=== PATIENT | female | born 1950 | race Caucasian/White ===

== ENCOUNTER → 2021-06-18 | Outpatient (CLI) | payer OTHER, SELFPAY ==
[2021-06-24 21:34] LABS: HPV Reflexed? NOT INDICATED
== END | disposition home or self-care (01) ==
PROVIDERS: Referring Provider Nurse Practitioner Family; Visit Provider Nurse Practitioner Family
DX: Z00.00 Encounter for general adult medical examination without abnormal findings (principal)
CPT/HCPCS: 88175; G0145

== ENCOUNTER 2021-07-15 14:58 | Outpatient (CLI) | payer BC, SELFPAY ==
--- NOTE | 2021-07-15 15:15 | BD_ITS ---
STUDY: DUAL ENERGY X-RAY ABSORPTIOMETRY / DXA REASON FOR EXAM: Female, 70 years old. Z780. The patient is postmenopausal. TECHNIQUE: Bone Mineral Density (BMD) measurements of lumbar spine and bilateral hips were obtained. COMPARISON: None. FINDINGS: Lumbar Spine (L1-L4): g/cm2 (0.994) / T-score (-0.4) / Z-score (1.6) Findings are suggestive of normal bone density with a low fracture risk. Left Femur Total: g/cm2 (0.755) / T-score (-1.5) / Z-score (-0.1) Left Femoral Neck: g/cm2 (0.644) / T-score (-1.8) / Z-score (-0.1) Right Femur Total: g/cm2 (0.758) / T-score (-1.5) / Z-score (-0.1) Right Femoral Neck: g/cm2 (0.647) / T-score (-1.8) / Z-score (-0.1) BD/Dexa Bone Density Study IMPRESSION: The patient is considered osteopenic as outlined below according to World Payam Organization (WHO) criteria with a moderate fracture risk. Reference Information: The T-score is the number of standard deviations above or below the standard which is normal for young adults at their peak bone mineral density. The World Health Organization (WHO) interprets the T-scores as follows: Above -1 Normal bone density Between -1 and -2.5 Osteopenia Equal to / or below -2.5 Osteoporosis As a practical clinical guideline, osteopenia may be graded as follows: Mild -1 through -1.5 Moderate -1.6 through -2.0 Severe -2.1 through -2.4 The Z-score is the number of standard deviations above or below age-matched controls. A Z-score of less than -1.5 would be considered abnormal. References: 1. NIH Osteoporosis and Related Bone Diseases www osteo.org 2. International Society for Clinical Densitometry www iscd.org 3. National Osteoporosis Foundation www nof.org Electronically Signed: Jd Vazquez MD at 15:22 EST , Service support ,
--- NOTE | 2021-07-15 15:40 | BI_ITS ---
MAMMOGRAPHY - BILATERAL SCREENING REASON FOR EXAM: Female, 70 years old. Routine annual screening examination. PERTINENT HISTORY: Mother with breast cancer. Remote right excisional breast biopsy. TECHNIQUE: Digital bilateral breast dayanara (3D mammographic acquisition) in the CC and MLO projections. 2-D mediolateral oblique (MLO) and craniocaudad (CC) views of both breasts were obtained. CAD: Full Field Digital Mammography with Computer Added Detection was performed. COMPARISON: Comparison is made with prior outside examination dated 04/19/2020. FINDINGS: Breast Composition: There are scattered areas of fibroglandular density. There are no dominant masses or suspicious calcifications. No other significant abnormalities are identified. There has been no significant change since the prior study. BI/SCRN MAMM (CAD)W/DAYANARA BILAT IMPRESSION: Stable bilateral screening mammogram. Yearly follow-up mammogram recommended. (A) ASSESSMENT CATEGORY: BIRADS Category 1: Negative. A letter regarding these results will be sent to the patient by the facility within 30 days. Approximately 10% of breast cancers are not detected by mammography. A normal mammogram should not delay biopsy of a clinically suspicious abnormality. [id number] Electronically Signed: Jd Vazquez MD at 8:35 EST , Service support ,
== END 2021-07-15 23:59 | disposition home or self-care (01) ==
PROVIDERS: PCP Family Medicine; Referring Provider Family Medicine; Visit Provider Nurse Practitioner Family
DX: Z12.31 Encounter for screening mammogram for malignant neoplasm of breast (principal); Z13.820 Encounter for screening for osteoporosis; Z78.0 Asymptomatic menopausal state
CPT/HCPCS: 77063; 77067; 77080

== ENCOUNTER 2022-06-11 10:00 | Outpatient (RCR) | payer BC, SELFPAY ==
--- NOTE | 2022-05-11 09:49 | HP.PTEVAL_ITS ---
Patient's Visit Information RUBI WEINBERG is a 71 year old F referred to Physical Therapy by Dr. Elroy Rizzo MD with a diagnosis of L Supraspinatus Tendonitis/Shoulder Pain. Date of Evaluation: 05/11/22 Physical Therapist: Magalis Antunez DPT - Visit Plan Frequency: 2x /Week Duration: 4 Weeks Plan: Focus on scapular strength/stabilization- pain free ROM and muscular endurance. HEP Given IE: Postural correction, scapular retractions, bilateral ER with OTB, Pec corner stretch, upper trap and levator stretch - Subjective Patient reports that she is having left shoulder pain for a couple of weeks- she worked through it- but realized that it was not going away and it was getting worse. Very specific. When she raises her arm and lifting overhead- lifting a stack of dishes from the upper cupboard- and having trouble at night sleeping. She is a side sleeper and it was hard to get comfortable. So she went to see Dr. Rizzo- no x-rays- sent to PT and gave her Meloxicam- she was given pendulums and wash cloth for flexion. She is much better but she has not tested it. She feels that its a little better. As long as she keeps the motion below 90 degrees its tolerable but sore. Biceps tendon area and into the upper arm. She was having some tightness and discomfort throughout the upper trap. No radiating pain- No increase in neck pain. Worst: 10/10 if she lowers her arm she is 0/10. She has always been to find a position that has been pain free. The pain is described as sharp/shooting. No SAL, blurred vision or dizziness. Right hand dominate. She has never had shoulder issues before. Was doing yoga and lifting weights but has stopped about 2 months ago- she enjoys it and plans to get back into it. She is normally pretty active. PMHx/Meds: no change since visit 04/11/22 with the addition of Meloxicam - Objective Posture: FH, RS- can correct with verbal and tactile cues but does not maintain. Gait: good arm swing and trunk rotation- FH. Palpation: tender along bicipital groove, upper trap and medial border of the scapula. ROM: Cervical: WFL slight tightness in UT and levator- Shoulder: AROM: Flexion: 160 degrees, Abd: 150 degrees pain with end range Flexion/Abduction, IR: equal, ER: 60 degrees, AAROM: WFL in all planes, Elbow/Wrist/Hand: WFL. Strength: Scap: fair minus- mild winging, Shoulder: 4+/5 throughout in neutral, Elbow: 5/5, Application Developer: 70 bilateral - Special Tests L Shoulder Lift Off Test - Subscapular Tear: Negative L Shoulder Empty Can - SS: Negative L Shoulder Belly Press - SupScap: Negative L Shoulder Neer - Impingement: Positive L Shoulder Boyd Honorio - Impingement: Positive L Shoulder Biceps Load Test - Labrum: Positive - Balance/Special Test Scores Quick DASH Score: 25.0000 - Goals Goal 1:: Patient will be I with HEP and progression Goal Time Frame: 4-6 Weeks Goal 2:: Patient will maintain proper posture t/o tx session to demo increased scap s/s Goal Time Frame: 4-6 Weeks Goal 3:: Patient will demo full AROM of the left shoulder Goal Time Frame: 4-6 Weeks Goal 4:: Patient will report 80% improvement Goal Time Frame: 4-6 Weeks - Rehabilitation Potential Physical Therapy Diagnosis: Patient presents with hypomobility- she has decreased UE ROM, scapular s/s and muscular endurance leading to poor posture and increased pain with ADL's. Rehabilitation Potential: Fair - Anticipated Interventions Patient/Client Instruction: Educate patient on: Benefits of Fitness Program Therapeutic Exercise to Include: Strength training, Endurance training, Balance training, Coordination, Agility training, Body mechanics, Postural training, Flexibilty training, Dynamic Lumbar Stabilization, Scapular Strength/Stabiliz ation For the Purpose of:: To improve muscle performance and motor function TENS: Yes Cryotherapy (ice pack, ice massage): Yes Thermo therapy (hot pack): Yes Ultrasound (thermal/non thermal): Yes Thank you for the opportunity to evaluate your patient. For Medicare and Medicare HMO plans, please review the plan of care and approve it. It will need to be FAXED BACK to us at [phone] for Medicare purposes. For Medicare only, by signing this I certify the plan of care. Please let me know if there are questions or concerns regarding this plan of care. Physician Signature: Date:
--- NOTE | 2022-06-11 10:57 | HP.PTDCSUM ---
It has been my pleasure to treat RUBI WEINBERG referred by Dr. Elroy Rizzo MD, with the diagnosis of L Supraspinatus Tendonitis/Shoulder Pain for a total of 11 visit(s). Discharge Date: Please see the following information for a summary of their discharge status. Subjective: Wednesday: she was doing great- no pain that she could distinguished between normal aches and pains-100%. Wednesday: over did in therapy on Wednesday. : she has been having pain in the same spot in both shoulders- 11/18 currently-describes the pain as sharp- she feels the pain is progressively getting better- she has been doing all stretching no weight bearing. L SH Pain Intensity (Out of 10): 4 % Improvement: 90 Objective/Function: Did not do final measurements as they would not be accurate as pt is sore today- she is doing great and will continue HEP and call if questions arise Goal 1:: Patient will be I with HEP and progression Goal Progress: Goal Met Goal 2:: Patient will maintain proper posture t/o tx session to demo increased scap s/s Goal Progress: Goal Met Goal 3:: Patient will demo full AROM of the left shoulder Goal Progress: Goal Met Goal 4:: Patient will report 80% improvement Goal Progress: Progressing Plan: 06/11/22: Discharge to [facility] If there are questions or concerns regarding this patient's physical therapy, please feel free to call me at [phone]. Thank you for the referral of this patient. Sincerely, Magalis Antunez, DPT Balance/Gait/Functional tests - Balance/Special Test Scores Quick DASH Score: 2.2724
== END 2022-06-11 19:00 | disposition home or self-care (01) ==
LOC: PT 10:00
PROVIDERS: PCP Family Medicine; Visit Provider Family Medicine
DX: M67.813 Other specified disorders of tendon, right shoulder (principal)
CPT/HCPCS: 97110; 97162; 97530

== ENCOUNTER → 2022-08-27 | Outpatient (CLI) | payer BC, SELFPAY ==
[2022-08-27 10:13] LABS: Absolute Lymphocyte Count 1.74 X10^3/uL (0.83-4.51); Absolute Neutrophil Count 3.9 X10^3/uL (2.0-7.7); Basophil# 0.05 X10^3/uL; Basophil% 0.8 % (0-1); Eosinophil# 0.12 X10^3/uL; Eosinophils% 1.9 % (0-5); Hematocrit 41.3 % (37-47); Hemoglobin 13.3 g/dL (12.0-15.0); Lymphocyte # 1.74 X10^3/ul (0.83-4.51); Lymphocyte % 27.7 % (19-41); Mean Corp Hgb Conc 32.2 g/dL (32-36); Mean Corpuscular Volume 99.5 fL (81-99); Monocyte# 0.51 X10^3/uL; Monocyte% 8.1 % (0-10); NRBC Flagged by Analyzer 0 % (0-5); Neutrophil # 3.85 X10^3/uL (2.7-7.7); Neutrophil % 61.2 % (47-70); Platelet Count 246 K/mm3 (150-450); RBC Distribution Width CV 11.9 % (11.6-14.6); RBC Distribution Width SD 44.5 fl (35.1-43.9); Red Blood Count 4.15 M/mm3 (4.2-5.4); White Blood Count 6.3 K/mm3 (4.4-11.0)
[2022-08-27 10:36] LABS: Vitamin D,25 Hydroxy 14.4 ng/mL
[2022-08-27 10:50] LABS: AST(SGOT) 22 U/L (15-37); Alanine Aminotransfer ALT/SGPT 20 U/L (13-56); Albumin, Serum 3.3 g/dL (3.2-5.0); Alkaline Phosphatase 85 U/L (45-117); Anion Gap 7 (5-15); BUN 18 mg/dL (7-18); BUN/Creat Ratio 27.7 RATIO (10-20); Calcium,Total 8.9 mg/dL (8.5-10.1); Chloride 106 mmol/L (98-107); Cholesterol 204 mg/dL (200); Creatinine, Serum 0.65 mg/dL (0.55-1.02); EST Glomerular Filtration Rate 96 mL/min (>60); Est Glom Filt Rate - Afr Amer 116 mL/min (>60); Globulin 3.4 g/dL (2.2-4.2); Glucose 85 mg/dL (74-106); High Density Lipoprotein 101 mg/dL; Potassium 3.6 mmol/L (3.5-5.1); Protein, Total 6.7 g/dL (6.4-8.2); Sodium Level 142 mmol/L (136-145); Thyroid Stim Hormone (TSH) 1.74 uIU/mL (0.358-3.74); Triglycerides 48 mg/dL; Very Low Density Lipoprotein 10 mg/dL (5-40)
== END | disposition home or self-care (01) ==
LOC: MFPLAB 08:25
PROVIDERS: PCP Family Medicine; Referring Provider Family Medicine; Visit Provider Family Medicine
DX: Z00.00 Encounter for general adult medical examination without abnormal findings (principal); M85.80 Other specified disorders of bone density and structure, unspecified site; L84 Corns and callosities
CPT/HCPCS: 36415; 80053; 80061; 82306; 84443; 85025

== ENCOUNTER → 2022-10-19 | Outpatient (CLI) | payer BC, SELFPAY | END | disposition home or self-care (01) | LOC: LAB 07:55 | PROVIDERS: PCP Family Medicine; Visit Provider Ophthalmology | DX: H02.89 Other specified disorders of eyelid (principal) | CPT/HCPCS: 36415 ==

== ENCOUNTER → 2023-07-30 | Outpatient (CLI) | payer BC, SELFPAY ==
--- OUTSIDE RECORDS SUMMARY | 2023-07-30 13:16 | XMS RPT_ITS | CCD ---
Author Name Unknown Address [facility] [place] [id number] Organization [facility] Care Team Providers Care Military Analyst Name Role Phone ROBERTO TODD Unavailable Unavailable GROESBECK, ROBERTO Unavailable Unavailable GROESBECK, MARIEL STEINER Unavailable Unavailabl e GROESBECK, MARIEL STEINER Unavailable Unavailabl e Problems Active Problems Problem Classification Problem Date Documented Da te Episodic/Chronic Unclassified (1 source) Unknown / UNK(Unknown) Onset: 03-23-2017 Past or Other Problems Problem Classification Problem Date Documented Da te Episodic/Chronic Unclassified (1 source) SCREENING Onset: 03-23-2017 Encounters Encounter Date Encounter Type Care Provider Facility Start: 03-23-2017 End: 03-24-2017 Ambulatory ROBERTO GROESBECK Facility:[facility] Payers Date Payer Category Payer Policy ID Unknown Clinical Note 05-28-2021 Note Date & Type Note Facility 05-28-2021 Note Patient Outreach (IN [facility]) RUBI WEINBERG ([id number]) 1950 F Date Time Provider Department 05/28/21 MULUGETA LEWIS During your visit today, we recorded the following information about you: Allergies As of Date: 05/28/2021 (No Known Allergies) Date Reviewed: 03/25/2020 Reviewed by: Kelly Holguin RN - Fully Assessed Visit Diagnosis:Encounter for screening mammogram for breast cancer [Z12.31] Order(s):[facility] SCREENING [[id number]] Order #: [id number] FUTURE Prescriptions as of 06/02/2021 - omeprazole (PRILOSEC) 20 mg capsule Take 1 capsule by mouth daily before breakfast. 1/2 hr before meal. - fexofenadine (NAYLA ALLERGY) 180 mg tablet Take 180 mg by mouth once daily. Problem List As Of Date 05/28/2021 Noted Resolved Fracture of ankle, trimalleolar, right, closed *04/24/2015 NEGATIVE MEDICAL HISTORY 02/25/2019 Chronic cough [R05.3] 11/08/2017 Encounter Status:Closed by STERLING REYUSER on 06/02/21 [facility] Summary Purpose Family History No Family History Records FoundNo Family History Records FoundNo Family History Records Found Advance Directives No Advanced Directives Records FoundNo Advanced Directives Records FoundNo Advanced Directives Records Found Additional Source Comments INFORMATION SOURCE (unrecogn ized section and content) DATE CREATED AUTHOR AUTHOR'S ORGANIZ ATION 01/05/2018 [facility] DATE CREATED AUTHOR AUTHOR'S ORGANIZ ATION 08/04/2021 [facility] FOR RECORDS PERTAINING TO PATIENTS WHO ARE OR HAVE BEEN ENROLLED IN A CHEMICAL DEPENDENCY/SUBSTANCEABUSE PROGRAM, SOME INFORMATION MAY BE OMITTED. This clinical summary was aggregated from multiple sources. Caution should be exercised in using it in the provision of clinical care. This summary normalizes information from multiple sources, and as a consequence, information in this document may materially change the coding, format and clinical context of patient data. In addition, data may be omitted in some cases. CLINICAL DECISIONS SHOULD BE BASED ON THE PRIMARY CLINICAL RECORDS. [facility] [email or web address] [facility]. provides no warranty or guarantee of the accuracy or completeness of information in this document.
[2023-07-30 16:07] LABS: ALB/GLOB Ratio 1.1 RATIO (0.9-2.4); AST(SGOT) 29 U/L (15-37); Alanine Aminotransfer ALT/SGPT 24 U/L (13-56); Albumin, Serum 3.8 g/dL (3.2-5.0); Alkaline Phosphatase 100 U/L (45-117); Anion Gap 5 (5-15); BUN 16 mg/dL (7-18); BUN/Creat Ratio 23.9 RATIO (10-20); Calcium,Total 9.2 mg/dL (8.5-10.1); Chloride 108 mmol/L (98-107); Creatinine, Serum 0.67 mg/dL (0.55-1.02); EST Glomerular Filtration Rate 92 mL/min (>60); Est Glom Filt Rate - Afr Amer 112 mL/min (>60); Globulin 3.6 g/dL (2.2-4.2); Glucose 89 mg/dL (74-106); Potassium 3.7 mmol/L (3.5-5.1); Protein, Total 7.4 g/dL (6.4-8.2); Sodium Level 141 mmol/L (136-145); Thyroid Stim Hormone (TSH) 2.13 uIU/mL (0.358-3.74)
[2023-07-30 16:24] LABS: Microalbumin,Random Urine 17.6 mg/L (NO RANGE EST.); Microalbumin:Creatinine Ratio 27.1 mg/g CRE (<30 mg/g CRE)
== END | disposition home or self-care (01) ==
LOC: MTLAB 12:55
PROVIDERS: PCP Family Medicine; Referring Provider Family Medicine; Visit Provider Family Medicine
DX: I10 Essential (primary) hypertension (principal)
CPT/HCPCS: 36415; 80053; 82043; 82570; 84443

== ENCOUNTER → 2024-01-27 | Outpatient (CLI) | payer BC, SELFPAY ==
[2024-01-27 15:09] LABS: Absolute Lymphocyte Count 2.26 X10^3/uL (0.83-4.51); Absolute Neutrophil Count 4.5 X10^3/uL (2.0-7.7); Basophil# 0.07 X10^3/uL; Basophil% 0.9 % (0-1); Eosinophil# 0.18 X10^3/uL; Eosinophils% 2.4 % (0-5); Hematocrit 41.5 % (37-47); Hemoglobin 13.9 g/dL (12.0-15.0); Lymphocyte # 2.26 X10^3/ul (0.83-4.51); Lymphocyte % 29.6 % (19-41); Mean Corp Hgb Conc 33.5 g/dL (32-36); Mean Corpuscular Volume 95.4 fL (81-99); Mean Platelet Vol. 10.1 fl (6.2-12.0); Monocyte% 7.9 % (0-10); NRBC Flagged by Analyzer 0 % (0-5); Neutrophil % 58.9 % (47-70); Platelet Count 282 K/mm3 (150-450); RBC Distribution Width CV 11.7 % (11.6-14.6); RBC Distribution Width SD 41.3 fl (35.1-43.9); Red Blood Count 4.35 M/mm3 (4.2-5.4); White Blood Count 7.6 K/mm3 (4.4-11.0)
[2024-01-27 15:41] LABS: ALB/GLOB Ratio 1.1 RATIO (0.9-2.4); AST(SGOT) 28 U/L (15-37); Alanine Aminotransfer ALT/SGPT 23 U/L (13-56); Albumin, Serum 3.8 g/dL (3.2-5.0); Alkaline Phosphatase 85 U/L (45-117); Anion Gap 7 (5-15); BUN 19 mg/dL (7-18); BUN/Creat Ratio 26.8 RATIO (10-20); Calcium,Total 9.3 mg/dL (8.5-10.1); Chloride 105 mmol/L (98-107); Creatinine, Serum 0.71 mg/dL (0.55-1.02); EST Glomerular Filtration Rate 86 mL/min (>60); Est Glom Filt Rate - Afr Amer 104 mL/min (>60); Globulin 3.6 g/dL (2.2-4.2); Glucose 91 mg/dL (74-106); Magnesium 2.1 mg/dL (1.6-2.6); Potassium 4.1 mmol/L (3.5-5.1); Protein, Total 7.4 g/dL (6.4-8.2); Sodium Level 140 mmol/L (136-145); Thyroid Stim Hormone (TSH) 2.06 uIU/mL (0.358-3.74)
== END | disposition home or self-care (01) ==
LOC: MFPLAB 12:20
PROVIDERS: PCP Family Medicine; Visit Provider Family Medicine
DX: R00.2 Palpitations (principal)
CPT/HCPCS: 36415; 80053; 83735; 84443; 85025

== ENCOUNTER → 2024-04-28 | Outpatient (CLI) | payer MEDICARE, OTHER, SELFPAY ==
--- OUTSIDE RECORDS SUMMARY | 2024-04-28 11:08 | XMS RPT_ITS | CCD ---
Author Organization [facility] Care Team Providers Care Fuel Efficient Aircraft Designer Name Role Phone ROBERTO TODD Unavailable GROESBECKROBERTO Unavailable GROESBECKMARIEL Unavailable Unavailabl e GROESBECK, MARIEL STEINER Unavailable Unavailabl e Problems Active Problems Problem Classification Problem Date Documented Da te Episodic/Chronic Unclassified (1 source) Unknown / UNK(Unknown) Onset: 03-23-2017 Past or Other Problems Problem Classification Problem Date Documented Da te Episodic/Chronic Unclassified (1 source) SCREENING Onset: 03-23-2017 Encounters Encounter Date Encounter Type Care Provider Facility Start: 03-23-2017 End: 03-24-2017 Ambulatory ROBERTO TODD Facility:[facility] Payers Date Payer Category Payer Policy ID Unknown Clinical Note 05-28-2021 Note Date & Type Note Facility 05-28-2021 Note Patient Outreach (IN [facility]) RUBI WEINBERG ([id number]) 1950 F Date Time Provider Department 05/28/21 MULUGETA LEWIS During your visit today, we recorded the following information about you: Allergies As of Date: 05/28/2021 (No Known Allergies) Date Reviewed: 03/25/2020 Reviewed by: Kelly Holguin RN - Fully Assessed Visit Diagnosis:Encounter for screening mammogram for breast cancer [Z12.31] Order(s):[facility] SCREENING [[id number]] Order #: [id number] FUTURE Prescriptions as of 06/02/2021 - omeprazole (PRILOSEC) 20 mg capsule Take 1 capsule by mouth daily before breakfast. 1/2 hr before meal. - fexofenadine (NAYLA ALLERGY) 180 mg tablet Take 180 mg by mouth once daily. Problem List As Of Date 05/28/2021 Noted Resolved Fracture of ankle, trimalleolar, right, closed *04/24/2015 NEGATIVE MEDICAL HISTORY 02/25/2019 Chronic cough [R05.3] 11/08/2017 Encounter Status:Closed by EPIC, PRODUSER on 06/02/21 [facility] Summary Purpose Family History No Family History Records FoundNo Family History Records FoundNo Family History Records Found Advance Directives No Advanced Directives Records FoundNo Advanced Directives Records FoundNo Advanced Directives Records Found Additional Source Comments INFORMATION SOURCE (unrecogn ized section and content) DATE CREATED AUTHOR 01/05/2018 [facility] DATE CREATED AUTHOR AUTHOR'S ORGANIZ ATION 01/05/2018 [facility] DATE CREATED AUTHOR AUTHOR'S ORGANIZ ATION 08/04/2021 [facility] FOR RECORDS PERTAINING TO PATIENTS WHO [...] BE BASED ON THE PRIMARY CLINICAL RECORDS. [facility] [employer] [facility]. provides no warranty or guarantee of the accuracy or completeness of information in this document.
[2024-04-28 12:21] LABS: Erythrocyte Sedimentation Rate 8 mm/hr (0-30)
[2024-04-28 12:22] LABS: Hematocrit 38.1 % (37-47); Mean Corp Hgb Conc 34.1 g/dL (32-36); Mean Corpuscular Hgb 32.7 pg (27.0-32.0); Mean Platelet Vol. 9.5 fl (6.2-12.0); Platelet Count 255 K/mm3 (150-450); RBC Distribution Width CV 11.7 % (11.6-14.6); RBC Distribution Width SD 41.4 fl (35.1-43.9); Red Blood Count 3.97 M/mm3 (4.2-5.4); White Blood Count 7.1 K/mm3 (4.4-11.0)
[2024-04-28 12:48] LABS: ALB/GLOB Ratio 0.9 RATIO (0.9-2.4); AST(SGOT) 30 U/L (15-37); Alanine Aminotransfer ALT/SGPT 27 U/L (13-56); Albumin, Serum 3.4 g/dL (3.2-5.0); Alkaline Phosphatase 87 U/L (45-117); Anion Gap 3 (5-15); BUN 22 mg/dL (7-18); BUN/Creat Ratio 28.6 RATIO (10-20); Calcium,Total 9.3 mg/dL (8.5-10.1); Chloride 106 mmol/L (98-107); Creatinine, Serum 0.77 mg/dL (0.55-1.02); EST Glomerular Filtration Rate 79 mL/min (>60); Est Glom Filt Rate - Afr Amer 95 mL/min (>60); Globulin 3.6 g/dL (2.2-4.2); Glucose 91 mg/dL (74-106); Magnesium 2.1 mg/dL (1.6-2.6); Potassium 3.9 mmol/L (3.5-5.1); Sodium Level 138 mmol/L (136-145)
[2024-05-01 15:10] LABS: Lyme Scn Total Ab w/Rflx Negative (Negative); PROEL- A/G Ratio 1.2 (0.7-1.7); PROEL- Albumin 3.6 g/dL (2.9-4.4); PROEL- Alpha-1 Globulin 0.3 g/dL (0.0-0.4); PROEL- Alpha-2 Globulin 0.7 g/dL (0.4-1.0); PROEL- Beta Globulin 1.1 g/dL (0.7-1.3); PROEL- Gamma Globulin 0.9 g/dL (0.4-1.8); PROEL- TOTAL PROTEIN 6.6 g/dL (6.0-8.5); PROEL-M-Spike Not Observed g/dL (Not Observed)
== END | disposition home or self-care (01) ==
LOC: MFPLAB 10:49
PROVIDERS: PCP Family Medicine; Visit Provider Family Medicine
DX: I47.19 Other supraventricular tachycardia (principal); R53.83 Other fatigue
CPT/HCPCS: 80053; 83735; 84165; 84443; 85027; 85652; 86618

== ENCOUNTER → 2024-06-21 | Outpatient (CLI) | payer MEDICARE, OTHER, SELFPAY ==
--- NOTE | 2024-06-21 15:15 | BI_ITS ---
MAMMOGRAPHY - BILATERAL SCREENING REASON FOR EXAM: Female, 73 years old. Routine annual screening examination. PERTINENT HISTORY: Mother with breast cancer. History of prior right excisional breast biopsy. TECHNIQUE: Digital bilateral breast dayanara (3D mammographic acquisition) in the CC and MLO projections. 2-D mediolateral oblique (MLO) and craniocaudad (CC) views of both breasts were obtained. CAD: Full Field Digital Mammography with Computer Added Detection was performed. COMPARISON: Comparison is made with prior study dated July 15, 2021. FINDINGS: Breast Composition: There are scattered areas of fibroglandular density. There are no dominant masses or suspicious calcifications. No other significant abnormalities are identified. There has been no significant change since the prior study. BI/SCRN MAMM (CAD)W/DAYANARA BILAT IMPRESSION: Stable bilateral screening mammogram. Yearly follow-up mammogram recommended. (A) ASSESSMENT CATEGORY: BIRADS Category 1: Negative. A letter regarding these results will be sent to the patient by the facility within 30 days. Approximately 10% of breast cancers are not detected by mammography. A normal mammogram should not delay biopsy of a clinically suspicious abnormality. [id number] Electronically Signed: Jd Vazquez MD at 8:11 EST ,
--- NOTE | 2024-06-21 15:15 | BD_ITS ---
STUDY: DUAL ENERGY X-RAY ABSORPTIOMETRY / DXA REASON FOR EXAM: Female, 73 years old. V780 TECHNIQUE: Bone Mineral Density (BMD) measurements of lumbar spine and bilateral hips were obtained. COMPARISON: Comparison is made with prior study dated July 15, 2021. FINDINGS: Lumbar Spine (L1-L4): g/cm2 (1.119) / T-score (0.7) / Z-score (2.9) Findings are suggestive of normal bone density with a low fracture risk. Left Femur Total: g/cm2 (0.759) / T-score (-1.5) / Z-score (0.1) Left Femoral Neck: g/cm2 (0.616) / T-score (-2.1) / Z-score (-0.2) Right Femur Total: g/cm2 (0.725) / T-score (-1.8) / Z-score (-0.2) Right Femoral Neck: g/cm2 (0.627) / T-score (-2.0) / Z-score (-0.1) The T-Scores on the most recent prior examination were: Lumbar Spine (L1-L4): There has been improvement of bone density since the previous examination. Left Femur Total: which represents an improvement of 0.5%. Right Femur Total: which represents a worsening of 4.4%. BD/Dexa Bone Density Study IMPRESSION: The patient is considered osteopenic as outlined below according to World Payam Organization (WHO) criteria with a high fracture risk. There has been improvement of bone density since the previous examination. Reference Information: The T-score is the number of standard deviations above or below the standard which is normal for young adults at their peak bone mineral density. The World Health Organization (WHO) interprets the T-scores as follows: Above -1 Normal bone density Between -1 and -2.5 Osteopenia Equal to / or below -2.5 Osteoporosis As a practical clinical guideline, osteopenia may be graded as follows: Mild -1 through -1.5 Moderate -1.6 through -2.0 Severe -2.1 through -2.4 The Z-score is the number of standard deviations above or below age-matched controls. A Z-score of less than -1.5 would be considered abnormal. References: 1. NIH Osteoporosis and Related Bone Diseases www osteo.org 2. International Society for Clinical Densitometry www iscd.org 3. National Osteoporosis Foundation www nof.org Electronically Signed: Jd Vazquez MD at 13:19 EST ,
== END | disposition home or self-care (01) ==
PROVIDERS: PCP Family Medicine
DX: Z12.31 Encounter for screening mammogram for malignant neoplasm of breast (principal); Z80.3 Family history of malignant neoplasm of breast; Z13.820 Encounter for screening for osteoporosis; Z78.0 Asymptomatic menopausal state
CPT/HCPCS: 77063; 77067; 77080

== ENCOUNTER → 2024-08-04 | Outpatient (CLI) | payer MEDICARE, OTHER, SELFPAY ==
--- NOTE | 2024-08-04 14:02 | RAD_ITS ---
STUDY: X-RAY CHEST REASON FOR EXAM: Female, 73 years old. Cough. TECHNIQUE: Frontal and lateral views of the chest. COMPARISON: None. FINDINGS: Diffuse mild interstitial prominence. There is no demonstrated pleural abnormality. Cardiomegaly. Normal mediastinum and sharita. Normal visualized pulmonary arteries. Aortic tortuosity with calcification. Diffuse moderate thoracic spondylosis. Normal visualized ribs, clavicles, and shoulders. There is no demonstrated abnormality of the visualized soft tissue structures of the upper abdomen. RAD/Chest PA and Lateral IMPRESSION: Cardiomegaly with interstitial prominence. No active or acute cardiopulmonary disease. Electronically Signed: Jaguar Garcia MD at 9:51 EST ,
== END | disposition home or self-care (01) ==
LOC: MTRAD 13:57
PROVIDERS: PCP Family Medicine; Referring Provider Family Medicine; Visit Provider Family Medicine
DX: R05.3 Chronic cough (principal)
CPT/HCPCS: 71046

== ENCOUNTER → 2024-08-15 | Outpatient (CLI) | payer MEDICARE, OTHER, SELFPAY ==
--- NOTE | 2024-08-15 13:34 | CT_ITS ---
EXAM: CT Chest Without Intravenous Contrast CLINICAL INDICATION: TECHNIQUE: Axial computed tomography images of the chest without intravenous contrast. This CT exam was performed using one or more of the following dose reduction techniques: automated exposure control, adjustment of the mA and/or kV according to patient size, and/or use of iterative reconstruction technique. COMPARISON: No relevant prior studies available. FINDINGS: LUNGS AND PLEURAL SPACES: Mild lung emphysema. Dependent atelectasis. No pneumothorax. No significant effusion. No suspicious pulmonary nodules. HEART: Unremarkable. No cardiomegaly. No significant pericardial effusion. No significant coronary artery calcifications. MEDIASTINUM: Scattered mediastinal lymph nodes some of which are upper limits of normal in size and are most likely reactive lymph nodes. BONES/JOINTS: Unremarkable. No acute fracture. No dislocation. SOFT TISSUES: Unremarkable. VASCULATURE: Unremarkable. No thoracic aortic aneurysm. LYMPH NODES: See above. CT/Chest without Contrast IMPRESSION: 1. No suspicious pulmonary nodules. 2. Scattered mediastinal lymph nodes some of which are upper limits of normal in size and are most likely reactive lymph nodes. 3. Continue low-dose CT scan of the chest in 12 months is recommended. Reading Location: [facility]
== END | disposition home or self-care (01) ==
LOC: CT 13:32
PROVIDERS: PCP Family Medicine; Referring Provider Family Medicine; Visit Provider Family Medicine
DX: J84.10 Pulmonary fibrosis, unspecified (principal)
CPT/HCPCS: 71250

== ENCOUNTER → 2024-08-16 | Outpatient (CLI) | payer MEDICARE, OTHER, SELFPAY | END | disposition home or self-care (01) | LOC: PSN 06:38 | PROVIDERS: PCP Family Medicine; Referring Provider Family Medicine; Visit Provider Family Medicine | DX: R05.3 Chronic cough (principal) | CPT/HCPCS: 94060; 94726; 94729 ==

== ENCOUNTER → 2024-09-13 | Outpatient (CLI) | payer MEDICARE, OTHER, SELFPAY ==
--- NOTE | 2024-09-13 09:54 | ECHOD_ITS ---
Reason For Study Reason For Study: Cardiomegaly Procedure This was a 2D Doppler, Color Flow transthoracic echocardiogram. Exam performed in department. Left Ventricle Normal size and thickness. Left ventricular systolic function is normal. The left ventricular ejection fraction is 65 %. Normal diastology for age. Right Ventricle Normal right ventricle. Atria The left and right atria are normal. Cannot exclude tiny PFO. Mitral Valve Trivial mitral valve insufficiency. Tricuspid Valve Moderate (2+) tricuspid valve insufficiency. Right ventricular systolic pressure estimated to be 48 mmHg. Aortic Valve Trisinus/trileaflet aortic valve. Pulmonic Valve Mild (1+) pulmonic valve insufficiency. Great Vessels Normal sized aortic root. Pericardium/Pleural No pericardial effusion. MMode/2D Measurements & Calculations LVIDd: 4.2 cm IVSd: 1.1 cm Ao root diam: 3.6 cm LVIDs: 2.6 cm LVPWd: 1.1 cm RVDd: 4.2 cm FS: 37.9 % LAV(MOD-bp): 50.1 ml LVAd ap4: 23.4 cm2 SV(MOD-sp4): 36.5 ml LAV(MOD-bp) Indexed: 25.3 ml/m2 LVLd ap4: 7.7 cm SI(MOD-sp4): 18.4 ml/m2 LAV(MOD-sp2): 55.9 ml EDV(MOD-sp4): 57.8 ml LAV(MOD-sp4): 44.3 ml EDV(sp4-el): 60.2 ml LVAs ap4: 12.9 cm2 LVLs ap4: 6.8 cm ESV(MOD-sp4): 21.3 ml ESV(sp4-el): 21.0 ml EF(MOD-sp4): 63.1 % EF(sp4-el): 65.2 % SV(sp4-el): 39.3 ml LA A4 area: 18.2 cm2 LA dimension(2D): 3.4 cm RA A4 area: 19.6 cm2 Time Measurements MV dec time: 0.31 sec Doppler Measurements & Calculations MV E max roel: 68.2 cm/sec Lat Peak E' Roel: 11.1 cm/sec Med Peak E' Roel: 7.2 cm/sec MV A max roel: 95.8 cm/sec E/E' lat: 6.2 E/E' med: 9.5 MV E/A: 0.71 MV V2 max: 120.8 cm/sec MV P1/2t max roel: 83.0 cm/sec Ao V2 max: 137.9 cm/sec MV max P.8 mmHg MV P1/2t: 107.9 msec Ao max P.6 mmHg MV V2 mean: 60.9 cm/sec Ao V2 mean: 95.3 cm/sec MV mean P.7 mmHg MV dec slope: 225.5 cm/sec2 Ao mean P.1 mmHg MV V2 VTI: 30.9 cm MVA(P1/2t): 2.0 cm2 Ao V2 VTI: 30.5 cm AV (velocity ratio): 0.93 LV V1 max: 134.4 cm/sec PA V2 max: 95.3 cm/sec LV V1 max P.3 mmHg PI dec slope: 172.0 cm/sec2 LV V1 mean P.3 mmHg LV V1 mean: 99.2 cm/sec LV V1 VTI: 28.2 cm TR max roel: 287.0 cm/sec TR max P.0 mmHg ECHO/Echo Complete Interpretation Summary The left ventricular ejection fraction is 65 %. Cannot exclude tiny PFO. Moderate (2+) tricuspid valve insufficiency. Right ventricular systolic pressure estimated to be 48 mmHg. Mild (1+) pulmonic valve insufficiency. Ordering Physician: Jayme Velazquez Referring Physician: Jayme Velazquez Performed By: Marcin Leonard RCS
== END | disposition home or self-care (01) ==
LOC: CVS 09:53
PROVIDERS: PCP Family Medicine; Referring Provider Family Medicine; Visit Provider Family Medicine
DX: I51.7 Cardiomegaly (principal)
CPT/HCPCS: 93306

== ENCOUNTER → 2024-10-26 | Outpatient (CLI) | payer MEDICARE, OTHER, SELFPAY | END | disposition home or self-care (01) | LOC: SL 20:00 | PROVIDERS: PCP Family Medicine; Referring Provider Family Medicine; Visit Provider Family Medicine | DX: G47.30 Sleep apnea, unspecified (principal) | CPT/HCPCS: 95810 ==

== ENCOUNTER → 2025-01-10 | Outpatient (CLI) | payer MEDICARE, OTHER, SELFPAY ==
--- OUTSIDE RECORDS SUMMARY | 2025-01-10 22:24 | XMS RPT_ITS | CCD ---
Author Organization [facility] CliniSyde Care Team Providers Care Scientific Investigator Name Role Phone GROESBECK, ROBERTO Unavailable Unavailable GROESBECK, ROBERTO Unavailable Unavailable GROESBECK, MARIEL JATIN Unavailable Unavailabl e GROESBECK, MARIEL STEINER Unavailable Unavailabl e Dr. Cris Rizzo Primary Care Provider [phone] Cris Rizzo Referring Provider [phone] MILENA Hernandez Attending Provider Matthias SAMSON, Cris Pop Primary Care Provider [phone] Cris Rizzo MD Primary Care Provider Joslyn ORTHOPEDIC MECHANIC-CKae Attending Provider [phone] Joslyn ORTHOPEDIC MECHANIC-CKae Referring Provider [phone] Cris Rizzo MD Attending Provider [phone] Cris Rizzo MD Referring Provider [phone] Jayme Velazquez MD Attending Provider Dr. Jayme Velazquez MD Referring Provider Dr. González Cole MD Attending Provider KAE JORGENSEN Attending Provider [phone] KAE JORGENSEN Referring Provider Dr. Cris Rizzo MD Primary Care Provider Dr. Cris Rizzo MD Attending Provider [phone] Cris Rizzo MD Referring Provider [phone] Mayito Alvarado DO Attending Provider Cris Rizzo Attending Unavailable Cris Rizzo Referring Unavailable Cris Rzizo Primary Care Unavailable Cris Rizzo Referring Unavailable Rizzo, Cris Primary Care Unavailable Cris Rizzo Attending Unavailable KM LINDER Attending Unavailable KM LINDER Referring Unavailable Rizzo, Cris Primary Care Unavailable Rizzo, Cris Primary Care Unavailable Jayme Velazquez Attending Unavailable Jayme Velazquez Referring Unavailable Rizzo, Cris Primary Care Unavailable Rizzo, Cris Attending Unavailable Rizzo, Cris Referring Unavailable Rizzo, Cris Primary Care Unavailable Rizzo, Cris Attending Unavailable Rizzo, Cris Attending Unavailable Rizzo, Cris Primary Care Unavailable Rizzo, Cris Referring Unavailable Rizzo, Cris Primary Care Unavailable Mayito Alvarado Attending Unavailable Rizzo, Cris Primary Care Unavailable González Cole Attending Unavailable Mayito Alvarado Attending Unavailable Rizzo, Cris Attending Unavailable Rizzo, Cris Referring Unavailable Rizzo, Cris Primary Care Unavailable SHAILESH, BATHMAPRIYA Attending NATHALIA Dudley Referring Unavailable RIZZO, CRIS A Primary Care Unavailable SANJANA ROSENBAUM Referring Unavailable RIZZO, CRIS A Primary Care Unavailable SHAILESH, BATHMAPRIYA Referring Margo RIZZO, CRIS A Primary Care Unavailable SHAILESH, BATHMAPRIYA Referring Margo RIZZO, CRIS A Primary Care Unavailable SHAILESH, BATHMAPRIYA Referring Margo RIZZO, CRIS A Primary Care Unavailable MATTHIAS, CRIS A Primary Care Unavailable YOSELYN ALVARADO Referring Unavailable RIZZO, CRIS A Primary Care Unavailable YOSELYN ALVARADO Attending Unavailable Medications Current Medications Medication Drug Class(es) Dates Sig (Normalized) Sig (Original) 24 hr dilTIAZem hydrochloride 180 mg extended release oral capsule (12 sources) Calcium Channel Rosa Maria Start: 01-03-2025 take 1 capsule by mouth once daily Diltiazem Hcl 180 mg capsule,extended release 24 hr Active 180 mg PO daily January 03, 2025 12:00am Start: 07-20-2024 take 1 capsule by mouth once d ilTIAZem CR (TIAZAC, TAZTIA XT) 180 mg 24 hr capsule Take 1 capsule by mouth every afternoon. 07/20/2024 Active indapamide 1.25 mg oral tablet (12 sources) Thiazide-like Diuretic Start: 01-03-2025 take 0.625-1.25 mg by mouth once daily Indapamide 1.25 mg tablet Active 0.625 - 1.25 mg PO daily January 03, 2025 12:00am Start: 01-10-2024 take 1 tablet by barry th once daily indapamide (LOZOL) 1.25 mg tablet Take 1.25 mg by mouth once daily. 01/10/2024 Active MULTIVITAMIN ORAL (11 sources) MULTIVITAMIN ORA L Take by mouth once daily. Active telmisartan 20 mg oral tablet (12 sources) Angiotensin 2 Receptor Rosa Maria Start: take 1 tablet by mouth once daily Telmisartan 20 mg tablet Active 20 mg PO daily January 03, 2025 12:00am Start: 01-10-2024 take 1 tablet by barry th once daily Telmisartan 20 mg tablet Take 20 mg by mouth once daily. 01/10/2024 Active Completed/Discontinued Medications Medication Drug Class(es) Dates Sig (Normalized) Sig (Original) fexofenadine hydrochloride 180 mg oral tablet (1 source) Histamine-1 Receptor Antagonist End: 09-05-2024 take 1 tablet by mouth once daily fexofenadine (NAYLA ALLERGY) 180 mg tablet Take 180 mg by mouth once daily. 09/05/2024 Discontinued omeprazole 20 mg delayed release oral capsule (1 source) Proton Pump Inhibitor Start: 03-06-2020 End: 09-05-2024 take 1 capsule by mouth once daily before breakfast omeprazole (PRILOSEC) 20 mg capsule Indications: Chronic cough Take 1 capsule by mouth daily before breakfast. 1/2 hr before meal. 90 capsule 3 03/06/2020 09/05/2024 Discontinued Problems Active Problems Problem Classification Problem Date Documented Date Episodic/Chronic Esophageal disorders (1 source) Gastroesophageal reflux disease without esophagitis; Translations: [Gastro-esophageal reflux disease without esophagitis] 10-24-2024 Chronic Other and ill-defined heart disease (1 source) Cardiomegaly; Translations: [Cardiomegaly] Onset: 09-24-2024 Chronic Other lower respiratory disease (17 sources) Interstitial lung disease; Translations: [Interstitial pulmonary disease, unspecified] Onset: 12-18-2024 09-05-2024 Chronic Other lower respiratory disease (1 source) Pulmonary fibrosis, unspecified; Translations: [Pulmonary fibrosis, unspecified] Onset: 08-30-2024 Chronic Other lower respiratory disease (2 sources) Interstitial pulmonary disease, unspecified; Translations: [Interstitial lung disease (HCC)] Onset: 10-24-2024 Chronic Other screening for suspected conditions (not mental disorders or infectious disease) (1 source) Encounter for screening mammogram for malignant neoplasm of breast; Translations: [Encounter for screening mammogram for malignant neoplasm of breast] Onset: 10-16-2024 Episodic Other skin disorders (3 sources) Whitfield hair; Translations: [Variations in hair color] 10-25-2024 Episodic Other skin disorders (1 source) Variations in hair color; Translations: [Whitfield hair] Onset: 12-18-2024 Episodic Other upper respiratory infections (7 sources) Upper respiratory infection; Translations: [Acute upper respiratory infection, unspecified] Episodic Residual codes; unclassified (1 source) Awaiting transplantation of lung; Translations: [Awaiting organ transplant status] 12-19-2024 Chronic Residual codes; unclassified (2 sources) Obstructive sleep apnea syndrome; Translations: [Obstructive sleep apnea (adult) (pediatric)] 01-03-2025 Chronic Residual codes; unclassified (1 source) Sleep apnea, unspecified; Translations: [Sleep apnea, unspecified] Onset: 11-01-2024 Chronic Residual codes; unclassified (1 source) Awaiting organ transplant status; Translations: [Lung transplant candidate] Onset: 12-19-2024 Chronic Residual codes; unclassified (3 sources) Family history of disorder of lung; Translations: [Family history of other diseases of the respiratory system] 10-25-2024 Episodic Residual codes; unclassified (1 source) Family history of malignant neoplasm of pancreas; Translations: [Family history of malignant neoplasm of digestive organs] 12-19-2024 Episodic Residual codes; unclassified (1 source) Family history of breast cancer; Translations: [Family history of malignant neoplasm of breast] 12-19-2024 Episodic Residual codes; unclassified (1 source) Family history of malignant neoplasm of kidney; Translations: [Family history of malignant neoplasm of kidney] 12-19-2024 Episodic Residual codes; unclassified (1 source) Family history of interstitial lung disease; Translations: [Family history of other diseases of the respiratory system] 12-19-2024 Episodic Residual codes; unclassified (2 sources) Family history of other diseases of the respiratory system; Translations: [Family history of pulmonary fibrosis] Onset: 12-19-2024 Episodic Residual codes; unclassified (1 source) Family history of malignant neoplasm of digestive organs; Translations: [Family history of pancreatic cancer] Onset: 12-19-2024 Episodic Residual codes; unclassified (1 source) Family history of malignant neoplasm of breast; Translations: [Family history of breast cancer] Onset: 12-19-2024 Episodic Residual codes; unclassified (1 source) Family history of malignant neoplasm of kidney; Translations: [Family history of kidney cancer] Onset: 12-19-2024 Episodic Unclassified (1 source) Unknown / UNK(Unknown) Onset: 03-23-2017 Unclassified (1 source) Other supraventricular tachycardia; Translations: [Other supraventricular tachycardia] Onset: 05-25-2024 Past or Other Problems Problem Classification Problem Date Documented Da te Episodic/Chronic Cardiac dysrhythmias (1 source) Palpitations; Translations: [Palpitations] Onset: 02-14-2024 Episodic Fracture of lower limb (11 sources) Closed trimalleolar fracture of right ankle; Translations: [Displaced trimalleolar fracture of right lower leg, initial encounter for closed fracture] Onset: 04-24-2015 04-24-2015 Episodic Other lower respiratory disease (15 sources) Chronic cough; Translations: [Chronic cough] Onset: 11-08-2017 09-05-2024 Episodic Unclassified (1 source) SCREENING Onset: 03-23-2017 Unclassified (11 sources) NEGATIVE MEDICAL HISTORY Resolved: 02-25-2019 02-25-2019 Results Test Name Value Interpretation Reference Range Facility Pulmonary Visit Reporton Pulmonary Visit Report [facility] Medicine of [address] [place] [address] OFFICE VISIT Date of Service: 01/03/25 MR#: [id number] Acct: [id number] Name: RUBI MEJIA Rep #: [id number] : 1950 Provider: Dr. Mayito Alvarado DO Age/Sex: 74/F [place] [facility] [place]: Signed Assessment and Plan Assessment and Plan (1) BRYANNA (obstructive sleep apnea): Status: Acute Plan: The patient was diagnosed with severe obstructive sleep apnea in October 2024 following a diagnostic polysomnogram. At this time, recommend starting the patient on auto titrating CPAP therapy nightly. Orders have been placed accordingly. The patient will need to follow-up in our office within 90 days to review her compliance report and ensure therapeutic response to therapy. (2) Interstitial lung disease: Status: Chronic Plan: The patient is currently being followed in the ILD clinic at [facility] over concerns for chronic hypersensitivity pneumonitis. Will defer ongoing management and workup to the patient's ILD specialist, accordingly. HPI HPI Comments Details: The patient is a 74-year-old female who presents to the clinic today in referral for the evaluation of obstructive sleep apnea. The patient was recently diagnosed with severe obstructive sleep apnea following a diagnostic polysomnogram completed in October 2024. The patient's overall AHI was noted to be 36 events per hour. In addition to the aforementioned, the patient's is being followed by Dr. Mclain at the ILD clinic at [facility]. She was evaluated by the aforementioned provider in October 2024 over concerns for chronic hypersensitivity pneumonitis. The patient reported that she is scheduled to follow-up in the ILD clinic on February 02. She has not been placed on any form of antifibrotic's or immunosuppressive's, to date. Her most recent pulmonary function studies in our system dating back to August 2024 were normal. The etiology for the patient's hypersensitivity pneumonitis was felt to be chronic exposure to parrots, which were kept as pets for several decades. Following her evaluation in the ILD clinic, the patient reported that she got rid of her birds completely. She is a lifelong non-smoker. Regarding her obstructive sleep apnea, the patient indicated that her presenting symptoms included daytime fatigue and audible snoring when sleeping. She has yet to be started on any formal nocturnal CPAP therapy. Intake Vital Signs 04/11/22 10:46 01/03/25 08:01 Height 5 ft 5 in 5 ft 5 in Weight: 198 lb BMI 32.9 BP 116/77 Blood Pressure Location Rt brachial Position Sitting Respiration 16 Pulse 67 Pulse Source Monitor Temp 97 F L Temperature Source Temporal Artery Pulse Oximetry (%) 97 Oxygen Delivery Method room air Intake Visit Reasons: Sleep problems/INTERSTITIAL LUNG DISEASE Consulting Psychologist Required: No DME Vendor: n/a Accompanied by: Self Is patient in pain?: No Allergies No Known Allergies Allergy (Unverified 01/03/25 09:41) Medications ???Medication ???Instructions ???Recorded ???Confirmed ???Type diltiazem HCl 180 mg capsule,24 180 mg PO QDAY 01/03/25 01/03/25 H istory hr,extended release indapamide 1.25 mg tablet 0.625 - 1.25 mg PO QDAY 01/03/25 0 01/03/25 History telmisartan 20 mg tablet 20 mg PO QDAY 01/03/25 01/03/25 Hi story Have you fallen in the past year?: Yes [facility] Social History (Updated 01/03/25 @ 09:43 by Lisa Hyde LPN) Smoking Status: Former smoker how long ago did patient quit smoking: Only lightly smoked in late teens early 20s Review of Systems Resp Respiratory: Yes as per HPI Exam Const Constitutional: Positive conversant, cooperative, in no acute respiratory distress, well developed, well nourished, good hygiene and obese Head Head: Yes normocephalic and Yes atraumatic Eyes Eye: Positive clear conjunctiva; Negative nystagmus or scleral abnormality Ears Ear: Positive hearing normal and external ears normal Nose Nose: Yes external nose normal Mouth Mouth: Positive oral mucosae normal and posterior oropharynx is adequate; Negative no lesions Neck Neck: Positive normal visual inspection and trachea midline; Negative lymphadenopathy Chest Wall Chest: Positive symmetric chest movement Normal AP diameter. Resp lung sounds: Positive clear to auscultation and good air exchange; Negative wheezes, rhonchi or rales Cardio Cardiac: Positive regular rate, regular rhythm, S1 normal and S2 normal; Negative murmur, rub or gallop GI GI: Positive normal bowel sounds and obese Soft without distention Genitourinary: Positive deferred Musc Musculoskeletal: Positive steady gait Skin Pulmonary Skin Exam: Positive intact; Negative lesion, rash, ulcers or dermal atrophy Extr (more content not included)... Normal [facility] SEND OUT TST 2024 [facility] SCAN TEST RESULTS 1 View results in Scanned Documents link when available Normal [facility] Comment on above: Order Comment: Speci men Type: BLOOD SPECIMEN Ordering Facility: [facility] Address: [address] [place] [address] Performed By: #### 5 1775-5, 47267-9, 90836-9, 51451-7, 61195-1, 93866-3, 02468-5, 76106-7 #### [facility] CLIA [id number] [address] [place] [address] [place] REFERRAL LAB 1 (DROP-DOWN) [facility] Normal [facility] Comment on above: Order Comment: Speci men Type: BLOOD SPECIMEN Ordering Facility: [facility] Address: [address] [place] [address] Performed By: #### 5 1775-5, 13878-7, 17947-8, 34803-5, 29499-4, 89164-5, 20709-8, 58943-5 #### [facility] CLIA [id number] [address] [place] [address] [place] TEST 1 Custom Pulmonary Fibrosis, Multi-Cancer, and Leukemia/MDS panel plus preliminiary evidence genes Normal [facility] Comment on above: Order Comment: Speci men Type: BLOOD SPECIMEN Ordering Facility: [facility] Address: [address] [place] [address] Performed By: #### 5 1775-5, 29303-7, 12964-2, 48395-2, 21308-2, 95513-5, 95605-9, 22206-3 #### [facility] CLIA [id number] [address] [place], [place] [id number] [place] LUNG DIFFUSION CAPACITY (NAYAN O)on 12-11-2024 DLCO (ml/min/mmHg) 15.58 ml/min/mmHg [facility] DLCO LLN (ml/min/mmHg) 14.34 ml/min/mmHg [facility] DLCO PREDICTED (ml/min/mmHg) 19.13 ml/min/mmHg [facility] DLCO ULN (ml/min/mmHg) 25.05 ml/min/mmHg [facility] DLCO/VA (ml/min/mmHg/L) 0.04 ml/min/mmHg/L [facility] DLCO/VA PREDICTED (ml/min/mmHg/L) 0.04 ml/min/mmHg/L [facility] DLCO/VAcor (ml/min/mmHg/L) 0.04 ml/min/mmHg/L [facility] DLCOcor (ml/min/mmHg) 15.3 ml/min/mmHg [facility] DLCOcor PREDICTED (ml/min/mmHg) 19.13 ml/min/mmHg [facility] ERV PREDICTED (L) 0.93 L[facility] FEF25% POST (L/S) 6.26 L/S [facility] FEF25% PRE (L/S) 6.91 L[facility]S [facility] OUO96-36% LLN (L/S) 0.82 L/S [facility] RCO91-90% POST (L/S) 2.7 L/S [facility] VDT91-88% PRE (L/S) 2.58 L/S [facility] RMN48-25% PREDICTED (L/S) 1.82 L/S [facility] FEF75% LLN (L/S) 0.16 L/S [facility] FEF75% POST (L/S) 0.89 L[facility]S [facility] FEF75% PRE (L/S0 0.96 L/S [facility] FEF75% PREDICTED (L/S) 0.44 L/S [facility] FEF75% ULN (L/S) 1.18 L[facility]S [facility] FET POST (S) 5.25 S [facility] FET PRE (S) 6.95 S [facility] FEV1 LLN (L) 1.49 L [facility] FEV1 PRE (L) 2.45 L [facility] FEV1 PREDICTED (L) 2.15 L [facility] FEV1 ULN (L) 2.77 L [facility] FEV1/FVC LLN (%) 65 % [facility] FEV1/FVC POST (%) 87 % [facility] FEV1/FVC PRE (%) 81 % [facility] FEV1/FVC PREDICTED (%) 78 % [facility] FEV1_POST (L) 2.43 L [facility] FVC LLN (L) 1.96 L [facility] FVC POST (L) 2.8 L [facility] FVC PRE (L) 3.01 [facility] FVC PREDICTED (L) 2.78 L [facility] FVC ULN (L) 3.62 L [facility] IC PREDICTED (L) 1.85 L/S [facility] PEF LLN (L/S) 3.83 L/S [facility] PEF POST (L/S) 7.63 L/S [facility] PEF PRE (L/S) 7.66 L/S [facility] PEF ULN (L/S) 7.32 L/S [facility] SVC LLN (L) 1.96 L/S [facility] SVC PREDICTED (L) 2.78 L/S [facility] SVC ULN (L) 3.62 L/S [facility] VA (L) 4.08 L [facility] VA PREDICTED (L) 4.63 L [facility] LUNG DIFFUSION CAPACITY (DLCO) [facility] [place] [address] [place] [address] Test Date: 2024-12-11 Pat Name: RUBI MEJIA Department: Room: Gender: Female Pigment Weigher: : 1950 Requested By: Order Number: [id number] Reading MD: Yoselyn Alvarado MD Interpretive Statements Medications and Allergies were reviewed for possible drug interactions per policy. No contraindications or sensitivities were noted. Meds taken: No inhaled respiratory medications taken before testing. 2 puffs Albuterol (180 mcg) delivered by MDI via holding chamber. HR pre = 76/min, HR post = 75/min. Current ATS/ERS acceptability and repeatability standards for spirometry met. Start of test and EOFE criteria met. Current ATS/ERS acceptability and repeatability standards for DLCO met with 2 acceptable maneuvers. IMPRESSION: Spirometry is normal. Negative bronchodilator response. The diffusion capacity (uncorrected for hemoglobin) is normal. Electronically Signed On 12-11-2024 18:02:48 EDT by Yoselyn Alvarado MD ID: [id number] Name: RUBI MEJIA Race: White Ht: 64.65 in Wt: 203.00 lbs Age: 74 Gender: Female : 1950 Dx: Idiopathic interstitial pulmonary disease_ Smoking Hx: Non-smoker Doctor: BELGICA MCLAIN Test Date: 12/11/2024 Site: Tech: Carin Villegas PRE-BRONCH POST-BRONCH Rommel LLN Pred ULN %Pred ZScore Rommel %Pred %Chg ZScore SPIROMETRY FVC 3.01 1.96 2.78 3.62 108 0.46 2.80 100 -7 0.05 FEV1 2.45 1.49 2.15 2.77 114 0.80 2.43 113 -1 0.74 FEV1/FVC 0.81 0.65 0.78 0.89 103 0.44 0.87 110 6 1.27 FEFMax 7.66 3.83 5.57 7.32 137 1.97 7.63 136 0 1.94 FEF50 3.70 1.49 3.10 4.71 119 0.61 4.65 149 25 1.58 FIF50 2.13 2.56 19 FEF50/FIF50 1.73 90-100 1.82 4 FIVC 2.47 2.35 -4 NXQ64-22 2.58 0.82 1.82 3.25 141 0.94 2.70 148 4 1.07 ExpiredTime 6.95 5.25 -24 TimeToFEFMax 0.06 0.06 -1 CHARLES 0.08 0.07 -8 VolExtrap% 3 3 -1 LUNG DIFFUSION DLCOunc 15.58 14.34 19.13 25.05 81 -1.19 DLCOStdPB 15.30 14.34 19.13 25.05 79 -1.29 VA 4.08 3.70 4.63 5.67 88 -0.95 Kco 3.75 3.12 4.10 5.21 91 -0.56 Comments: Medications and Allergies were reviewed for possible drug interactions per policy. No contraindications or sensitivities were noted. Meds taken: No inhaled respiratory medications taken before testing. 2 puffs Albuterol (180 mcg) delivered by MDI via holding chamber. HR pre = 76/min, HR post = 75/min. Current ATS/ERS acceptability and repeatability standards for spirometry met. Start of test and EOFE criteria met. Current ATS/ERS acceptability and repeatability standards for DLCO met with 2 acceptable maneuvers. FVC_PRE (L) : 3.01 L FVC_POST (L) : 2.80 L FVC_PRED (L) : 2.78 L FVC_LLN (L) : 1.96 L FVC_ULN (L) : 3.62 L FEV1_PRE (L) : 2.45 L FEV1_POST (L) : 2.43 L FEV1_PRED (L) : 2.15 L FEV1_LLN (L) : 1.49 L FEV1_ULN (L) : 2.77 L FEV1/FVC_PRE (%) : 81 % FEV1/FVC_POST (%) : 87 % FEV1/FVC_PRED (%) : 78 % FEV1/FVC_LLN (%) : 65 % ZOD46_AHX (L/S) : 6.91 L/S JID43_PGQR (L/S) : 6.26 L/S WCY16_JUM (L/S) : 0.96 L/S WAL49_SYIB (L/S) : 0.89 L/S LDL72_PSJE (L/S) : 0.44 L/S PDU91_TCQ (L/S) : 0.16 L/S DEK26_OXF (L/S) : 1.18 L/S NQE27-07%_PRE (L/S) : 2.58 L/S HFH42-05%_POST (L/S) : 2.70 L/S JYN86-50%_PRED (L/S) : 1.82 L/S GUP09-54%_LLN (L/S) : 0.82 L/S PEF_PRE (L/S) : 7.66 L/S PEF_POST (L/S) : 7.63 L/S PEFMAX_LLN (L/S) : 3.83 L/S PEFMAX_ULN (L/S) : 7.32 L/S SVC_PRED (L) : 2.78 L/S SVC_LLN (L) : 1.96 L/S SVC_ULN (L/S) : 3.62 L/S IC_PRED (L) : 1.85 L/S ERV_PREDICTED (L) : 0.93 L/S DLCO (ML/MIN/MMHG) : 15.58 ml/min/mmHg DLCO_PRED (ML/MIN/MMHG) : 19.13 ml/min/mmHg DLCO_LLN(ML/MIN/MMHG) : 14.34 ml/min/mmHg DLCO_ULN (ML/MIN/MMHG) : 25.05 ml/min/mmHg FET_PRE (S) : 6.95 S FET_POST (S) : 5.25 S VA (L) : 4.08 L VA_PRD (L) : 4.63 L DLCO/VA (ML/MIN/MMHG/L) : 0.04 ml/min/mmHg/L DLCO_VA_PRED (L) : 0.04 ml/min/mmHg/L DLCOCOR (ML/MIN/MMHG) : 15.30 ml/min/mmHg DLCOCOR_PRED (ML/MIN/MMHG) : 19.13 ml/min/mmHg DLCO/VACOR (ML/MIN/MMHG/L) : 0.04 ml/min/mmHg/L Normal [facility] No Panel Informationon 12-11 [facility] [place] [address] [place] [address] Test Date: 2024-12-11 Pat Name: RUBI MEJIA Department: Room: Gender: Female Pigment Weigher: : 1950 Requested By: Order Number: [id number] Reading MD: Yoselyn Alvarado MD Interpretive Statements Medications and Allergies were reviewed for possible drug interactions per policy. No contraindications or sensitivities were noted. Meds taken: No inhaled respiratory medications taken before testing. 2 puffs Albuterol (180 mcg) delivered by MDI via holding chamber. HR pre = 76/min, HR post = 75/min. Current ATS/ERS acceptability and repeatability standards for spirometry met. Start of test and EOFE criteria met. Current ATS/ERS acceptability and repeatability standards for DLCO met with 2 acceptable maneuvers. IMPRESSION: Spirometry is normal. Negative bronchodilator response. The diffusion capacity (uncorrected for hemoglobin) is normal. Electronically Signed On 12-11-2024 18:02:48 EDT by Yoselyn Alvarado MD ID: [id number] Name: RUBI MEJIA Race: White Ht: 64.65 in Wt: 203.00 lbs Age: 74 Gender: Female : 1950 Dx: Idiopathic interstitial pulmonary disease_ Smoking Hx: Non-smoker Doctor: BELGICA MCLAIN Test Date: 12/11/2024 Site: Tech: Carin Villegas PRE-BRONCH POST-BRONCH Rommel LLN Pred ULN %Pred ZScore Rommel %Pred %Chg ZScore SPIROMETRY FVC 3.01 1.96 2.78 3.62 108 0.46 2.80 100 -7 0.05 FEV1 2.45 1.49 2.15 2.77 114 0.80 2.43 113 -1 0.74 FEV1/FVC 0.81 0.65 0.78 0.89 103 0.44 0.87 110 6 1.27 FEFMax 7.66 3.83 5.57 7.32 137 1.97 7.63 136 0 1.94 FEF50 3.70 1.49 3.10 4.71 119 0.61 4.65 149 25 1.58 FIF50 2.13 2.56 19 FEF50/FIF50 1.73 90-100 1.82 4 FIVC 2.47 2.35 -4 KJF49-81 2.58 0.82 1.82 3.25 141 0.94 2.70 148 4 1.07 ExpiredTime 6.95 5.25 -24 TimeToFEFMax 0.06 0.06 -1 CHARLES 0.08 0.07 -8 VolExtrap% 3 3 -1 LUNG DIFFUSION DLCOunc 15.58 14.34 19.13 25.05 81 -1.19 DLCOStdPB 15.30 14.34 19.13 25.05 79 -1.29 VA 4.08 3.70 4.63 5.67 88 -0.95 Kco 3.75 3.12 4.10 5.21 91 -0.56 Comments: Medications and Allergies were reviewed for possible drug interactions per policy. No contraindications or sensitivities were noted. Meds taken: No inhaled respiratory medications taken before testing. 2 puffs Albuterol (180 mcg) delivered by MDI via holding chamber. HR pre = 76/min, HR post = 75/min. Current ATS/ERS acceptability and repeatability standards for spirometry met. Start of test and EOFE criteria met. Current ATS/ERS acceptability and repeatability standards for DLCO met with 2 acceptable maneuvers. PULMONARY FUNCTION LAB [facility] SPIROMETRY - BASELINE AND PO ST DILATORon 12-11-2024 SPIROMETRY - BASELINE AND POST DILATOR [facility] [place] [address] [place] [address] Test Date: 2024-12-11 Pat Name: RUBI MEJIA Department: Room: Gender: Female Pigment Weigher: : 1950 Requested By: Order Number: [id number] Reading MD: Yoselyn Alvarado MD Interpretive Statements Medications and Allergies were reviewed for possible drug interactions per policy. No contraindications or sensitivities were noted. Meds taken: No inhaled respiratory medications taken before testing. 2 puffs Albuterol (180 mcg) delivered by MDI via holding chamber. HR pre = 76/min, HR post = 75/min. Current ATS/ERS acceptability and repeatability standards for spirometry met. Start of test and EOFE criteria met. Current ATS/ERS acceptability and repeatability standards for DLCO met with 2 acceptable maneuvers. IMPRESSION: Spirometry is normal. Negative bronchodilator response. The diffusion capacity (uncorrected for hemoglobin) is normal. Electronically Signed On 12-11-2024 18:02:48 EDT by Yoselyn Alvarado MD ID: [id number] Name: RUBI MEJIA Race: White Ht: 64.65 in Wt: 203.00 lbs Age: 74 Gender: Female : 1950 Dx: Idiopathic interstitial pulmonary disease_ Smoking Hx: Non-smoker Doctor: BELGICA MCLAIN Test Date: 12/11/2024 Site: [facility] Tech: Carin Villegas PRE-BRONCH POST-BRONCH Rommel LLN Pred ULN %Pred ZScore Rommel %Pred %Chg ZScore SPIROMETRY FVC 3.01 1.96 2.78 3.62 108 0.46 2.80 100 -7 0.05 FEV1 2.45 1.49 2.15 2.77 114 0.80 2.43 113 -1 0.74 FEV1/FVC 0.81 0.65 0.78 0.89 103 0.44 0.87 110 6 1.27 FEFMax 7.66 3.83 5.57 7.32 137 1.97 7.63 136 0 1.94 FEF50 3.70 1.49 3.10 4.71 119 0.61 4.65 149 25 1.58 FIF50 2.13 2.56 19 FEF50/FIF50 1.73 90-100 1.82 4 FIVC 2.47 2.35 -4 TFI53-92 2.58 0.82 1.82 3.25 141 0.94 2.70 148 4 1.07 ExpiredTime 6.95 5.25 -24 TimeToFEFMax 0.06 0.06 -1 CHARLES 0.08 0.07 -8 VolExtrap% 3 3 -1 LUNG DIFFUSION DLCOunc 15.58 14.34 19.13 25.05 81 -1.19 DLCOStdPB 15.30 14.34 19.13 25.05 79 -1.29 VA 4.08 3.70 4.63 5.67 88 -0.95 Kco 3.75 3.12 4.10 5.21 91 -0.56 Comments: Medications and Allergies were reviewed for possible drug interactions per policy. No contraindications or sensitivities were noted. Meds taken: No inhaled respiratory medications taken before testing. 2 puffs Albuterol (180 mcg) delivered by MDI via holding chamber. HR pre = 76/min, HR post = 75/min. Current ATS/ERS acceptability and repeatability standards for spirometry met. Start of test and EOFE criteria met. Current ATS/ERS acceptability and repeatability standards for DLCO met with [address] [facility] CNOVon 10-24-2024 CNOV Office Visit ([facility] ) RUBI MEJIA ([id number]) 1950 F Date Time Provider Department 10/24/24 1:00 PM BELGICA MCLAIN [facility] During your visit today, we recorded the following information about you: Temperature Pulse Respiration Blood pressure 97 degrees 76/minute 18/minute 113/76 Weight Height 92.1 kg 1.651 m Belgica Mclain MD 10/25/2024 7:31 AM Signed Pulmonary Medicine NEW INTERSTITIAL LUNG DISEASE OUTPATIENT CONSULTATION Referring Physician: Nathalia Barraza APRN.* Date of service: 10/24/24 History of Present Illness: 74F here for ILD evaluation. Pmxh fo GERD, HTN, SVT. Chronic cough of several yrs - slightly progressive. Exposures to parrots - >10yrs, 20 birds at least, all lived indoors. Open cage - does the cleaning. Currently has 2 pet parrots living. No down, hot tubs, jacuzzi, chronic Abx, hx of chemo, radiation. 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 Father of ILD, brother w/ ILD. Both diagnosed in their 60s. Patient denies hx of liver fibrosis or hematological history. Patient denies dyspnea/wheeze. Trelegy does not help. Being treated for GERD. No CTD symptoms. CT chest with CHF pattern. CTD and HP labs negative. FVC and DL normal mMRC: Date mMRC 0 Review of Systems: All other systems reviewed and are negative (except as per HPI). Past Medical AND Surgical History: PAST MEDICAL HISTORY Diagnosis Date Acid reflux Questionable Environmental allergies Hypertension Palpitations Paroxysmal supraventricular tachycardia (HCC) PAST SURGICAL HISTORY Procedure Laterality Date ANKLE SURGERY HX Right 01/24/2015 x2 COLONOSCOPY FLX DX W/COLLJ SPEC WHEN PFRMD 02/27/2019 Colonoscopy PAST SURGICAL HISTORY OF 1986 ectopic Social History: Smoking history: reports that she has never smoked. She has never used smokeless tobacco. Drug Use: No Family History: FAMILY HISTORY Problem Relation Age of Onset other (Idiopathic Pulmonary Fibrosis) Father Breast Cancer Mother Cervical Cancer Mother other (Pancreatic Cancer) Mother other (Heart Attack) Brother Coronary Artery Disease Brother CABG other (CHF) Brother Open Heart Surgery other (A-Fib) Brother had ablation to treat Medications: Current Outpatient Medications Medication Sig dilTIAZem CR (TIAZAC, TAZTIA XT) 180 mg 24 hr capsule Take 1 capsule by mouth every afternoon. Telmisartan 20 mg tablet Take 20 mg by mouth once daily. indapamide (LOZOL) 1.25 mg tablet Take 1.25 mg by mouth once daily. MULTIVITAMIN ORAL Take by mouth once daily. No current facility-administered medications for this visit. Physical Examination: Vital Signs: Blood pressure 113/76, pulse 76, temperature 36.1 ?C (97 ?F), temperature source Temporal, resp. rate 18, height 165.1 cm (5' 5), weight 92.1 kg (203 lb 0.7 oz), SpO2 96%. General: The patient appears in no acute distress. Alert and oriented to person, place, time, and situation. Calm and cooperative with physical exam. HEENT: Normocephalic, normal conjunctiva, moist oral mucosa, PERRL, nares patent, good dentition, appropriate rise and fall of uvula and soft palate Neck: TM No JVD Chest: faint crackles at the bases Cardiac: Regular rhythm, normal rate, S1S2 auscultated Abdomen: Soft, non-tender, non-distended, positive bowel sounds in all four quadrants Skin: No rashes, open wounds, or bruising. Warm, dry, well-perfused. Extremities: no edema, no cyanosis Neuro: Grossly moving all 4 limbs Psych: Mood stable. Review of Data: Reviewed in EMR and interpreted by myself CT: Aug 2024 - reticulation, worse at the bases vs apex with GGO and air trapping. No HC/BE 6MWT: Date Distance Walked (m) Pred. Distance (m) % Pred. Notes Exercise Desaturations Study: Date Lowest SpO2 at rest Lowest SpO2 on exertion O2 dose needed Pulmonary Function Testing: Date FVC % Pred. FEV1 % Pred. FEV1/FVC TLC % Pred. DL % Pred. 10/24/24 3.06 104 117 87 15.9 82 PSG: Pathology AND Bronchoscopy Results: EKG: ECHO: LV Angiography: Right heart catheterization: Date RA (S/D/M) RV (S/D/M) PA (S/D/M) PCWP (M) LVEDP CO/CI ([place]ak) PVR Vasoreactity FiO2 testing Assessment and Recommendation: (J84.9) ILD (interstitial lung disease) (HCC) (primary encounter diagnosis) (R05.3) Chronic cough (K21.9) Gastroesophageal reflux disease without esophagitis (Z83.6) Family history of pulmonary fibrosis (L67.1) Whitfield hair 74F here for ILD evaluation. Pmxh fo GERD, HTN, SVT. Chronic cough of several yrs - slightly progressive. Exposures to parrots - >10yrs, 20 birds at least, all lived indoors. Open cage - does the cleaning. Currently has 2 pet parrots living. No down, hot tubs, jacuzzi, chronic Abx, hx of chemo, radiation. 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 Normal [facility] 10-05-2024 [facility] Telephone ([facility]) RUBI MEJIA ([id number]) 1950 F Date Time Provider Department 10/05/24 BELGICA MCLAIN [facility] During your visit today, we recorded the following information about you: Carlos Ambrocio, RN 10/05/2024 12:12 PM Signed Pt called in stating she is requesting Aug 2024 PFTs from [place] [facility] to be faxed over for upcoming appointment. Allergies As of Date: 10/05/2024 (No Known Allergies) Date Reviewed: 09/05/2024 Reviewed by: Yoselyn Alvarado MD - Fully Assessed Reason for Visit: Request Outside Medical Records [[id number]] Cmt: PFTs Prescriptions as of 10/05/2024 - dilTIAZem CR (TIAZAC, TAZTIA XT) 180 mg 24 hr capsule Take 1 capsule by mouth every afternoon. - Telmisartan 20 mg tablet Take 20 mg by mouth once daily. - indapamide (LOZOL) 1.25 mg tablet Take 1.25 mg by mouth once daily. - MULTIVITAMIN ORAL Take by mouth once daily. Problem List As Of Date 10/05/2024 Noted Resolved Fracture of ankle, trimalleolar, right, closed *04/24/2015 NEGATIVE MEDICAL HISTORY 02/25/2019 Chronic cough [R05.3] 11/08/2017 Encounter Status:Closed by CARLOS AMBROCIO on 10/05/24 [facility] [place] 10-03-2024 JEFERSONN Telephone (PULMMN) RUBI MEJIA ([id number]) 1950 F Date Time Provider Department 10/03/24 KLARISSA PINEDA During your visit today, we recorded the following information about you: Klarissa Pineda, RN 10/03/2024 9:29 AM Signed Interstitial Lung Disease Referral Intake Patient: Rubi Mejia Date: October 03, 2024 9:27 AM Schedulers: --Please schedule patient with any ILD provider ILD Dr. Toya Joiner: [facility]. Dr. Nikunj Cherry: [facility] AND [place] (2023). Dr. Facundo Gore: [facility] AND [facility]. Dr. Carolyne Rueda: [facility] AND [place]. Dr. Karolina Mercedes: [facility]. ILD/Sarcoid Dr. Belgica Mclain: [facility] AND [place]. Dr. Fazal Sy: [facility] AND [facility] ([place]). Dr. Laurent Dennis: [facility] and [facility] Dr. Thiago Gonzalez: [facility], [facility], AND [place]. Dr. David Holbrook: [facility] AND [place]. Dr. Rosemary Mcdonough: [facility], [facility] ([facility]) AND [facility] ([facility]). Sarcoid/ILD Pulmonary [place]: [facility] ( afternoon). Dr. Karolina Mercedes: [facility]. AND [place]. ILD/Sarcoid/Beryllium/ Occupational Dr. Aliec Long: [facility], [place], [place], AND [place]. Testing needed: Spirometry w/ bronchodilator if obstructed and DLCO. MyChart: Already set up. *Remind patient to bring imaging disc in hand. Consult information: Referred by: Dr. Carlos Bhat [facility] Diagnosis: ILD- likely IPF CT chest: yes, imported Most recent date: 08/2024 Location performed: [facility] Biopsy: None Type: Date: Location performed: Current or past treatment (for the ILD diagnosis): None Have you ever been told that you have scleroderma? No Have you been told by your physician that your lung disease is due to an occupational or work exposure? No Have you ever been deployed? No *Please remember to give the authorization for release of medical records to your doctor(s), and also obtain your CT(s) on a disc from the radiology department and hand carry this to your appointment. Klarissa Pineda RN Allergies As of Date: 10/03/2024 (No Known Allergies) Date Reviewed: 09/05/2024 Reviewed by: Yoselyn Alvarado MD - Fully Assessed Reason for Visit: New ILD [Other] Primary Visit Diagnosis:ILD (interstitial lung disease) (HCC) [J84.9] Order(s):SPIROMETRY WITH DILATOR IF OBSTRUCTED [6497694] Order #: [id number]: 1 FUTURE LUNG DIFFUSION CAPACITY (DLCO) [0294152] Order #: [id number]: 1 FUTURE Prescriptions as of 10/03/2024 - dilTIAZem CR (TIAZAC, TAZTIA XT) 180 mg 24 hr capsule Take 1 capsule by mouth every afternoon. - Telmisartan 20 mg tablet Take 20 mg by mouth once daily. - indapamide (LOZOL) 1.25 mg tablet Take 1.25 mg by mouth once daily. - MULTIVITAMIN ORAL Take by mouth once daily. Problem List As Of Date 10/03/2024 Noted Resolved Fracture of ankle, trimalleolar, right, closed *04/24/2015 NEGATIVE MEDICAL HISTORY 02/25/2019 Chronic cough [R05.3] 11/08/2017 Encounter Status:Closed by KLARISSA PINEDA on 10/03/24 [place] 09-27-2024 CNPN Telephone (PULMWS) RUBI MEJIA ([id number]) 1950 F Date Time Provider Department 09/27/24 YOSELYN ALVARADO PULMWS During your visit today, we recorded the following information about you: Allergies As of Date: 09/27/2024 (No Known Allergies) Date Reviewed: 09/05/2024 Reviewed by: Yoselyn Alvarado MD - Fully Assessed Reason for Visit: Orders [[id number]] Prescriptions as of 09/28/2024 - dilTIAZem CR (TIAZAC, TAZTIA XT) 180 mg 24 hr capsule Take 1 capsule by mouth every afternoon. - Telmisartan 20 mg tablet Take 20 mg by mouth once daily. - indapamide (LOZOL) 1.25 mg tablet Take 1.25 mg by mouth once daily. - MULTIVITAMIN ORAL Take by mouth once daily. Problem List As Of Date 09/27/2024 Noted Resolved Fracture of ankle, trimalleolar, right, closed *04/24/2015 NEGATIVE MEDICAL HISTORY 02/25/2019 Chronic cough [R05.3] 11/08/2017 Encounter Status:Closed by YOSELYN ALVARADO on 09/27/24 [facility] Echo Completeon 09-13-2024 Echo Complete [facility] [address] [place] [address] Echo Complete 09/13/24 1030 MR#: [id number] Acct: [id number] Name: RUBI MEJIA Rep #: [id number] : 1950 73 From: González Cole MD Attending Dr: Dr. Jayme Velazquez MD Status: REG CLI Ordering Dr: Jayme Velazquez MD Date: 09/13/24 Location: [facility] Sex: F C Admitted: Reason For Study Reason For Study: Cardiomegaly Procedure This was a 2D Doppler, Color Flow transthoracic echocardiogram. Exam performed in department. Left Ventricle Normal size and thickness. Left ventricular systolic function is normal. The left ventricular ejection fraction is 65 %. Normal diastology for age. Right Ventricle Normal right ventricle. Atria The left and right atria are normal. Cannot exclude tiny PFO. Mitral Valve Trivial mitral valve insufficiency. Tricuspid Valve Moderate (2+) tricuspid valve insufficiency. Right ventricular systolic pressure estimated to be 48 mmHg. Aortic Valve Trisinus/trileaflet aortic valve. Pulmonic Valve Mild (1+) pulmonic valve insufficiency. Great Vessels Normal sized aortic root. Pericardium/Pleural No pericardial effusion. MMode/2D Measurements Calculations LVIDd: 4.2 cm IVSd: 1.1 cm Ao root diam: 3.6 cm LVIDs: 2.6 cm LVPWd: 1.1 cm RVDd: 4.2 cm FS: 37.9 % LAV(MOD-bp): 50.1 ml LVAd ap4: 23.4 cm2 SV(MOD-sp4): 36.5 ml LAV(MOD-bp) Indexed: 25.3 ml/m2 LVLd ap4: 7.7 cm SI(MOD-sp4): 18.4 ml/m2 LAV(MOD-sp2): 55.9 ml EDV(MOD-sp4): 57.8 ml LAV(MOD-sp4): 44.3 ml EDV(sp4-el): 60.2 ml LVAs ap4: 12.9 cm2 LVLs ap4: 6.8 cm ESV(MOD-sp4): 21.3 ml ESV(sp4-el): 21.0 ml EF(MOD-sp4): 63.1 % EF(sp4-el): 65.2 % SV(sp4-el): 39.3 ml LA A4 area: 18.2 cm2 LA dimension(2D): 3.4 cm RA A4 area: 19.6 cm2 Time Measurements MV dec time: 0.31 sec Doppler Measurements Calculations MV E max david: 68.2 cm/sec Lat Peak E' David: 11.1 cm/sec Med Peak E' David: 7.2 cm/sec MV A max david: 95.8 cm/sec E/E' lat: 6.2 E/E' med: 9.5 MV E/A: 0.71 MV V2 max: 120.8 cm/sec MV P1/2t max david: 83.0 cm/sec Ao V2 max: 137.9 cm/sec MV max P.8 mmHg MV P1/2t: 107.9 msec Ao max P.6 mmHg MV V2 mean: 60.9 cm/sec Ao V2 mean: 95.3 cm/sec MV mean P.7 mmHg MV dec slope: 225.5 cm/sec2 Ao mean P.1 mmHg MV V2 VTI: 30.9 cm MVA(P1/2t): 2.0 cm2 Ao V2 VTI: 30.5 cm AV (velocity ratio): 0.93 LV V1 max: 134.4 cm/sec PA V2 max: 95.3 cm/sec LV V1 max P.3 mmHg PI dec slope: 172.0 cm/sec2 LV V1 mean P.3 mmHg LV V1 mean: 99.2 cm/sec LV V1 VTI: 28.2 cm TR max david: 287.0 cm/sec TR max P.0 mmHg ECHO/Echo Complete Interpretation Summary The left ventricular ejection fraction is 65 %. Cannot exclude tiny PFO. Moderate (2+) tricuspid valve insufficiency. Right ventricular systolic pressure estimated to be 48 mmHg. Mild (1+) pulmonic valve insufficiency. Ordering Physician: Jayme Velazquez Referring Physician: Jayme Velazquez Performed By: Marcin Leonard RCS 09/13/24 1410 Date González Cole MD CC: Dr. Jayme Velazquez MD; Dr. Cris Rizzo MD Date Dictated: 09/13/24 1030 Date Transcribed: 09/13/24 141 Party Planner: Signed Normal [facility] Echocardiogram study reportO rdered By: González Cole on 09-13-2024 Study report [facility] [address] [place] [address] Echo Complete 09/13/24 1030 MR#: [id number] Acct: [id number] Name: RUBI MEJIA Rep #:[id number] : 1950 73 From: González Cole MD Attending Dr: Dr. Jayme Velazquez MD Status: REG CLI Ordering Dr: Jayme Velazquez MD Sam e: 09/13/24 Location: [facility] Sex: F C Admitted: Reason For Study Reason For Study: Cardiomegaly Procedure This was a 2D Doppler, Color Flow transthoracic echocardiogram. Exam performed in department. Left Ventricle Normal size and thickness. Left ventricular systolic function is normal. The left ventricular ejection fraction is 65 %. Normal diastology for age. Right Ventricle Normal right ventricle. Atria The left and right atria are normal. Cannot exclude tiny PFO. Mitral Valve Trivial mitral valve insufficiency. Tricuspid Valve Moderate (2+) tricuspid valve insufficiency. Right ventricular systolic pressureestimated to be 48 mmHg. Aortic Valve Trisinus/trileaflet aortic valve. Pulmonic Valve Mild (1+) pulmonic valve insufficiency. Great Vessels Normal sized aortic root. Pericardium/Pleural No pericardial effusion. MMode/2D Measurements & Calculations LVIDd: 4.2 cm IVSd: 1.1 cm Ao root diam: 3.6 cm LVIDs: 2.6 cm LVPWd: 1.1 cm RVDd: 4.2 cm FS: 37.9 % LAV(MOD-bp): 50.1 ml LVAd ap4: 23.4 cm2 SV(MOD-sp4): 36.5 ml LAV(MOD-bp) Indexed: 25.3 ml/m2 LVLd ap4: 7.7 cm SI(MOD-sp4): 18.4 ml/m2 LAV(MOD-sp2): 55.9 ml EDV(MOD-sp4): 57.8 ml LAV(MOD-sp4): 44.3 ml EDV(sp4-el): 60.2 ml LVAs ap4: 12.9 cm2 LVLs ap4: 6.8 cm ESV(MOD-sp4): 21.3 ml ESV(sp4-el): 21.0 ml EF(MOD-sp4): 63.1 % EF(sp4-el): 65.2 % SV(sp4-el): 39.3 ml LA A4 area: 18.2 cm2 LA dimension(2D): 3.4 cm RA A4 area: 19.6 cm2 Time Measurements MV dec time: 0.31 sec Doppler Measurements & Calculations MV E max david: 68.2 cm/sec Lat Peak E' David: 11.1 cm/sec Med Peak E' David: 7.2 cm/sec MV A max david: 95.8 cm/sec E/E' lat: 6.2 E/E' med: 9.5 MV E/A: 0.71 MV V2 max: 120.8 cm/sec MV P1/2t max david: 83.0 cm/sec Ao V2 max: 137.9 cm/sec MV max P.8 mmHg MV P1/2t: 107.9 msec Ao max P.6 mmHg MV V2 mean: 60.9 cm/sec Ao V2 mean: 95.3 cm/sec MV mean P.7 mmHg MV dec slope: 225.5 cm/sec2 Ao mean P.1 mmHg MV V2 VTI: 30.9 cm MVA(P1/2t): 2.0 cm2 Ao V2 VTI: 30.5 cm AV (velocity ratio): 0.93 LV V1 max: 134.4 cm/sec PA V2 max: 95.3 cm/sec LV V1 max P.3 mmHg PI dec slope: 172.0 cm/sec2 LV V1 mean P.3 mmHg LV V1 mean: 99.2 cm/sec LV V1 VTI: 28.2 cm TR max david: 287.0 cm/sec TR max P.0 mmHg ECHO/Echo Complete Interpretation Summary The left ventricular ejection fraction is 65 %. Cannot exclude tiny PFO. Moderate (2+) tricuspid valve insufficiency. Right ventricular systolic pressure estimated to be 48 mmHg. Mild (1+) pulmonic valve insufficiency. Ordering Physician: Jayme Velazquez Referring Physician: Jayme Velazquez Performed By: Marcin Leonard RCS 09/13/24 1410 Date _ González Cole MD CC: Dr. Jayme Velazquez MD; Dr. Cris Rizzo MD ~ Date Dictated: 09/13/24 1030 Date Transcribed: 09/13/24 141 Party Planner: Signed [facility] Work Phone: LEWIS BY IFA SCREENon 09-05-19 Nuclear Ab Ql (S) Negative Normal Negative [facility] Comment on above: Order Comment: Speci men Type: BLOOD SPECIMEN Ordering Facility: [facility] Address: [address] [place] [address] Result Comment: Anti -nuclear antibody test is used as an aid in diagnosis of systemic autoimmune diseases. Where positive and clinically warranted, follow-up using disease-specific testing is recommended. Low positive titers are not uncommon with advanced age, certain chronic infections, and malignancies among others. Test methodology: Indirect fluorescence immunoassay (IFA) using HEp-2 cells. Performed By: #### 5 1775-5, 57171-9, 84057-3, 57143-0, 21848-5, 06121-8, 92717-6, 71783-4 #### [facility] CLIA [id number] [address] [place] [address] [place] ANTI NEUTRO CYTO ABon 2024 INTERPRETATION (ANCA) Equivocal staining seen on the ethanol (indirect immunofluorescence screen) slide but negative results on follow up confirmatory testing. Anti-nuclear antibody test may be considered. Clinical correlation is required. Normal [facility] Comment on above: Order Comment: Speci men Type: BLOOD SPECIMEN Ordering Facility: [facility] Address: [address] [place] [address] Performed By: #### 5 1775-5, 49844-3, 12757-2, 80693-1, 12831-0, 81430-5, 39605-7, 54875-1 #### [facility] CLIA [id number] [address] [place] [address] [place] Myeloperoxidase Ab Qn (S) <0.2 Normal <1.0 [facility] Comment on above: Order Comment: Speci men Type: BLOOD SPECIMEN Ordering Facility: [facility] Address: [address] [place] [address] Performed By: #### 5 1775-5, 98346-8, 74137-2, 61062-3, 93996-5, 47480-7, 18046-5, 43649-9 #### [facility] CLIA [id number] [address] [place] [address] [place] Neutrophil cytoplasmic Ab.classic IF Ql (S) Negative Normal Negative [facility] Comment on above: Order Comment: Speci men Type: BLOOD SPECIMEN Ordering Facility: [facility] Address: [address] [place] [address] Performed By: #### 5 1775-5, 77885-8, 67764-0, 35466-6, 76771-8, 70656-8, 79370-6, 18905-9 #### [facility] CLIA [id number] [address] [place] [address] [place] Neutrophil cytoplasmic Ab.perinuclear IF Ql (S) Negative Normal Negative [facility] Comment on above: Order Comment: Speci men Type: BLOOD SPECIMEN Ordering Facility: [facility] Address: [address] [place] [address] Performed By: #### 5 1775-5, 51318-4, 44481-2, 62129-1, 77267-9, 65033-9, 81181-2, 96912-0 #### [facility] CLIA [id number] [address] [place] [address] [place] Proteinase 3 Ab Qn (S) <0.2 Normal <1.0 [facility] Comment on above: Order Comment: Speci men Type: BLOOD SPECIMEN Ordering Facility: [facility] Address: [address] [place] [address] Performed By: #### 5 1775-5, 71139-0, 55857-4, 16153-9, 04838-8, 39848-7, 99092-9, 76903-2 #### [facility] CLIA [id number] [address] [place] [address] OF LILY STAFF REVIEW (ANCA) Reviewed by Tavon Love, Ph.D D(CLARISSA) Normal [facility] Comment on above: Order Comment: Speci men Type: BLOOD SPECIMEN Ordering Facility: [facility] Address: [address] [place] [address] Performed By: #### 5 1775-5, 95348-2, 20648-0, 63630-3, 34378-8, 02814-3, 32026-1, 17195-0 #### [facility] CLIA [id number] [address] [place] [address] STATES OF [facility] CNOVon 09-05-2024 CNOV Office Visit (PULMWS ) RUBI MEJIA ([id number]) 1950 F Date Time Provider Department 09/05/24 12:45 PM YOSELYN ALVARADO PULMWS During your visit today, we recorded the following information about you: Pulse Blood pressure Weight 78/minute 117/73 91.9 kg Yoselyn Alvarado MD 09/05/2024 8:05 PM Signed . Respiratory [place] Note Patient name: Rubi Mejia PCP: Cris Rizzo MD Referring Physician: Same Consultation requested by Dr. Rizzo for an opinion regarding chronic cough. My final recommendations will be communicated back to the requesting physician by way of shared Medical record or letter to requesting physician via US mail. CC: Cough HPI: Rubi Mejia 73 year old female never smoker with PMH significant for allergies, HTN, PAT being seen for evaluation of chronic cough. She has had a cough on and off for many years. Cough is mainly dry, more prominent in morning, occasionally productive of clear phlegm. No nocturnal awakenings. Will have coughing spells without an obvious trigger. No significant SOB, wheezing. She does not remember any antecedent URI. She had COVID 2 years ago but this did not necessarily worsen her cough. She has been treated for allergies and possible GERD without relief. She was briefly tried on Trelegy but this made her feel worse. PFTs normal. No symptoms to suggest autoimmune disorder, no prior use of medications known to cause fibrosis. However, she has two parrots. Has family history of pulmonary fibrosis including father, paternal aunt and cousin. DATA: PFT 08/16/2024 FVC 3.06 L 104% FEV1 0.65 L 117% FEV1/FVC 87% FEF 25-75% 3.55 L 100% No change with bronchodilators TLC 4.65 L 87% RV 1.51 L 72% DLCO 15.99 82% Imaging / Diagnostic Studies: Chest [facility] 08/15/2024: Chest CT shows peripheral reticulations and mosaic attentuation PAST MEDICAL HISTORY Diagnosis Date Acid reflux Questionable Environmental allergies Hypertension Palpitations ALLERGIES No Known Allergies dilTIAZem CR (TIAZAC, TAZTIA XT) 180 mg 24 hr capsule Take 1 capsule by mouth every afternoon. Telmisartan 20 mg tablet Take 20 mg by mouth once daily. indapamide (LOZOL) 1.25 mg tablet Take 1.25 mg by mouth once daily. MULTIVITAMIN ORAL Take by mouth once daily. 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 FAMILY HISTORY Problem Relation Age of Onset other (Idiopathic Pulmonary Fibrosis) Father Breast Cancer Mother Cervical Cancer Mother other (Pancreatic Cancer) Mother other (Heart Attack) Brother Coronary Artery Disease Brother CABG other (CHF) Brother Open Heart Surgery other (A-Fib) Brother had ablation to treat PAST SURGICAL HISTORY Procedure Laterality Date ANKLE SURGERY HX Right 01/24/2015 x2 COLONOSCOPY FLX DX W/COLLJ SPEC WHEN PFRMD 02/27/2019 Colonoscopy PAST SURGICAL HISTORY OF 1986 ectopic PMH, Social history, family history and surgical history reviewed and updated in EMR REVIEW OF SYSTEMS: CONSTITUTIONAL: No fevers, chills, nightsweats, unintended weight loss HEENT: Denies current nasal congestion/sinus symptoms, allergy problems. EYES: Wears glases CARDIOVASCULAR: No chest pain, dyspnea, palpitations, orthopnea. Some edema PULM: See HPI GI: No dysphagia/odynophagia, problematic reflux NEURO: No balance problems, peripheral weakness/paresthesias or numbness of concern. MUSC-SKEL: Hand arthritis INTEGUMENTARY: No skin changes PHYSICAL EXAMINATION: BP 117/73 Pulse 78 Wt 202 lb 9.6 oz (91.9kg) SpO2 96% General Appearance: Obese female, NAD. Skin: Skin color, texture, turgor normal, no suspicious rashes or lesions. Head: Normocephalic, no masses, lesions, tenderness or abnormalities. Eyes: Sclera, conjunctiva normal. Oropharynx: No oral lesions. Neck: No masses or adenopathy. Lungs: Not labored, no wheezes or crackles. Heart: RRR, no murmur. Extremities: Mild edema, no clubbing. Assessment/Plan: ILD -No previous imaging for comparison the assess time line -Most concerned about possible chronic HP -HP panel, autoimmune serologies -May need ILD consultation/assessmen t for lung biopsy -Has strong family history of pulmonary fibrosis which raises the question on familial IPF but her age is somewhat atypical for onset Chronic cough -Likely due to ILD -Allergic component raises question of cough asthma. Hold on methacholine challenge for now I spent a total of 76 minutes on the date of the service which included preparing to see the patient, [id number] patient care, completing clinical documentation, performing an appropriate physical exam, obtaining and/or reviewing separately obtained history, counseling and e (more content not included)... Normal [facility] Centromere Ab IF Ql (S)on Centromere Ab Qn (S) <0.2 Normal <1.0 [facility] Comment on above: Order Comment: Speci jean Type: BLOOD SPECIMEN Ordering Facility: [facility] Address: [address] [place] [address] Result Comment: Anti -centromere antibody is used as in aid in diagnosis of systemic sclerosis. Clinical correlation is required. Test Methodology: Multiplex flow immunoassay. Performed By: #### 5 1775-5, 23557-9, 97554-2, 09929-5, 76089-3, 49865-2, 85847-9, 48713-3 #### [facility] CLIA [id number] [address] [place], [place] [address] [address] [place] CENTROMERE AB QUAL Negative Normal Negative [facility] Comment on above: Order Comment: Lacy pena Type: BLOOD SPECIMEN Ordering Facility: [facility] Address: [address] [place] [address] Performed By: #### 5 1775-5, 72188-6, 32550-3, 71621-9, 87815-4, 38948-5, 49561-8, 75907-2 #### [facility] CLIA [id number] [address] [place] [address] [place] Chromatin Ab Qnon 09-05-2024 CHROMATIN AB QUAL Negative Normal Negative [facility] Comment on above: Order Comment: Speci men Type: BLOOD SPECIMEN Ordering Facility: [facility] Address: [address] [place] [address] Performed By: #### 5 1775-5, 97644-1, 84137-3, 54251-0, 04336-5, 93046-9, 18079-7, 69700-4 #### [facility] CLIA [id number] [address] [place] [address] [place] Chromatin Ab SerPl-aCncon Chromatin Ab Qn <0.2 Normal <1.0 [facility] Comment on above: Order Comment: Speci men Type: BLOOD SPECIMEN Ordering Facility: [facility] Address: [address] [place] [address] Result Comment: Test Methodology: Multiplex flow immunoassay. Performed By: #### 5 1775-5, 28831-8, 01235-4, 63153-9, 12792-2, 39192-6, 52568-0, 44125-9 #### [facility] CLIA [id number] [address] [place] [address] [place] Cyclic citrullinated peptide IgG Qnon 09-05-2024 CCP ANTIBODY IGG QUALITATIVE Negative Normal Negative [facility] Comment on above: Order Comment: Speci men Type: BLOOD SPECIMEN Ordering Facility: [facility] Address: [address] [place] [address] Performed By: #### 5 1775-5, 59795-5, 14755-9, 62212-7, 38866-6, 87580-5, 92910-9, 03358-4 #### [facility] CLIA [id number] [address] [place] [address] [place] DNA ANTIBODY DS BLDon 2024 DNA ANTIBODY 139 IU/mL Normal <=200 [facility] Comment on above: Order Comment: Speci men Type: BLOOD SPECIMEN Ordering Facility: [facility] Address: [address] [place] [address] Result Comment: Nega tive: <200 IU/mL Equivocal: 201-300 IU/mL Moderate Positive: 301-800 IU/mL Strong Positive: >801 IU/mL Performed By: #### 5 1775-5, 02436-6, 73295-1, 65493-2, 61931-8, 25824-1, 25014-1, 22356-4 #### [facility] CLIA [id number] [address] [place] [address] [place] DNA ANTIBODY QUALITATIVE INTERPRETATION Negative Normal Negative [facility] Comment on above: Order Comment: Speci men Type: BLOOD SPECIMEN Ordering Facility: [facility] Address: [address] [place] [address] Performed By: #### 5 1775-5, 89382-3, 66022-7, 43198-6, 77511-4, 47670-9, 58487-5, 17595-2 #### [facility] CLIA [id number] [address] [place] [address] [place] JARED Jo1 Ab Ser-aCncon 2024 Layla-1 extractable nuclear Ab Qn (S) <0.2 Normal <1.0 [facility] Comment on above: Order Comment: Speci men Type: BLOOD SPECIMEN Ordering Facility: [facility] Address: [address] [place] [address] Performed By: #### 5 1775-5, 02405-7, 68551-8, 54064-6, 17654-0, 50241-5, 98015-3, 01685-9 #### [facility] CLIA [id number] [address] [place] [address] [place] JARED CANVAS SHRINKER Ab Ser-aCncon 2024 Ribonucleoprotein extractable nuclear Ab Qn (S) <0.2 Normal <1.0 [facility] Comment on above: Order Comment: Speci men Type: BLOOD SPECIMEN Ordering Facility: [facility] Address: [address] [place] [address] Performed By: #### 5 1775-5, 36152-9, 38721-5, 59630-0, 33648-7, 67105-5, 39940-8, 15263-4 #### [facility] CLIA [id number] [address] [place] [address] [place] JARED SM IgG Ser-aCncon 2024 Rizzo extractable nuclear IgG Qn (S) <0.2 Normal <1.0 [facility] Comment on above: Order Comment: Speci men Type: BLOOD SPECIMEN Ordering Facility: [facility] Address: [address] [place] [address] Performed By: #### 5 1775-5, 71769-4, 99098-0, 59250-6, 59672-1, 78975-7, 97398-5, 50467-2 #### [facility] CLIA [id number] [address] [place] [address] [place] JARED SS-A Ab Ser-aCncon 09-05 Sjogrens syndrome-A extractable nuclear Ab Qn (S) <0.2 Normal <1.0 [facility] Comment on above: Order Comment: Speci men Type: BLOOD SPECIMEN Ordering Facility: [facility] Address: [address] [place] [address] Result Comment: Test Methodology: Multiplex flow immunoassay. Performed By: #### 5 1775-5, 72843-5, 82985-3, 86897-6, 37562-5, 07819-5, 02475-8, 93601-9 #### [facility] CLIA [id number] [address] [place] [address] [place] JARED SS-B Ab Ser-aCncon 09-05 Sjogrens syndrome-B extractable nuclear Ab Qn (S) <0.2 Normal <1.0 [facility] Comment on above: Order Comment: Lacy pena Type: BLOOD SPECIMEN Ordering Facility: [facility] Address: [address] [place] [address] Result Comment: Anti -SSB (anti-La) antibody is used as an aid in diagnosis of a variety of systemic autoimmune diseases, especially for Sjogren's syndrome and systemic lupus erythematosus. Clinical correlation is required. Test Methodology: Multiplex flow immunoassay. Performed By: #### 5 1775-5, 88034-9, 03901-8, 66234-2, 42103-6, 46505-3, 20760-9, 66840-2 #### [facility] CLIA [id number] [address] [place] [address] [place] HYPERSENSITIVITY PNEUMONITIS EVALUATIONon 09-05-2024 A. FLAVUS AB, PRECIPITIN Not detected Normal None Detected [facility] Comment on above: Order Comment: Lacy pena Type: BLOOD SPECIMEN Ordering Facility: [facility] Address: [address] [place] [address] Performed By: #### 5 1775-5, 28239-6, 52527-7, 94741-3, 38276-6, 24791-9, 49600-1, 60612-1 #### [facility] CLIA [id number] [address] [place] [address] [place] A. FUMIGATUS #6 AB, PRECIPITIN Not detected Normal None Detected [facility] Comment on above: Order Comment: Lacy pena Type: BLOOD SPECIMEN Ordering Facility: [facility] Address: [address] [place] [address] Performed By: #### 5 1775-5, 11934-3, 55944-4, 20435-5, 19143-6, 97995-8, 96581-3, 03610-2 #### [facility] CLIA [id number] [address] [place] [address] [place] A. FUMIGATUS 2 AB, PRECIPITIN Not detected Normal None Detected [facility] Comment on above: Order Comment: Speci men Type: BLOOD SPECIMEN Ordering Facility: [facility] Address: [address] [place] [address] Performed By: #### 5 1775-5, 62578-4, 17634-1, 02350-0, 52278-3, 01593-1, 72381-7, 15541-1 #### [facility] CLIA [id number] [address] [place] [address] [place] A. FUMIGATUS 3 AB, PRECIPITIN Not detected Normal None Detected [facility] Comment on above: Order Comment: Speci men Type: BLOOD SPECIMEN Ordering Facility: [facility] Address: [address] [place] [address] Performed By: #### 5 1775-5, 36955-8, 00220-2, 97844-1, 67931-2, 18621-3, 68915-7, 96232-6 #### [facility] CLIA [id number] [address] [place] [address] [place] A. PULLULANS, AB PRECIPITIN Not detected Normal None Detected [facility] Comment on above: Order Comment: Speci men Type: BLOOD SPECIMEN Ordering Facility: [facility] Address: [address] [place] [address] Performed By: #### 5 1775-5, 17676-8, 71263-8, 01277-9, 66422-3, 89197-0, 60787-6, 84697-1 #### [facility] CLIA [id number] [address] [place] [address] [place] ALLERGEN, ANIMAL, FEATHER MIX IGE Negative Normal Negative [facility] Comment on above: Order Comment: Speci men Type: BLOOD SPECIMEN Ordering Facility: [facility] Address: [address] [place] [address] Performed By: #### 5 1775-5, 95928-0, 27583-9, 95283-0, 12767-3, 85374-1, 72580-4, 93726-7 #### [facility] CLIA [id number] [address] [place] [address] [place] ALLERGEN, FOOD, BEEF, IGE <0.10 Normal <=0.34 [facility] Comment on above: Order Comment: Speci men Type: BLOOD SPECIMEN Ordering Facility: [facility] Address: [address] [place] [address] Performed By: #### 5 1775-5, 98029-2, 64207-4, 81076-5, 39970-4, 37311-1, 10851-6, 99914-5 #### [facility] CLIA [id number] [address] [place] [address] [place] ALLERGEN, FOOD, PORK IGE <0.10 Normal <=0.34 [facility] Comment on above: Order Comment: Speci men Type: BLOOD SPECIMEN Ordering Facility: [facility] Address: [address] [place] [address] Performed By: #### 5 1775-5, 96061-2, 97296-2, 24849-6, 22706-3, 13642-5, 07009-7, 08514-0 #### [facility] CLIA [id number] [address] [place] [address] [place] ALLERGEN, FUNGI/MOLD, PHOMA BETAE IGE <0.10 Normal <=0.34 [facility] Comment on above: Order Comment: Speci men Type: BLOOD SPECIMEN Ordering Facility: [facility] Address: [address] [place] [address] Performed By: #### 5 1775-5, 89485-7, 51965-7, 46003-6, 45056-0, 83271-2, 09615-2, 05811-1 #### [facility] CLIA [id number] [address] [place] [address] [place] ALLERGEN, INTERP, IMMUNOCAP SCORE IGE See Note Normal [facility] Comment on above: Order Comment: Speci men Type: BLOOD SPECIMEN Ordering Facility: [facility] Address: [address] [place] [address] Result Comment: ZELALEMJuan RAFA INTERVAL: Allergen, Interpretation Less than 0.10 kU/L......Class 0.....No significant level detected 0.10-0.34 kU/L...........Class 0/1...Clinical relevance undetermined 0.35-0.70 kU/L...........Class 1.....Low 0.71-3.50 kU/L...........Class 2.....Moderate 3.51-17.50 kU/L..........Class 3.....High 17.51-50.00 kU/L.........Class 4.....Very High 50.01-100.00 kU/L........Class 5.....Very High Greater than 100.00kU/L..Class 6.....Very High Allergen results of 0.10-0.34 kU/L are intended for specialist use as the clinical relevance is undetermined. Even though increasing ranges are reflective of increasing concentrations of allergen-specific IgE, these concentrations may not correlate with the degree of clinical response or skin testing results when challenged with a specific allergen. The correlation of allergy laboratory results with clinical history and in vivo reactivity to specific allergens is essential. A negative test may not rule out clinical allergy or even anaphylaxis. Performed By: 1,2,[address] [address] [place] [address] Manager Business Planning: Norman Castillo MD, PhD CLIA Number: [id number] Performed By: #### 5 1775-5, 71070-1, 46025-8, 73865-6, 96264-0, 53773-4, 68346-6, 77545-6 #### [facility] CLIA [id number] [address] [place] [address] [place] [address] [place] FUMIGATUS #1 AB, PRECIPITIN Not detected Normal None Detected [facility] Comment on above: Order Comment: Speci men Type: BLOOD SPECIMEN Ordering Facility: [facility] Address: [address] [place] [address] Performed By: #### 5 1775-5, 48033-9, 47200-5, 42286-6, 60115-9, 13420-9, 29714-5, 31312-4 #### [facility] CLIA [id number] [address] [place] [address] [place] M. FAENI AB, PRECIPITIN Not detected Normal None Detected [facility] Comment on above: Order Comment: Speci men Type: BLOOD SPECIMEN Ordering Facility: [facility] Address: [address] [place] [address] Performed By: #### 5 1775-5, 50303-8, 40039-3, 99597-1, 67592-9, 24834-6, 75434-8, 42169-8 #### [facility] CLIA [id number] [address] [place] [address] [place] PIGEON SERUM AB Not detected Normal None Detected [facility] Comment on above: Order Comment: Speci men Type: BLOOD SPECIMEN Ordering Facility: [facility] Address: [address] [place] [address] Performed By: #### 5 1775-5, 71651-3, 39141-8, 21522-3, 41139-3, 69158-0, 36475-8, 29143-6 #### [facility] CLIA [id number] [address] [place] [address] [place] S. VIRIDIS AB, PRECIPITIN Not detected Normal None Detected [facility] Comment on above: Order Comment: Speci men Type: BLOOD SPECIMEN Ordering Facility: [facility] Address: [address] [place] [address] Performed By: #### 5 1775-5, 89037-0, 49478-5, 29265-4, 87687-7, 59278-8, 89866-7, 20565-7 #### [facility] CLIA [id number] [address] [place] [address] [place] T. CANDIDUS AB, PRECIPITIN Not detected Normal None Detected [facility] Comment on above: Order Comment: Speci jean Type: BLOOD SPECIMEN Ordering Facility: [facility] Address: [address] [place] [address] Result Comment: Test ing includes antibodies directed at Aureobasidium pullulans, Aspergillus flavus, Aspergillus fumigatus #1, Aspergillus fumigatus #2, Aspergillus fumigatus #3, Aspergillus fumigatus #6, Micropolyspora faeni, [place] Serum, Saccharomonospora viridis, and Thermoactinomyces candidus. Performed By: #### 5 1775-5, 86866-2, 33762-9, 06324-7, 36281-7, 46569-7, 57298-1, 69980-1 #### [facility] CLIA [id number] [address] [place] [address] [place] Layla-1 extractable nuclear Ab Qn (S)on 09-05-2024 LAYLA 1 ANTIBODY QUAL Negative Normal Negative [facility] Comment on above: Order Comment: Lacy pena Type: BLOOD SPECIMEN Ordering Facility: [facility] Address: [address] [place] [address] Result Comment: Anti -LAYLA-1 antibody is used as an aid in diagnosis of polymyositis and dermatomyositis especially with pulmonary involvement. A negative result cannot rule out polymyositis or dermatomyositis. Clinical correlation is required. Test Methodology: Multiplex flow immunoassay. Performed By: #### 5 1775-5, 30258-5, 75713-4, 09942-2, 81158-6, 96741-9, 39274-6, 32593-3 #### [facility] CLIA [id number] [address] [place] [address] [place] POLYMYOSITIS AND DERMATOMYOS ITIS PANELon 09-05-2024 LEWIS INTERP COMMENT See Note Normal [facility] Comment on above: Order Comment: Speci men Type: BLOOD SPECIMEN Ordering Facility: [facility] Address: [address] [place] [address] Result Comment: Anti nuclear antibodies by IFA negative for homogeneous, speckled, nucleolar, centromere, and nuclear dots patterns. Cytoplasmic antibodies by IFA negative for reticular/AMA, discrete/GW body-like, polar/golgi-like, rods and rings, and cytoplasmic speckled patterns. INTERPRETIVE INFORMATION: LEWIS Interpretive Comment Presence of antinuclear antibodies (LEWIS) is a hallmark feature of systemic autoimmune rheumatic diseases (SARD). However, LEWIS lacks diagnostic specificity and is associated with a variety of diseases (cancers, autoimmune, infectious, and inflammatory conditions) and may also occur in healthy individuals in varying prevalence. The lack of diagnostic specificity requires confirmation of positive LEWIS by more specific serologic tests. LEWIS (nuclear reactivity) positive patterns reported include centromere, homogeneous, nuclear dots, nucleolar, or speckled. LEWIS (cytoplasmic reactivity) positive patterns reported include reticular/AMA, discrete/GW body-like, polar/golgi-like, cytoplasmic speckled or rods and rings. All positive patterns are reported to endpoint titers (1:2560). Reported patterns may help guide differential diagnosis, although they may not be specific for individual antibodies or diseases. Mitotic staining patterns not reported. Negative results do not necessarily rule out SARD. Performed By: #### 5 1775-5, 26147-0, 90963-1, 87702-2, 38449-3, 39404-3, 00397-3, 32410-4 #### [facility] CLIA [id number] [address] [place], [place] [address] [place] ANTINUCLEAR ANTIBODY (LEWIS) HEP-2, IGG <1:80 Normal <1:80 [facility] Comment on above: Order Comment: Lacy pena Type: BLOOD SPECIMEN Ordering Facility: [facility] Address: [address] [place] [address] Performed By: #### 5 1775-5, 01302-2, 53296-9, 71018-0, 42638-8, 12044-8, 34032-1, 89093-8 #### [facility] CLIA [id number] [address] [place] [address] [place] EJ (GLYCYL-TRNA SYNTHETASE) ANTIBODY Negative Normal Negative [facility] Comment on above: Order Comment: Lacy pena Type: BLOOD SPECIMEN Ordering Facility: [facility] Address: [address] [place] [address] Performed By: #### 5 1775-5, 58057-4, 58400-5, 76397-4, 24953-0, 92130-4, 91456-8, 13073-4 #### [facility] CLIA [id number] [address] [place] [address] [place] DANIELLE (TYROSYL-TRNA SYNTHETASE) AB Negative Normal Negative [facility] Comment on above: Order Comment: Speci jean Type: BLOOD SPECIMEN Ordering Facility: [facility] Address: [address] [place] [address] Result Comment: Danielle a ntibody negative by line immunoassay. No band corresponding to 65 kDa observed by immunoprecipitation. Performed By: #### 5 1775-5, 60951-2, 18233-7, 91366-2, 86538-9, 62152-6, 18031-6, 87470-2 #### [facility] CLIA [id number] [address] [place] [address] [place] LAYLA-1 (HISTIDYL-TRNA SYNTHETASE) AB, IGG 1 AU/mL Normal 0-40 [facility] Comment on above: Order Comment: Lacy pena Type: BLOOD SPECIMEN Ordering Facility: [facility] Address: [address] [place] [address] Result Comment: INTE RPRETIVE INFORMATION: Layla-1 Antibody, IgG 29 AU/mL or less.........Negative 30-40 AU/mL..............Equivocal 41 AU/mL or greater......Positive Presence of Layla-1 (antihistidyl transfer RNA [t-RNA] synthetase) antibody is associated with polymyositis and may also be seen in patients with dermatomyositis. Layla-1 antibody is associated with pulmonary involvement (interstitial lung disease), Raynaud phenomenon, arthritis, and ground support equipment mechanic's hands (implicated in antisynthetase syndrome). Performed By: #### 5 1775-5, 80565-8, 49476-7, 56101-9, 77734-9, 91088-3, 65210-2, 50670-4 #### [facility] CLIA [id number] [address] [place], [place] [id number] [place] (ASPARAGINYL-TRNA SYNTHETASE) AB Negative Normal Negative [facility] Comment on above: Order Comment: Speci men Type: BLOOD SPECIMEN Ordering Facility: [facility] Address: [address] [place] [address] Result Comment: Ks a ntibody negative by line immunoassay. No band corresponding to 65 kDa observed by immunoprecipitation. Performed By: #### 5 1775-5, 04514-6, 21634-9, 01834-0, 25508-0, 86935-9, 82096-5, 78454-9 #### [facility] CLIA [id number] [address] [place] [address] [place] MDA5 (CADM-140) AB Negative Normal Negative [facility] Comment on above: Order Comment: Speci men Type: BLOOD SPECIMEN Ordering Facility: [facility] Address: [address] [place] [address] Performed By: #### 5 1775-5, 90638-7, 49591-2, 24524-9, 45221-1, 75105-3, 44070-3, 95338-2 #### [facility] CLIA [id number] [address] [place] [address] [place]-2 (NUCLEAR HELICASE PROTEIN) ANTIBODY Negative Normal Negative [facility] Comment on above: Order Comment: Speci men Type: BLOOD SPECIMEN Ordering Facility: [facility] Address: [address] [place] [address] Performed By: #### 5 1775-5, 38633-4, 36986-0, 98054-3, 86477-1, 53810-0, 58928-7, 97974-2 #### [facility] CLIA [id number] [address] [place] [address] [place] [address] [place] MYOSITIS INTERPRETIVE INFORMATION See Note Normal [facility] Comment on above: Order Comment: Speci men Type: BLOOD SPECIMEN Ordering Facility: [facility] Address: [address] [place] [address] Result Comment: INTE RPRETIVE INFORMATION: Dermatomyositis and Polymyositis Panel 2 If present, myositis-specific antibodies (MSAs) are specific for myositis, and may be useful in establishing diagnosis as well as prognosis. MSAs are generally regarded as mutually exclusive with rare exceptions; the occurrence of two or more MSAs should be carefully evaluated in the context of patient's clinical presentation. Myositis-associated antibodies (Katarina) may be found in patients with CTD, including overlap syndromes, and are generally not specific for myositis. The following table will help in identifying the association of any antibodies found as either MSAs or Katarina. Antibody Specificity . . . . . . . . . . . . MSAs . . . . Katarina Layla-1 (histidyl-tRNA synthetase) Ab, IgG . . X PL-12 (alanyl-tRNA synthetase) Antibody . . X PL-7 (threonyl-tRNA synthetase) Antibody . . X EJ (glycyl-tRNA synthetase) Antibody . . . . X OJ (isoleucyl-tRNA synthetase) Antibody . . X SRP (Signal Recognition Particle) Ab . . . . X Mi-2 (nuclear helicase protein) Antibody . . X P155/140 Antibody . . . . . . . . . . . . . X TIF-1 gamma (155 kDA) Ab . . . . . . . . . X SAE1 (SUMO activating enzyme) Ab . . . . . . X MDA5 (CADM-140) Ab . . . . . . . . . . . . . X NXP2 (Nuclear matrix protein-2) Ab . . . . . X Danielle (tyrosyl-tRNA synthetase) Ab. . . . . . . X Ks (asparaginyl-tRNA synthetase) Ab . . . . X Zo (phenylalanyl-tRNA synthetase) Ab . . . . X This test was developed and its performance characteristics determined by 1,2,3 [facility]. It has not been cleared or approved by the US Food and Drug Administration. This test was performed in a CLIA certified laboratory and is intended for clinical purposes. Performed By: #### 5 1775-5, 22558-8, 75930-7, 45548-2, 35374-6, 15778-6, 13016-3, 29706-8 #### [facility] CLIA [id number] [address] [place] [address] [place] NXP2 (NUCLEAR MATRIX PROTEIN-2) AB Negative Normal Negative [facility] Comment on above: Order Comment: Speci men Type: BLOOD SPECIMEN Ordering Facility: [facility] Address: [address] [place] [address] Performed By: #### 5 1775-5, 75838-8, 68689-3, 81559-7, 86114-4, 43885-3, 25135-3, 90560-6 #### [facility] CLIA [id number] [address] [place] [address] [place] OJ (ISOLEUCYL-TRNA SYNTHETASE) ANTIBODY Negative Normal Negative [facility] Comment on above: Order Comment: Speci men Type: BLOOD SPECIMEN Ordering Facility: [facility] Address: [address] [place] [address] Performed By: #### 5 1775-5, 58558-5, 63118-2, 15297-2, 42196-1, 91661-5, 47750-7, 71650-4 #### [facility] CLIA [id number] [address] [place] [address] [place] P155/140 ANTIBODY Negative Normal Negative [facility] Comment on above: Order Comment: Speci men Type: BLOOD SPECIMEN Ordering Facility: [facility] Address: [address] [place] [address] Performed By: #### 5 1775-5, 33209-8, 00519-9, 50723-5, 20699-0, 35973-8, 81151-4, 81319-3 #### [facility] CLIA [id number] [address] [place] [address] [place] PL-12 (ALANYL-TRNA SYNTHETASE) ANTIBODY Negative Normal Negative [facility] Comment on above: Order Comment: Speci men Type: BLOOD SPECIMEN Ordering Facility: [facility] Address: [address] [place] [address] Performed By: #### 5 1775-5, 66305-1, 51863-4, 84528-3, 28769-9, 90933-2, 73415-8, 51223-2 #### [facility] CLIA [id number] [address] [place] [address] [place] PL-7 (THREONYL-TRNA SYNTHETASE) ANTIBODY Negative Normal Negative [facility] Comment on above: Order Comment: Speci men Type: BLOOD SPECIMEN Ordering Facility: [facility] Address: [address] [place] [address] Performed By: #### 5 1775-5, 03363-5, 61570-0, 14191-4, 56323-4, 57482-2, 32415-3, 39223-9 #### [facility] CLIA [id number] [address] [place] [address] [place] SAE1 (SUMO ACTIVATING ENZYME) AB Negative Normal Negative [facility] Comment on above: Order Comment: Speci men Type: BLOOD SPECIMEN Ordering Facility: [facility] Address: [address] [place] [address] Performed By: #### 5 1775-5, 90466-0, 18819-0, 70878-9, 72237-4, 86038-9, 81938-4, 08627-6 #### [facility] CLIA [id number] [address] [place] [address] [place] SRP (SIGNAL RECOGNITION PARTICLE) AB Negative Normal Negative [facility] Comment on above: Order Comment: Speci men Type: BLOOD SPECIMEN Ordering Facility: [facility] Address: [address] [place] [address] Performed By: #### 5 1775-5, 18110-5, 15331-5, 46660-6, 84549-4, 82296-7, 40487-1, 27070-7 #### [facility] CLIA [id number] [address] [place] [address] [place] TIF-1 GAMMA (155 KDA) AB Negative Normal Negative [facility] Comment on above: Order Comment: Speci men Type: BLOOD SPECIMEN Ordering Facility: [facility] Address: [address] [place] [address] Performed By: #### 5 1775-5, 79635-8, 17142-1, 26282-5, 30991-4, 52920-4, 33507-9, 01668-5 #### [facility] CLIA [id number] [address] [place] [address] [place] ZO (PHENYLALANYL-TRNA SYNTHETASE) AB Negative Normal Negative [facility] Comment on above: Order Comment: Speci men Type: BLOOD SPECIMEN Ordering Facility: [facility] Address: [address] [place] [address] Result Comment: Zo a ntibody negative by line immunoassay. No bands corresponding to 68 and 58 kDa observed by immunoprecipitation. Performed By: 1,2,[address] [facility] [address] [place] [id number] Manager Business Planning: Norman Castillo MD, PhD CLIA Number: [id number] Performed By: #### 5 1775-5, 99202-0, 11329-9, 12670-5, 56264-2, 39749-4, 70428-3, 25051-1 #### [facility] CLIA [id number] [address] [place] [address] [place] RNA POLYMERASE III ABon 02- RNA POLYMERASE III AB 6 Units Normal 0-[address] [facility] Comment on above: Order Comment: Speci men Type: BLOOD SPECIMEN Ordering Facility: [facility] Address: [address] [place] [address] Result Comment: INTE RPRETIVE INFORMATION: RNA Polymerase III Antibody, IgG 19 Units or less ......Negative 20 - 39 Units .........Weak Positive 40 - 80 Units .........Moderate Positive 81 Units or greater ...Strong Positive The presence of RNA polymerase III IgG antibody, when considered in conjunction with other laboratory and clinical findings, is an aid in the diagnosis of systemic sclerosis (SSc) with increased incidence of skin involvement and renal crisis with the diffuse cutaneous form of SSc. RNA polymerase III IgG antibody occur in about 11-23 percent of SSc patients, and typically in the absence of anti-centromere and anti-Scl-70 antibodies. A negative result indicates no detectable IgG antibodies to the dominant antigen of RNA polymerase III and does not rule out the possibility of SSc. False-positive results may also occur due to non-specific binding of immune complexes. Strong clinical correlation is recommended. If clinical suspicion remains, consider additional testing for other antibodies associated with SSc, including centromere, Scl-70, U3-CANVAS SHRINKER, PM/Scl, or Th/To. Performed by 1,2,3 [facility], [address] [place] [id number] [email or web address] MD, Lab. Director [facility] Number: [id number] Performed By: #### 5 1775-5, 25158-0, 59590-2, 60346-8, 57145-8, 13363-0, 39817-5, 47112-4 #### [facility] CLIA [id number] [address] [place] [address] [place] Rheumatoid fact SerPl-aCncon 09-05-2024 Rheumatoid factor Qn [IU]/mL Normal <16 [facility] Comment on above: Order Comment: Speci men Type: BLOOD SPECIMEN Ordering Facility: [facility] Address: [facility] [place] [address] Performed By: #### 1 1572-5 #### [facility] CLIA [id number] [address] [place] [address] [place] Ribonucleoprotein extractabl e nuclear Ab Qn (S)on 09-05-2024 ANTI-CANVAS SHRINKER QUAL Negative Normal Negative [facility] Comment on above: Order Comment: Lacy pena Type: BLOOD SPECIMEN Ordering Facility: [facility] Address: [address] [place] [address] Performed By: #### 5 1775-5, 87195-9, 21423-9, 54399-4, 12777-8, 87510-6, 18740-2, 01840-6 #### [facility] CLIA [id number] [address] [place] [address] [place] RIBOSOMAL CANVAS SHRINKER QUAL Negative Normal Negative [facility] Comment on above: Order Comment: Lacy pena Type: BLOOD SPECIMEN Ordering Facility: [facility] Address: [address] [place] [address] Result Comment: Anti -Ribosomal RNA (Ribosomal P) antibody is used as an aid in diagnosis of systemic autoimmune diseases especially systemic lupus erythematosus and mixed connective tissue disease. Cross-reactivity with Anti-rizzo antibody is not uncommon. Clinical correlation is required. Test Methodology: Multiplex flow immunoassay. Performed By: #### 5 1775-5, 08443-6, 26210-8, 02097-0, 79075-9, 17289-1, 40229-2, 47554-5 #### [facility] CLIA [id number] [address] [place] [address] [place] SCL-70 extractable nuclear I gG IA Qn (S)on 09-05-2024 SCLERODERMA AB QUAL Negative Normal Negative [facility] Comment on above: Order Comment: Lacy pena Type: BLOOD SPECIMEN Ordering Facility: [facility] Address: [address] [place] [address] Performed By: #### 5 1775-5, 18205-4, 62203-9, 48207-0, 45373-8, 09012-2, 67514-5, 04355-4 #### [facility] CLIA [id number] [address] [place] [address] [place] SCLERODERMA IGG AB <0.2 Normal <1.0 [facility] Comment on above: Order Comment: Speci men Type: BLOOD SPECIMEN Ordering Facility: [facility] Address: [address] [place] [address] Result Comment: Scl- 70/Scleroderma antibody test is used as an aid in diagnosis of systemic sclerosis especially the diffuse cutaneous form. A negative result cannot rule out systemic sclerosis. The final interpretation should consider clinical picture and other test results such as anti-centromere antibody. Test Methodology: Multiplex flow immunoassay. Performed By: #### 5 1775-5, 04540-4, 50099-5, 20382-4, 59777-1, 40204-0, 09920-5, 59449-5 #### [facility] CLIA [id number] [address] [place] [address] [place] Sjogrens syndrome-A extracta ble nuclear Ab Qn (S)on 09-05-2024 SSA ANTIBODY QUAL Negative Normal Negative [facility] Comment on above: Order Comment: Speci men Type: BLOOD SPECIMEN Ordering Facility: [facility] Address: [address] [place] [address] Performed By: #### 5 1775-5, 71305-2, 56596-5, 01289-6, 63106-9, 58533-9, 60416-1, 85819-7 #### [facility] CLIA [id number] [address] [place] [address] [place] Sjogrens syndrome-B extracta ble nuclear Ab Qn (S)on 09-05-2024 SSB ANTIBODY QUAL Negative Normal Negative [facility] Comment on above: Order Comment: Speci men Type: BLOOD SPECIMEN Ordering Facility: [facility] Address: [address] [place] [address] Performed By: #### 5 1775-5, 22460-5, 77223-3, 35482-7, 26827-3, 82440-9, 64296-7, 13230-8 #### [facility] CLIA [id number] [address] [place] [address] [place] Rizzo extractable nuclear Ig G Qn (S)on 09-05-2024 SM ANTIBODY QUAL Negative Normal Negative [facility] Comment on above: Order Comment: Lacy pena Type: BLOOD SPECIMEN Ordering Facility: [facility] Address: [address] [place] [address] Result Comment: Anti -Sm (Rizzo) antibody is used as an aid in diagnosis of systemic lupus erythematosus and its presence is associated with renal disease. A negative result cannot rule out systemic lupus erythematosus. Clinical correlation is required. Test Methodology: Multiplex flow immunoassay. Performed By: #### 5 1775-5, 30907-8, 56530-1, 02982-8, 66152-3, 23203-6, 99349-6, 13216-3 #### [facility] CLIA [id number] [address] [place] [address] [place] cCP IgG SerPl-aCncon 025 Cyclic citrullinated peptide IgG Qn <15 Normal <20 [facility] Comment on above: Order Comment: Lacy pena Type: BLOOD SPECIMEN Ordering Facility: [facility] Address: [address] [place] [address] Performed By: #### 5 1775-5, 35752-0, 58076-2, 49862-6, 26474-9, 75293-7, 64610-6, 01008-7 #### [facility] CLIA [id number] [address] [place] [address] [place] Chest without Contraston Chest without Contrast [facility] Imaging Services [address] [place] [address] Chest without Contrast MR#: [id number] Acct: [id number] Name: RUBI MEJIA Rep #: [id number] : 1950 F 73 From: Alonso Butler MD PCP: Dr. Cris Rizzo MD Status: [facility] CLI Study: Chest without Contrast Date of Exam: 08/15/24 Exam# [id number] Ordering Dr: Cris Rizzo MD EXAM: CT Chest Without Intravenous Contrast CLINICAL INDICATION: TECHNIQUE: Axial computed tomography images of the chest without intravenous contrast. This CT exam was performed using one or more of the following dose reduction techniques: automated exposure control, adjustment of the mA and/or kV according to patient size, and/or use of iterative reconstruction technique. COMPARISON: No relevant prior studies available. FINDINGS: LUNGS AND PLEURAL SPACES: Mild lung emphysema. Dependent atelectasis. No pneumothorax. No significant effusion. No suspicious pulmonary nodules. HEART: Unremarkable. No cardiomegaly. No significant pericardial effusion. No significant coronary artery calcifications. MEDIASTINUM: Scattered mediastinal lymph nodes some of which are upper limits of normal in size and are most likely reactive lymph nodes. BONES/JOINTS: Unremarkable. No acute fracture. No dislocation. SOFT TISSUES: Unremarkable. VASCULATURE: Unremarkable. No thoracic aortic aneurysm. LYMPH NODES: See above. CT/Chest without Contrast IMPRESSION: 1. No suspicious pulmonary nodules. 2. Scattered mediastinal lymph nodes some of which are upper limits of normal in size and are most likely reactive lymph nodes. 3. Continue low-dose CT scan of the chest in 12 months is recommended. Reading Location: [facility] CC: Dr. Cris Rizzo MD Party Planner: Signed Normal [facility] Chest PA and Lateralon 08-04 Chest PA and Lateral [facility] Imaging Services [address] [place] [address] [id number] Chest PA and Lateral MR#: [id number] Acct: [id number] Name: RUBI MEJIA Rep #: [id number] : 1950 F 73 From: Jaguar Garcia MD PCP: Dr. Cris Rizzo MD Status: [facility] Study: Chest PA and Lateral Date of Exam: 08/04/24 Exam# [id number] Ordering Dr: Cris Rizzo [place] [id number] STUDY: X-RAY CHEST REASON FOR EXAM: Female, 73 years old. Cough. TECHNIQUE: Frontal and lateral views of the chest. COMPARISON: None. FINDINGS: Diffuse mild interstitial prominence. There is no demonstrated pleural abnormality. Cardiomegaly. Normal mediastinum and sharita. Normal visualized pulmonary arteries. Aortic tortuosity with calcification. Diffuse moderate thoracic spondylosis. Normal visualized ribs, clavicles, and shoulders. There is no demonstrated abnormality of the visualized soft tissue structures of the upper abdomen. RAD/Chest PA and Lateral IMPRESSION: Cardiomegaly with interstitial prominence. No active or acute cardiopulmonary disease. Electronically Signed: Jaguar Garcia MD at 9:51 EST , CC: Dr. Cris Rizzo MD Party Planner: Signed Normal [facility] Bone density reportOrdered B y: Jd Vazquez on 06-26-2024 Study report Skeletal system DXA [facility] Imaging Services [address] [place] [address] [id number] Dexa Bone Density Study MR#: [id number] Acct: [id number] Name: RUBI MEJIA Rep #: [id number] : 1950 F 73 From: Dionisio Vazquez MD PCP: Dr. Cris Rizzo MD Status: [facility] Study:Dexa Bone Density Study Date of Exam: 06/21/24 Exam# [id number] Ordering Dr: Mychal Jorgensen ORTHOPEDIC MECHANIC-C [id number] STUDY: DUAL ENERGY X-RAY ABSORPTIOMETRY / DXA REASON FOR EXAM: Female, 73 years old. V780 TECHNIQUE: Bone Mineral Density (BMD) measurements of lumbar spine and bilateral hips were obtained. COMPARISON: Comparison is made with prior study dated July 15, 2021. FINDINGS: Lumbar Spine (L1-L4): g/cm2 (1.119) / T-score (0.7) / Z-score (2.9) Findings are suggestive of normal bone density with a low fracture risk. Left Femur Total: g/cm2 (0.759) / T-score (-1.5) / Z-score (0.1) Left Femoral Neck: g/cm2 (0.616) / T-score (-2.1) / Z-score (-0.2) Right Femur Total: g/cm2 (0.725) / T-score (-1.8) / Z-score (-0.2) Right Femoral Neck: g/cm2 (0.627) / T-score (-2.0) / Z-score (-0.1) The T-Scores on the most recent prior examination were: Lumbar Spine (L1-L4): There has been improvement of bone density since the previous examination. Left Femur Total: which represents an improvement of 0.5%. Right Femur Total: which represents a worsening of 4.4%. BD/Dexa Bone Density Study IMPRESSION: The patient is considered osteopenic as outlined below according to World [employer] Organization (WHO) criteria with a high fracture risk. There has been improvement of bone density since the previous examination. Reference Information: The T-score is the number of standard deviations above or below the standard which is normal for young adults at their peak bone mineral density. The World Health Organization (WHO) interprets the T-scores as follows: Above -1 Normal bone density Between -1 and -2.5 Osteopenia Equal to / or below -2.5 Osteoporosis As a practical clinical guideline, osteopenia may be graded as follows: Mild -1 through -1.5 Moderate -1.6 through -2.0 Severe -2.1 through -2.4 The Z-score is the number of standard deviations above or below age-matched controls. A Z-score of less than -1.5 would be considered abnormal. References: 1. NIH Osteoporosis and Related Bone Diseases www osteo.org 2. International Society for Clinical Densitometry www iscd.org 3. National Osteoporosis Foundation www nof.org Electronically Signed: Jd Vazquez MD at 13:19 EST , CC: Dr. Cris Rizzo MD; Kae Jorgensen ~ Party Planner: Signed [facility] Breast imaging reportOrdered By: Jd Vazquez on 06-22-2024 Study report [facility] Imaging Services [address] [place] [address] SCRN MAMM (CAD)W/DAYANARA BILAT MR#: [id number] Acct: [id number] Name: RUBI MEJIA Rep #: [id number] : 1950 F 73 From: Dionisio Vazquez MD PCP: Dr. Cris Rizzo MD Status: [facility] Study:SCRN MAMM (CAD)W/DAYANARA BILAT Date of Exa m: 06/21/24 Exam# [id number] Ordering Dr: Mychal Jorgensen [id number] MAMMOGRAPHY - BILATERAL SCREENING REASON FOR EXAM: Female, 73 years old. Routine annual screening examination. PERTINENT HISTORY: Mother with breast cancer. History of prior right excisional breast biopsy. TECHNIQUE: Digital bilateral breast dayanara (3D mammographic acquisition) in the CC and MLO projections. 2-D mediolateral oblique (MLO) and craniocaudad (CC) views of both breasts were obtained. CAD: Full Field Digital Mammography with Computer Added Detection was performed. COMPARISON: Comparison is made with prior study dated July 15, 2021. FINDINGS: Breast Composition: There are scattered areas of fibroglandular density. There are no dominant masses or suspicious calcifications. No other significant abnormalities are identified. There has been no significant change since the prior study. BI/SCRN MAMM (CAD)W/DAYANAAR BILAT IMPRESSION: Stable bilateral screening mammogram. Yearly follow-up mammogram recommended. (A) ASSESSMENT CATEGORY: BIRADS Category 1: Negative. A letter regarding these results will be sent to the patient by the facility within 30 days. Approximately 10% of breast cancers are not detected by mammography. A normal mammogram should not delay biopsy of a clinically suspicious abnormality. [id number] Electronically Signed: Jd Vazquez MD at 8:11 EST Reading Location ID and State: [address] [place] [address] , Service support , CC: Dr. Cris Rizzo MD; Kae Jorgensen ~ Party Planner: Signed [facility] Dexa Bone Density Studyon Dexa Bone Density Study [facility] Imaging Services [address] [place] [address] [id number] Dexa Bone Density Study MR#: [id number] Acct: [id number] Name: RUBI MEJIA Rep #: [id number] : 1950 F 73 From: Jd colvin MD PCP: Dr. Cris Rizzo MD Status: [facility] Study: Dexa Bone Density Study Date of Exam: 06/21/24 Exam# [id number] Ordering Dr: Kae Jorgensen NP [id number] STUDY: DUAL ENERGY X-RAY ABSORPTIOMETRY / DXA REASON FOR EXAM: Female, 73 years old. V780 TECHNIQUE: Bone Mineral Density (BMD) measurements of lumbar spine and bilateral hips were obtained. COMPARISON: Comparison is made with prior study dated July 15, 2021. FINDINGS: Lumbar Spine (L1-L4): g/cm2 (1.119) / T-score (0.7) / Z-score (2.9) Findings are suggestive of normal bone density with a low fracture risk. Left Femur Total: g/cm2 (0.759) / T-score (-1.5) / Z-score (0.1) Left Femoral Neck: g/cm2 (0.616) / T-score (-2.1) / Z-score (-0.2) Right Femur Total: g/cm2 (0.725) / T-score (-1.8) / Z-score (-0.2) Right Femoral Neck: g/cm2 (0.627) / T-score (-2.0) / Z-score (-0.1) The T-Scores on the most recent prior examination were: Lumbar Spine (L1-L4): There has been improvement of bone density since the previous examination. Left Femur Total: which represents an improvement of 0.5%. Right Femur Total: which represents a worsening of 4.4%. BD/Dexa Bone Density Study IMPRESSION: The patient is considered osteopenic as outlined below according to World Payam Organization (WHO) criteria with a high fracture risk. There has been improvement of bone density since the previous examination. Reference Information: The T-score is the number of standard deviations above or below the standard which is normal for young adults at their peak bone mineral density. The World Health Organization (WHO) interprets the T-scores as follows: Above -1 Normal bone density Between -1 and -2.5 Osteopenia Equal to / or below -2.5 Osteoporosis As a practical clinical guideline, osteopenia may be graded as follows: Mild -1 through -1.5 Moderate -1.6 through -2.0 Severe -2.1 through -2.4 The Z-score is the number of standard deviations above or below age-matched controls. A Z-score of less than -1.5 would be considered abnormal. References: 1. NIH Osteoporosis and Related Bone Diseases www osteo.org 2. International Society for Clinical Densitometry www iscd.org 3. National Osteoporosis Foundation www nof.org Electronically Signed: Jd Vazquez MD at 13:19 EST , CC: Dr. Cris Rizzo MD; Kae Jorgensen Party Planner: Signed Normal [facility] SCRN MAMM (CAD)W/DAYANARA BILATo n 06-21-2024 SCRN MAMM (CAD)W/DAYANARA BILAT [facility] Imaging Services [address] [place] [address] SCRN MAMM (CAD)W/DAYANARA BILAT MR#: [id number] Acct: [id number] Name: RUBI MEJIA Rep #: [id number] : 1950 F 73 From: Jd colvin MD PCP: Dr. Cris Rizzo MD Status: [facility] Study: SCRN MAMM (CAD)W/DAYANARA BILAT Date of Exam: 06/11 08/04 Exam# [id number] Ordering Dr: Kae Jorgensen NP [id number] MAMMOGRAPHY - BILATERAL SCREENING REASON FOR EXAM: Female, 73 years old. Routine annual screening examination. PERTINENT HISTORY: Mother with breast cancer. History of prior right excisional breast biopsy. TECHNIQUE: Digital bilateral breast dayanara (3D mammographic acquisition) in the CC and MLO projections. 2-D mediolateral oblique (MLO) and craniocaudad (CC) views of both breasts were obtained. CAD: Full Field Digital Mammography with Computer Added Detection was performed. COMPARISON: Comparison is made with prior study dated July 15, 2021. FINDINGS: Breast Composition: There are scattered areas of fibroglandular density. There are no dominant masses or suspicious calcifications. No other significant abnormalities are identified. There has been no significant change since the prior study. BI/SCRN MAMM (CAD)W/DAYANARA BILAT IMPRESSION: Stable bilateral screening mammogram. Yearly follow-up mammogram recommended. (A) ASSESSMENT CATEGORY: BIRADS Category 1: Negative. A letter regarding these results will be sent to the patient by the facility within 30 days. Approximately 10% of breast cancers are not detected by mammography. A normal mammogram should not delay biopsy of a clinically suspicious abnormality. [id number] Electronically Signed: Jd Vazquez MD at 8:11 EST Reading Location ID and State: [address] [place] [address] , Service support , CC: Dr. Cris Rizzo MD; Kae Jorgensen Party Planner: Signed Normal [facility] Lyme Screen W/Reflex WBon LYME SCREEN Ab Negative Normal Negative [facility] Comment on above: Result Comment: Lyme antibodies not detected. Reflex testing is not indicated. No laboratory evidence of infection with B. burgdorferi (Lyme disease). Negative results may occur in patients recently infected (less than or equal to 14 days) with B. burgdorferi. If recent infection is suspected, repeat testing on a new sample collected in 7 to 14 days is recommended. Performed at: [address] [id number] Surgical Product Sales Consultant: Fer Eugene PhD, Phone: [phone] Performed By: #### L 501.9520, L501.5200, L500.4050, L100.0100 #### [facility] Laboratory [address] [place], [address] Protein Electroph, Son 05-01 Albumin [Mass/Vol] 3.6 g/dL Normal 2.9-4.4 [facility] Comment on above: Performed By: #### L 501.9520, L501.5200, L500.4050, L100.0100 #### [facility] Laboratory [address] [place], [address] Albumin/Globulin [Mass ratio] 1.2 {ratio} Normal 0.7-1.7 [facility] Comment on above: Performed By: #### L 501.9520, L501.5200, L500.4050, L100.0100 #### [facility] Laboratory [address] [place], [address] ALPHA-1 GLOBUL 0.3 g/dL Normal 0.0-0.4 [facility] Comment on above: Performed By: #### L 501.9520, L501.5200, L500.4050, L100.0100 #### [facility] Laboratory [address] [place], [address] ALPHA-2 GLOBUL 0.7 g/dL Normal 0.4-1.0 [facility] Comment on above: Performed By: #### L 501.9520, L501.5200, L500.4050, L100.0100 #### [facility] Laboratory [address] [place], [address] BETA GLOBULIN 1.1 g/dL Normal 0.7-1.3 [facility] Comment on above: Performed By: #### L 501.9520, L501.5200, L500.4050, L100.0100 #### [facility] Laboratory [address] [place], [address] GAMMA GLOBULIN 0.9 g/dL Normal 0.4-1.8 [facility] Comment on above: Performed By: #### L 501.9520, L501.5200, L500.4050, L100.0100 #### [facility] Laboratory [address] [place], [address] Globulin (S) [Mass/Vol] 3.0 g/dL Normal 2.2-3.9 [facility] Comment on above: Performed By: #### L 501.9520, L501.5200, L500.4050, L100.0100 #### [facility] Laboratory [address] [place], [address] INTERPRETATION Comment Normal . [facility] Comment on above: Result Comment: Prot ein electrophoresis scan will follow via computer, mail, or welder railcar mechanic delivery. Performed By: #### L 501.9520, L501.5200, L500.4050, L100.0100 #### [facility] Laboratory [address] [place], [address] M-SPIKE Not Observed Normal Not Observed [facility] Comment on above: Performed By: #### L 501.9520, L501.5200, L500.4050, L100.0100 #### [facility] Laboratory [address] [place], [address] NOTE: Comment Normal . [facility] Comment on above: Result Comment: The SPE pattern appears unremarkable. Evidence of monoclonal protein is not apparent. Performed By: #### L 501.9520, L501.5200, L500.4050, L100.0100 #### [facility] Laboratory [address] [place], [address] Protein [Mass/Vol] 6.6 g/dL Normal 6.0-8.5 [facility] Comment on above: Performed By: #### L 501.9520, L501.5200, L500.4050, L100.0100 #### [facility] Laboratory [address] [place], [address] CBC-Complete Blood Cnt No Di ffon 04-28-2024 Erythrocyte distribution width (RBC) [Ratio] 11.7 % Normal 11.6-14.6 [facility] Comment on above: Performed By: #### L 501.9520, L501.5200, L500.4050, L100.0100 #### [facility] Laboratory [address] [place], [address] Hematocrit (Bld) [Volume fraction] 38.1 % Normal 37-47 [facility] Comment on above: Performed By: #### L 501.9520, L501.5200, L500.4050, L100.0100 #### [facility] Laboratory [address] [place], [address] Hemoglobin (Bld) [Mass/Vol] 13.0 g/dL Normal 12.0-15.0 [facility] Comment on above: Performed By: #### L 501.9520, L501.5200, L500.4050, L100.0100 #### [facility] Laboratory [address] [place], [address] MCH (RBC) [Entitic mass] 32.7 pg High 27.0-32.0 [facility] Comment on above: Performed By: #### L 501.9520, L501.5200, L500.4050, L100.0100 #### [facility] Laboratory [address] [place], [address] MCHC (RBC) [Mass/Vol] 34.1 g/dL Normal 32-36 [facility] Comment on above: Performed By: #### L 501.9520, L501.5200, L500.4050, L100.0100 #### [facility] Laboratory [address] [place], [address] MCV (RBC) [Entitic vol] 96.0 fL Normal 81-99 [facility] Comment on above: Performed By: #### L 501.9520, L501.5200, L500.4050, L100.0100 #### [facility] Laboratory [address] [place], [address] Platelet mean volume (Bld) [Entitic vol] 9.5 fL Normal 6.2-12.0 [facility] Comment on above: Performed By: #### L 501.9520, L501.5200, L500.4050, L100.0100 #### [facility] Laboratory [address] [place], [address] Platelets (Bld) [#/Vol] 255 10*3/uL Normal 150-450 [facility] Comment on above: Performed By: #### L 501.9520, L501.5200, L500.4050, L100.0100 #### [facility] Laboratory [address] [place], [address] RBC (Bld) [#/Vol] 3.97 10*6/uL Low 4.2-5.4 [facility] Comment on above: Performed By: #### L 501.9520, L501.5200, L500.4050, L100.0100 #### [facility] Laboratory [address] [place], [address] RDW SD 41.4 fl Normal 35.1-43.9 [facility] Comment on above: Performed By: #### L 501.9520, L501.5200, L500.4050, L100.0100 #### [facility] Laboratory [address] [place], [address] WBC (Bld) [#/Vol] 7.1 10*3/uL Normal 4.4-11.0 [facility] Comment on above: Performed By: #### L 501.9520, L501.5200, L500.4050, L100.0100 #### [facility] Laboratory [address] [place], [address] Comprehensive Metabolic Prof ilon 04-28-2024 Albumin [Mass/Vol] 3.4 g/dL Normal 3.2-5.0 [facility] Comment on above: Performed By: #### L 501.9520, L501.5200, L500.4050, L100.0100 #### [facility] Laboratory [address] [place], [address] Albumin/Globulin [Mass ratio] 0.9 {ratio} Normal 0.9-2.4 [facility] Comment on above: Performed By: #### L 501.9520, L501.5200, L500.4050, L100.0100 #### [facility] Laboratory [address] [place], [address] ALK P 87 U/L Normal 45-117 [facility] Comment on above: Performed By: #### L 501.9520, L501.5200, L500.4050, L100.0100 #### [facility] Laboratory [address] [place], [address] ALT [Catalytic activity/Vol] 27 U/L Normal 13-56 [facility] Comment on above: Performed By: #### L 501.9520, L501.5200, L500.4050, L100.0100 #### [facility] Laboratory [address] [place], [address] AST [Catalytic activity/Vol] 30 U/L Normal 15-37 [facility] Comment on above: Performed By: #### L 501.9520, L501.5200, L500.4050, L100.0100 #### [facility] Laboratory [address] [place], [address] Bilirubin [Mass/Vol] 0.40 mg/dL Normal 0.20-1.00 [facility] Comment on above: Result Comment: For patients on eltrombopag therapy, use of Dimension Guinda TBIL is not recommended. Performed By: #### L 501.9520, L501.5200, L500.4050, L100.0100 #### [facility] Laboratory [address] [place], [address] BUN/CRE 28.6 RATIO High 10-20 [facility] Comment on above: Performed By: #### L 501.9520, L501.5200, L500.4050, L100.0100 #### [facility] Laboratory [address] [place], [address] CA,Total 9.3 mg/dL Normal 8.5-10.1 [facility] Comment on above: Performed By: #### L 501.9520, L501.5200, L500.4050, L100.0100 #### [facility] Laboratory [address] [place], [address] Chloride [Moles/Vol] 106 mmol/L Normal 98-107 [facility] Comment on above: Performed By: #### L 501.9520, L501.5200, L500.4050, L100.0100 #### [facility] Laboratory [address] [place], [address] CO2 [Moles/Vol] 29.0 mmol/L Normal 21.0-32.0 [facility] Comment on above: Performed By: #### L 501.9520, L501.5200, L500.4050, L100.0100 #### [facility] Laboratory [address] [place], [address] Creatinine [Mass/Vol] 0.77 mg/dL Normal 0.55-1.02 [facility] Comment on above: Result Comment: The validity of the calculated GFR GFRAA in patients over 70 years has not been determined. Clinical correlation is essential. Performed By: #### L 501.9520, L501.5200, L500.4050, L100.0100 #### [facility] Laboratory [address] [place], [address] EST GFR - AA 95 mL/min Normal >60 [facility] Comment on above: Result Comment: Afri can Citizen Of [place] GFR Calc Performed By: #### L 501.9520, L501.5200, L500.4050, L100.0100 #### [facility] Laboratory [address] [place], [address] GAP 3 Low 5-15 [facility] Comment on above: Performed By: #### L 501.9520, L501.5200, L500.4050, L100.0100 #### [facility] Laboratory [address] [place], [address] GFR/1.73 sq M.predicted among non-blacks MDRD (S/P/Bld) [Vol rate/Area] 79 mL/min/{1.73_m2} Normal >60 [facility] Comment on above: Result Comment: Non- GFR Calc Performed By: #### L 501.9520, L501.5200, L500.4050, L100.0100 #### [facility] Laboratory [address] [place], [address] Globulin (S) [Mass/Vol] 3.6 g/dL Normal 2.2-4.2 [facility] Comment on above: Performed By: #### L 501.9520, L501.5200, L500.4050, L100.0100 #### [facility] Laboratory [address] [place], [address] Glucose [Mass/Vol] 91 mg/dL Normal 74-106 [facility] Comment on above: Performed By: #### L 501.9520, L501.5200, L500.4050, L100.0100 #### [facility] Laboratory [address] [place], [address] Potassium [Moles/Vol] 3.9 mmol/L Normal 3.5-5.1 [facility] Comment on above: Performed By: #### L 501.9520, L501.5200, L500.4050, L100.0100 #### [facility] Laboratory [address] [place], [address] Sodium [Moles/Vol] 138 mmol/L Normal 136-145 [facility] Comment on above: Performed By: #### L 501.9520, L501.5200, L500.4050, L100.0100 #### [facility] Laboratory [address] [place], [address] T PROT 7.0 g/dL Normal 6.4-8.2 [facility] Comment on above: Performed By: #### L 501.9520, L501.5200, L500.4050, L100.0100 #### [facility] Laboratory [address] [place], [address] Urea nitrogen [Mass/Vol] 22 mg/dL High 01-26 [facility] Comment on above: Performed By: #### L 501.9520, L501.5200, L500.4050, L100.0100 #### [facility] Laboratory [address] [place], [address] Erythrocyte Sed Rateon 04-28 SED RATE 8 mm/hr Normal 0-30 [facility] Comment on above: Performed By: #### L 501.9520, L501.5200, L500.4050, L100.0100 #### [facility] Laboratory [address] [place], [address] Magnesiumon 04-28-2024 Magnesium [Mass/Vol] 2.1 mg/dL Normal 1.6-2.6 [facility] Comment on above: Performed By: #### L 501.9520, L501.5200, L500.4050, L100.0100 #### [facility] Laboratory [address] [place], [address] Thyroid Stim Hormone (TSH)on 04-28-2024 TSH 1.800 uIU/mL Normal 0.358-3.740 [facility] Comment on above: Performed By: #### L 501.9520, L501.5200, L500.4050, L100.0100 #### [facility] Laboratory [address] [place], [address] CBC W/Diff, Automatedon 01-09 Absolute Lymph 2.26 X10 3/uL Normal 0.83-4.51 [facility] Comment on above: Order Comment: Order Date: 01/27/24 Order Info: 0184-1 - CBCD Performed By: #### L 501.9520, L501.5200, L500.4050, L100.0100 #### [facility] Laboratory [address] [place], [address] Absolute Neut 4.5 X10 3/uL Normal 2.0-7.7 [facility] Comment on above: Order Comment: Order Date: 01/27/24 Order Info: 0184-1 - CBCD Performed By: #### L 501.9520, L501.5200, L500.4050, L100.0100 #### [facility] Laboratory [address] [place], [address] Basophils/100 WBC (Bld) 0.9 % Normal 0-1 [facility] Comment on above: Order Comment: Order Date: 01/27/24 Order Info: 0184-1 - CBCD Performed By: #### L 501.9520, L501.5200, L500.4050, L100.0100 #### [facility] Laboratory [address] [place], [address] Eosinophils/100 WBC (Bld) 2.4 % Normal 0-5 [facility] Comment on above: Order Comment: Order Date: 01/27/24 Order Info: 0184-1 - CBCD Performed By: #### L 501.9520, L501.5200, L500.4050, L100.0100 #### [facility] Laboratory [address] [place], [address] Erythrocyte distribution width (RBC) [Ratio] 11.7 % Normal 11.6-14.6 [facility] Comment on above: Order Comment: Order Date: 01/27/24 Order Info: [id number]- - CBCD Performed By: #### L 501.9520, L501.5200, L500.4050, L100.0100 #### [facility] Laboratory [address] [place], [address] Hematocrit (Bld) [Volume fraction] 41.5 % Normal 37-47 [facility] Comment on above: Order Comment: Order Date: 01/27/24 Order Info: [id number]- - CBCD Performed By: #### L 501.9520, L501.5200, L500.4050, L100.0100 #### [facility] Laboratory [address] [place], [address] Hemoglobin (Bld) [Mass/Vol] 13.9 g/dL Normal 12.0-15.0 [facility] Comment on above: Order Comment: Order Date: 01/27/24 Order Info: 0184- - CBCD Performed By: #### L 501.9520, L501.5200, L500.4050, L100.0100 #### [facility] Laboratory [address] [place], [address] IG% 0.300 Normal 0.0-0.9 [facility] Comment on above: Order Comment: Order Date: 01/27/24 Order Info: 0184-1 - CBCD Result Comment: IG% - Immature Granulocytes (promyelocytes, myelocytes and metamyelocytes) > 1% indicates that a LEFT SHIFT is Present. Performed By: #### L 501.9520, L501.5200, L500.4050, L100.0100 #### [facility] Laboratory [address] [place], [address] Lymphocytes/100 WBC (Bld) 29.6 % Normal 19-41 [facility] Comment on above: Order Comment: Order Date: 01/27/24 Order Info: 0184-1 - CBCD Performed By: #### L 501.9520, L501.5200, L500.4050, L100.0100 #### [facility] Laboratory [address] [place], [address] MCH (RBC) [Entitic mass] 32.0 pg Normal 27.0-32.0 [facility] [facility] Comment on above: Order Comment: Order Date: 01/27/24 Order Info: [id number]- - CBCD Performed By: #### L [id number], L501.5200, L500.4050, L100.0100 #### [facility] Laboratory [address] [place], [address] MCHC (RBC) [Mass/Vol] 33.5 g/dL Normal 32-36 [facility] Comment on above: Order Comment: Order Date: 01/27/24 Order Info: [id number]- - CBCD Performed By: #### L [id number], L501.5200, L500.4050, L100.0100 #### [facility] [address] [place], [address] MCV (RBC) [Entitic vol] 95.4 fL Normal 81-99 [facility] Comment on above: Order Comment: Order Date: 01/27/24 Order Info: [id number] - CBCD Performed By: #### L [id number], L501.5200, L500.4050, L100.0100 #### [facility] [address] [place], [address] Monocytes/100 WBC (Bld) 7.9 % Normal 0-10 [facility] Comment on above: Order Comment: Order Date: 01/27/24 Order Info: [id number] - CBCD Performed By: #### L [id number], L501.5200, L500.4050, L100.0100 #### [facility] [address] [place], [address] Neutrophils/100 WBC (Bld) 58.9 % Normal 47-70 [facility] Comment on above: Order Comment: Order Date: 01/27/24 Order Info: [id number] - CBCD Performed By: #### L [id number], L501.5200, L500.4050, L100.0100 #### [facility] [address] [place], [address] Nucleated RBC (Bld) [#/Vol] 0 10*3/uL Normal 0-5 [facility] Comment on above: Order Comment: Order Date: 01/27/24 Order Info: [id number] - CBCD Performed By: #### L 501.9520, L501.5200, L500.4050, L100.0100 #### [facility] [address] [place], [address] Platelet mean volume (Bld) [Entitic vol] 10.1 fL Normal 6.2-12.0 [facility] Comment on above: Order Comment: Order Date: 01/27/24 Order Info: [id number] - CBCD Performed By: #### L 501.9520, L501.5200, L500.4050, L100.0100 #### [facility] [address] [place], [address] Platelets (Bld) [#/Vol] 282 10*3/uL Normal 150-450 [facility] Comment on above: Order Comment: Order Date: 01/27/24 Order Info: [id number] - CBCD Performed By: #### L [id number], L501.5200, L500.4050, L100.0100 #### [facility] [address] [place], [place], [id number] RBC (Bld) [#/Vol] 4.35 10*6/uL Normal 4.2-5.4 [facility] Comment on above: Order Comment: Order Date: 01/27/24 Order Info: [id number]- - CBCD Performed By: #### L 501.9520, L501.5200, L500.4050, L100.0100 #### [facility] [address] [place], [address] RDW SD 41.3 fl Normal 35.1-43.9 [facility] Comment on above: Order Comment: Order Date: 01/27/24 Order Info: [id number]- - CBCD Performed By: #### L 501.9520, L501.5200, L500.4050, L100.0100 #### [facility] Laboratory [address] [place], [address] WBC (Bld) [#/Vol] 7.6 10*3/uL Normal 4.4-11.0 [facility] Comment on above: Order Comment: Order Date: 01/27/24 Order Info: [id number]- - CBCD Performed By: #### L [id number], L501.5200, L500.4050, L100.0100 #### [facility] [address] [place], [address] Comprehensive Metabolic Prof wion 01-27-2024 Albumin [Mass/Vol] 3.8 g/dL Normal 3.2-5.0 [facility] Comment on above: Order Comment: Order Date: 01/27/24 Order Info: [id number] - CMP Order Info: [id number] - MG Order Info: [id number] - TSH Performed By: #### L 501.9520, L501.5200, L500.4050, L100.0100 #### [facility] [address] [place], [address] Albumin/Globulin [Mass ratio] 1.1 {ratio} Normal 0.9-2.4 [facility] Comment on above: Order Comment: Order Date: 01/27/24 Order Info: [id number] - CMP Order Info: [id number] - MG Order Info: [id number] - TSH Performed By: #### L 501.9520, L501.5200, L500.4050, L100.0100 #### [facility] [address] [place], [address] ALK P 85 U/L Normal 45-117 [facility] Comment on above: Order Comment: Order Date: 01/27/24 Order Info: [id number] - CMP Order Info: [id number] - MG Order Info: 301-3 - TSH Performed By: #### L 501.9520, L501.5200, L500.4050, L100.0100 #### [facility] [address] [place], [address] ALT [Catalytic activity/Vol] 23 U/L Normal 13-56 [facility] Comment on above: Order Comment: Order Date: 01/27/24 Order Info: [id number] - CMP Order Info: [id number] - MG Order Info: [id number] - TSH Performed By: #### L 501.9520, L501.5200, L500.4050, L100.0100 #### [facility] [address] [place], [address] AST [Catalytic activity/Vol] 28 U/L Normal 15-37 [facility] Comment on above: Order Comment: Order Date: 01/27/24 Order Info: [id number] - CMP Order Info: [id number] - MG Order Info: [id number] - TSH Performed By: #### L 501.9520, L501.5200, L500.4050, L100.0100 #### [facility] [address] [place], [place], [address] Bilirubin [Mass/Vol] 0.50 mg/dL Normal 0.20-1.00 [facility] Comment on above: Order Comment: Order Date: 01/27/24 Order Info: [id number] - CMP Order Info: [id number] - MG Order Info: [id number] - TSH Result Comment: For patients on eltrombopag therapy, use of Dimension Guinda TBIL is not recommended. Performed By: #### L 501.9520, L501.5200, L500.4050, L100.0100 #### [facility] [address] [place], [place], [id number] BUN/CRE 26.8 RATIO High 10-20 [facility] Comment on above: Order Comment: Order Date: 01/27/24 Order Info: 07-1 - CMP Order Info: [id number] - MG Order Info: [id number] - TSH Performed By: #### L 501.9520, L501.5200, L500.4050, L100.0100 #### [facility] [address] [place], [place], [id number] CA,Total 9.3 mg/dL Normal 8.5-10.1 [facility] Comment on above: Order Comment: Order Date: 01/27/24 Order Info: [id number] - CMP Order Info: [id number] - MG Order Info: 301-3 - TSH Performed By: #### L 501.9520, L501.5200, L500.4050, L100.0100 #### [facility] [address] [place], [place], [id number] Chloride [Moles/Vol] 105 mmol/L Normal 98-107 [facility] Comment on above: Order Comment: Order Date: 01/27/24 Order Info: [id number] - CMP Order Info: [id number] - MG Order Info: [id number] - TSH Performed By: #### L 501.9520, L501.5200, L500.4050, L100.0100 #### [facility] [address] [place], [address] CO2 [Moles/Vol] 28.0 mmol/L Normal 21.0-32.0 [facility] Comment on above: Order Comment: Order Date: 01/27/24 Order Info: [id number] - CMP Order Info: [id number] - MG Order Info: [id number] - TSH Performed By: #### L 501.9520, L501.5200, L500.4050, L100.0100 #### [facility] [address] [place], [address] Creatinine [Mass/Vol] 0.71 mg/dL Normal 0.55-1.02 [facility] Comment on above: Order Comment: Order Date: 01/27/24 Order Info: [id number] - CMP Order Info: [id number] - MG Order Info: [id number] - TSH Result Comment: The validity of the calculated GFR GFRAA in patients over 70 years has not been determined. Clinical correlation is essential. Performed By: #### L 501.9520, L501.5200, L500.4050, L100.0100 #### [facility] [address] [place], [address] EST GFR - AA 104 mL/min Normal >60 [facility] Comment on above: Order Comment: Order Date: 01/27/24 Order Info: [id number] - CMP Order Info: [id number] - MG Order Info: [id number] - TSH Result Comment: Afri can Citizen Of [place] GFR Calc Performed By: #### L 501.9520, L501.5200, L500.4050, L100.0100 #### [facility] [address] [place], [address] GAP 7 Normal 5-15 [facility] Comment on above: Order Comment: Order Date: 01/27/24 Order Info: [id number] - CMP Order Info: [id number] - MG Order Info: 3 - TSH Performed By: #### L 501.9520, L501.5200, L500.4050, L100.0100 #### [facility] [address] [place], [address] GFR/1.73 sq M.predicted among non-blacks MDRD (S/P/Bld) [Vol rate/Area] 86 mL/min/{1.73_m2} Normal >60 [facility] Comment on above: Order Comment: Order Date: 01/27/24 Order Info: [id number] - CMP Order Info: [id number] - MG Order Info: [id number] - TSH Result Comment: Non- GFR Calc Performed By: #### L 501.9520, L501.5200, L500.4050, L100.0100 #### [facility] [address] [place], [address] Globulin (S) [Mass/Vol] 3.6 g/dL Normal 2.2-4.2 [facility] Comment on above: Order Comment: Order Date: 01/27/24 Order Info: [id number] - CMP Order Info: [id number] - MG Order Info: [id number] - TSH Performed By: #### L 501.9520, L501.5200, L500.4050, L100.0100 #### [facility] [address] [place], [address] Glucose [Mass/Vol] 91 mg/dL Normal 74-106 [facility] Comment on above: Order Comment: Order Date: 01/27/24 Order Info: [id number] - CMP Order Info: [id number] - MG Order Info: [id number] - TSH Performed By: #### L 501.9520, L501.5200, L500.4050, L100.0100 #### [facility] [address] [place], [address] Potassium [Moles/Vol] 4.1 mmol/L Normal 3.5-5.1 [facility] Comment on above: Order Comment: Order Date: 01/27/24 Order Info: [id number] - CMP Order Info: [id number] - MG Order Info: [id number] - TSH Performed By: #### L 501.9520, L501.5200, L500.4050, L100.0100 #### [facility] [address] [place], [address] Sodium [Moles/Vol] 140 mmol/L Normal 136-145 [facility] Comment on above: Order Comment: Order Date: 01/27/24 Order Info: [id number] - CMP Order Info: [id number] - MG Order Info: 3 - TSH Performed By: #### L 501.9520, L501.5200, L500.4050, L100.0100 #### [facility] [address] [place], [address] T PROT 7.4 g/dL Normal 6.4-8.2 [facility] Comment on above: Order Comment: Order Date: 01/27/24 Order Info: [id number]- - CMP Order Info: [id number] - MG Order Info: 3 - TSH Performed By: #### L 501.9520, L501.5200, L500.4050, L100.0100 #### [facility] [address] [place], [address] Urea nitrogen [Mass/Vol] 19 mg/dL High - [facility] Comment on above: Order Comment: Order Date: 01/27/24 Order Info: [id number] - CMP Order Info: [id number] - MG Order Info: [id number] - TSH Performed By: #### L 501.9520, L501.5200, L500.4050, L100.0100 #### [facility] [address] [place], [address] Magnesiumon 01-27-2024 Magnesium [Mass/Vol] 2.1 mg/dL Normal 1.6-2.6 [facility] Comment on above: Order Comment: Order Date: 01/27/24 Order Info: [id number] - CMP Order Info: [id number] - MG Order Info: [id number] - TSH Performed By: #### L 501.9520, L501.5200, L500.4050, L100.0100 #### [facility] [address] [place], [place], [id number] Thyroid Stim Hormone (TSH)on 01-27-2024 TSH 2.06 uIU/mL Normal 0.358-3.74 [facility] Comment on above: Order Comment: Order Date: 01/27/24 Order Info: [id number] - CMP Order Info: [id number] - MG Order Info: [id number] - TSH Performed By: #### L 501.9520, L501.5200, L500.4050, L100.0100 #### [facility] [address], [place], [id number] Absolute lymphocyte countOrd ered By: Dr. Rizzo on 08-27-2022 Lymphocytes Auto (Unsp spec) [#/Vol] 1.74 10*3/uL 0.83-4.51 [facility] Basophil percentageOrdered B y: Dr. Rizzo on 08-27-2022 Basophils/100 WBC (Bld) 0.8 % 0-1 [facility] Bilirubin [Mass/Vol] 0.60 mg/dL 0.20-1.00 [facility] Comment on above: For patients on eltr ombopag therapy, use of Dimension Guinda TBIL is not recommended. Chloride [Moles/Vol] 106 mmol/L 98-107 [facility] Cholesterol [Mass/Vol] 204 mg/dL <200 [facility] Comment on above: <200 mg/dL Desirable 200-240 mg/dL Borderline >240 mg/dL High Risk Eosinophils/100 WBC (Bld) 1.9 % 0-5 [facility] Glucose [Mass/Vol] 85 mg/dL 74-106 [facility] Neutrophils (Bld) [#/Vol] 3.9 10*3/uL 2.0-7.7 [facility] Neutrophils/100 WBC (Bld) 61.2 % 47-70 [facility] Potassium [Moles/Vol] 3.6 mmol/L 3.5-5.1 [facility] Protein [Mass/Vol] 6.7 g/dL 6.4-8.2 [facility] Sodium [Moles/Vol] 142 mmol/L 136-145 [facility] Triglyceride [Mass/Vol] 48 mg/dL <199 [facility] Comment on above: The drugs N-Acetylcy steine and Metamizole may falsely depress this assay.Serum Triglycerides Reference Interval Normal <150 mg/dL Borderline high 150 - 199 mg/dL High 200 - 499 mg/dL Very High > or = 500 mg/dL WBC (Bld) [#/Vol] 6.3 10*3/uL 4.4-11.0 [facility] Blood erythrocytes count (nu mber/volume)Ordered By: Dr. Rizzo on 08-27-2022 RBC (Bld) [#/Vol] 4.15 10*6/uL 4.2-5.4 [facility] Blood hemoglobin measurement (mass/volume)Ordered By: Dr. Rizzo on 08-27-2022 Hemoglobin (Bld) [Mass/Vol] 13.3 g/dL 12.0-15.0 [facility] Blood lymphocytes/100 leukoc ytesOrdered By: Dr. Rizzo on 08-27-2022 Lymphocytes/100 WBC (Bld) 27.7 % 19-41 [facility] Blood monocytes/100 leukocyt esOrdered By: Dr. Rizzo on 08-27-2022 Monocytes/100 WBC (Bld) 8.1 % 0-10 [facility] Blood platelet mean volumeOr dered By: Dr. Rizzo on 08-27-2022 Platelet mean volume (Bld) [Entitic vol] 10.0 fL 6.2-12.0 [facility] Determination of erythrocyte mean corpuscular volume (MCV)Ordered By: Dr. Rizzo on 08-27-2022 MCV (RBC) [Entitic vol] 99.5 fL 81-99 [facility] Hematocrit Auto (Bld) [Volum e fraction]Ordered By: Dr. Rizzo on 08-27-2022 Hematocrit (Bld) [Volume fraction] 41.3 % 37-47 [facility] Laboratory - Chemistry and C hemistry - challengeOrdered By: Dr. Rizzo on 08-27-2022 ALP [Catalytic activity/Vol] 85 U/L 45-117 [facility] ALT [Catalytic activity/Vol] 20 U/L 13-56 [facility] CO2 [Moles/Vol] 29.0 mmol/L 21.0-32.0 [facility] Globulin (S) [Mass/Vol] 3.4 g/dL 2.2-4.2 [facility] Urea nitrogen/Creatinine [Mass ratio] 27.7 mg/mg 10-20 [facility] Laboratory - Hematology and Cell countsOrdered By: Dr. Rizzo on 08-27-2022 Erythrocyte distribution width (RBC) [Entitic vol] 44.5 fL 35.1-43.9 [facility] Erythrocyte distribution width (RBC) [Ratio] 11.9 % 11.6-14.6 [facility] Immature granulocytes/100 WBC (Bld) 0.300 % 0.0-0.9 [facility] Comment on above: IG% - Immature Granu locytes (promyelocytes, myelocytes and metamyelocytes) > 1% indicates that a LEFT SHIFT is Present. MCH (RBC) [Entitic mass] 32.0 pg 27.0-32.0 [facility] Nucleated RBC/100 WBC (Bld) [Ratio] 0 % 0-5 [facility] MCHC Auto (RBC) [Mass/Vol]Or dered By: Dr. Rizzo on 08-27-2022 MCHC (RBC) [Mass/Vol] 32.2 g/dL 32-36 [facility] No Panel InformationOrdered By: Dr. Rizzo on 08-27-2022 Estimated GFR (MDRD) Amer 116 mL/min >60 [facility] Comment on above: GFR Calc Estimated GFR (MDRD) Non-Af Amer 96 mL/min >60 [facility] Comment on above: Non- GFR Calc Thyroid Stimulating Hormone (TSH) 1.74 uIU/mL 0.358-3.74 [facility] Vitamin D 25-Hydroxy 14.4 ng/mL [facility] Comment on above: Vitamin D 25(OH) Sta tus Range Deficiency <20 ng/mL (50nmol/L) Insufficiency 20 - 30 ng/mL (50 - 75 nmol/L) Sufficiency 30 - 100 ng/mL (75 - 250 nmol/L) Toxicity >100 ng/mL (>250 nmol/L) Platelets bldOrdered By: Dr. Rizzo on 08-27-2022 Platelets (Bld) [#/Vol] 246 10*3/uL 150-450 [facility] Serum or plasma albumin rommel urement (mass/volume)Ordered By: Dr. Rizzo on 08-27-2022 Albumin [Mass/Vol] 3.3 g/dL 3.2-5.0 [facility] Serum or plasma albumin/glob ulin mass ratioOrdered By: Dr. Rizzo on 08-27-2022 Albumin/Globulin [Mass ratio] 1.0 {ratio} 0.9-2.4 [facility] Serum or plasma calcium rommel urement (mass/volume)Ordered By: Dr. Rizzo on 08-27-2022 Calcium [Mass/Vol] 8.9 mg/dL 8.5-10.1 [facility] Serum or plasma cholesterol in HDL measurement (mass/volume)Ordered By: Dr. Rizzo on 08-27-2022 Cholesterol in HDL [Mass/Vol] 101 mg/dL >40 [facility] Comment on above: The drugs N-Acetylcy steine and Metamizole may falsely depress this assay. Reference Range HDL <40 mg/dL Low HDL Cholesterol HDL >or= 60 mg/dL High HDL Cholesterol Serum or plasma cholesterol in VLDL measurement (mass/volume)Ordered By: Dr. Rizzo on 08-27-2022 Cholesterol in VLDL [Mass/Vol] 10 mg/dL 5-40 [facility] Serum or plasma creatinine m easurement (mass/volume)Ordered By: Dr. Rizzo on 08-27-2022 Creatinine [Mass/Vol] 0.65 mg/dL 0.55-1.02 [facility] Comment on above: The validity of the calculated GFR & GFRAA in patients over 70 years has not been determined. Clinical correlation is essential. Serum or plasma low density lipoprotein (LDL) cholesterol measurement (mass/volume)Ordered By: Dr. Rizzo on 08-27-2022 Cholesterol in LDL [Mass/Vol] 93 mg/dL 0-130 [facility] Serum or plasma urea nitroge n measurement (mass/volume)Ordered By: Dr. Rizzo on 08-27-2022 Urea nitrogen [Mass/Vol] 18 mg/dL 7-18 [facility] Thin prep Papanicolaou smear with manual screeningOrdered By: Dr. Rizzo on 08-27-2022 Thin prep Papanicolaou smear with manual screening 22 U/L 15-37 [facility] Thin prep Papanicolaou smear with manual screening 7 5-15 [facility] Laboratory - Microbiology an d Antimicrobial susceptibilityon 04-11-2022 SARS-CoV-2 (COVID-19) RNA JOSÉ LUIS+probe Ql (Unsp spec) Not detected [facility] Work Phone: No Panel Informationon 04-11 Influenza Types A,B Rapid (Clinic) Not detected [facility] Work Phone: Vital Signs Date Time Vital Sign Value Performing Clinician Faci lity 01-03-2025 08:01-0400 Body height 165.[address] Cris Rizzo MD Work Phone: [facility] 01-03-2025 08:01-0400 Body mass index (BMI) [Ratio] 32.9 kg/m2 Dr. Cris Rizzo MD Work Phone: [facility] 01-03-2025 08:01-0400 Body temperature 97 [degF] Dr. Cris Rizzo MD Work Phone: [facility] 01-03-2025 08:01-0400 Body weight 89.[address] Cris Rizzo MD Work Phone: [facility] 01-03-2025 08:01-0400 Diastolic blood pressure 77 mm[Hg] Dr. Cris Rizzo MD Work Phone: [facility] 01-03-2025 08:01-0400 Heart rate 67 /min Dr. Cris Rizzo MD Work Phone: [facility] 01-03-2025 08:01-0400 Respiratory rate 16 /min Dr. Cris Rizzo MD Work Phone: [facility] 01-03-2025 08:01-0400 SaO2% (BldA) [Mass fraction] 97 % Dr. Cris Rizzo MD Work Phone: [facility] 01-03-2025 08:01-0400 Systolic blood pressure 116 mm[Hg] Dr. Cris Rizzo MD Work Phone: [facility] 12-11-2024 [id number] Body height 164.2 cm Pulm Wstr Work Phone: [facility] 12-11-2024 13:11-0400 Body mass index (BMI) [Ratio] 34.15 kg/m2 Pulm Wstr Work Phone: [facility] [id number] Body weight 92.08 kg Pulm Wstr Work Phone: [facility] 12-11-2024 13:11-0400 Heart rate 75 /min Pulm Wstr Work Phone: [facility] 12-11-2024 13:11-0400 Respiratory rate 16 /min Pulm Wstr Work Phone: [facility] 12-11-2024 13:11-0400 SaO2% (BldA) [Mass fraction] 96 % Pulm Wstr Work Phone: [facility] 10-24-2024 12:43-0400 Body height 165.1 cm Belgica Mclain MD Work Phone: [facility] 10-24-2024 12:43-0400 Body mass index (BMI) [Ratio] 33.79 kg/m2 Belgica Mclain MD Work Phone: [facility] 10-24-2024 12:43-0400 Body temperature 97 [degF] Belgica Mclain MD Work Phone: [facility] 10-24-2024 12:43-0400 Body weight 92.1 kg Belgica Mclain MD Work Phone: [facility] 10-24-2024 12:43-0400 Diastolic blood pressure 76 mm[Hg] Belgica Mclain MD Work Phone: [facility] 10-24-2024 12:43-0400 Heart rate 76 /min Belgica Mclain MD Work Phone: [facility] 10-24-2024 12:43-0400 Respiratory rate 18 /min Belgcia Mclain MD Work Phone: [facility] 10-24-2024 12:43-0400 SaO2% (BldA) [Mass fraction] 96 % Belgica Mclain MD Work Phone: [facility] 10-24-2024 12:43-0400 Systolic blood pressure 113 mm[Hg] Belgica Mclain MD Work Phone: [facility] 09-05-2024 12:35-0500 Body mass index (BMI) [Ratio] 33.71 kg/m2 Yoselyn Alvarado MD Work Phone: [facility] 09-05-2024 12:35-0500 Body weight 91.9 kg Yoselyn Alvarado MD Work Phone: [facility] 09-05-2024 12:35-0500 Diastolic blood pressure 73 mm[Hg] Yoselyn Alvarado MD Work Phone: [facility] 09-05-2024 12:35-0500 Heart rate 78 /min Yoselyn Alvarado MD Work Phone: [facility] 09-05-2024 12:35-0500 SaO2% (BldA) [Mass fraction] 96 % Yoselyn Alvarado MD Work Phone: [facility] 09-05-2024 12:35-0500 Systolic blood pressure 117 mm[Hg] Yoselyn Alvarado MD Work Phone: [facility] 04-11-2022 10:46-0400 Body height 165.[address] Cris Rizzo Work Phone: [facility] Work Phone: 04-11-2022 10:46-0400 Body mass index (BMI) [Ratio] 30.9 kg/m2 Dr. Cris Rizzo Work Phone: [facility] Work Phone: 04-11-2022 10:46-0400 Body temperature 97.8 [degF] Dr. Cris Rizzo Work Phone: [facility] [facility] Work Phone: 04-11-2022 10:46-0400 Body weight 84.[address] Cris Rizzo Work Phone: [facility] Work Phone: 04-11-2022 10:46-0400 Diastolic blood pressure 78 mm[Hg] Dr. Cris Rizzo Work Phone: [facility] Work Phone: 04-11-2022 10:46-0400 Heart rate 62 /min Dr. Cris Rizzo Work Phone: [facility] Work Phone: 04-11-2022 10:46-0400 Respiratory rate 14 /min Dr. Cris Rizzo Work Phone: [facility] Work Phone: 04-11-2022 10:46-0400 SaO2% (BldA) [Mass fraction] 97 % Dr. Cris Rizzo Work Phone: [facility] Work Phone: 04-11-2022 10:46-0400 Systolic blood pressure 134 mm[Hg] Dr. Cris Rizzo Work Phone: [facility] Work Phone: Encounters Encounter Date Encounter Type Care Provider Facility Start: 01-03-2025 End: 01-03-[address] Mayito Alvarado DO [facility] Work Phone: Start: 01-03-2025 End: 01-03-[address] Cris Rizzo MD Work Phone: [facility] Work Phone: Start: 12-19-2024 End: 12-19-2024 ambulatory SANJANA ROSENBAUM Facility:[facility] Start: 12-18-2024 End: 12-18-2024 ambulatory BELGICA MCLAIN Facility:[facility] Start: 12-18-2024 End: 12-18-2024 ambulatory Kristie Costa [facility] Work Phone: [place] Comment on above: Interstitial lung di sease (HCC) (Primary Dx); ILD (interstitial lung disease) (HCC); Family history of pulmonary fibrosis; Whitfield hair; Family history of pancreatic cancer; Family history of breast cancer; Family history of kidney cancer; Family history of interstitial lung disease; Lung transplant candidate Start: 12-18-2024 End: 12-18-2024 Telemedicine consultation with patient Kristie Costa [facility] Work Phone: [place] Start: 12-11-2024 End: 12-11-2024 Patient encounter procedure [facility] Work Phone: [facility] Start: 12-11-2024 End: 12-11-2024 ambulatory [facility] Work Phone[facility] Comment on above: Spirometry Start: 10-26-2024 End: 10-26-[address] Cris Rizzo MD -Sleep Lab Work Phone: Start: 10-26-2024 End: 10-26-2024 ambulatory Cris Rizzo Facility:[facility] Start: 10-24-2024 End: 10-24-2024 ambulatory BELGICA MCLAIN Facility:[facility] Start: 10-24-2024 End: 10-24-2024 Office outpatient visit 40 minutes Belgica Mclain MD Work Phone: Pulmonary Medicine Comment on above: ILD (interstitial herman ng disease) (HCC) (Primary Dx); Chronic cough; Gastroesophageal reflux disease without esophagitis; Family history of pulmonary fibrosis; Whitfield hair Start: 10-05-2024 End: 10-05-2024 Telephone encounter Belgica Mclain MD Work Phone: Pulmonary Medicine Comment on above: Request Outside Medi zari Records (PFTs ) Start: 10-03-2024 End: 10-03-2024 Telephone encounter Klarissa Pineda RN Pulmonary Medicine Comment on above: New ILD Start: 09-27-2024 End: 09-27-2024 Orders Only Yoselyn Alvarado MD Work Phone: Pulmonary Medicine Comment on above: ILD (interstitial herman ng disease) (HCC) (Primary Dx) Orders Start: 09-22-2024 End: 09-27-2024 ambulatory Yoselyn Alvarado MD Work Phone: Pulmonary Medicine Comment on above: Blood work Start: 09-22-2024 End: 09-27-2024 E-mail encounter from caregiver Yoselyn Alvarado MD Work Phone: Pulmonary Medicine Start: 09-13-2024 Non-patient / Non-visit Dr. González samuels MD -[facility] Start: 09-13-2024 End: 09-13-[address] Cris Rizzo MD Work Phone: [facility] Work Phone: Start: 09-13-2024 End: 09-13-[address] Jayme Velazquez MD -Cardiovascular Services Work Phone: Start: 09-13-2024 End: 09-13-2024 ambulatory Cris Rizzo Facility:[facility] Start: 09-05-2024 End: 09-05-2024 ambulatory CRIS RIZZO Facility:[facility] Start: 09-05-2024 End: 09-05-2024 Patient encounter procedure Yoselyn Alvarado MD Work Phone: Pulmonary Medicine Comment on above: ILD (interstitial herman ng disease) (HCC) (Primary Dx); Chronic cough Start: 08-16-2024 End: 08-16-[address] Cris Rizzo MD -Pulmonary Services/Neurology Work Phone: Start: 08-16-2024 End: 08-16-2024 ambulatory Cris Rizzo Facility:[facility] Start: 08-15-2024 End: 08-15-[address] Cris Rizzo MD -Cat Scan, [facility] Work Phone: Start: 08-15-2024 End: 08-15-2024 ambulatory Cris Rizzo Facility:[facility] Start: 08-04-2024 End: 08-04-[address] [facility] Start: 08-04-2024 End: 08-04-2024 ambulatory Cris Rizzo Facility:[facility] Start: 06-21-2024 End: 06-21-[address] Cris Rizzo MD Work Phone: [facility] Work Phone: Start: 06-21-2024 End: 06-21-2024 Patient encounter procedure Kae [employer]-C -Outpatient Bone Densitometry Work Phone: Start: 06-21-2024 End: 06-21-2024 ambulatory KM LINDER Facility:[facility] Start: 04-28-2024 End: 04-28-2024 ambulatory Cris Rizzo Facility:[facility] Start: 01-27-2024 End: 01-27-2024 ambulatory Cris [place] Facility:[facility] Start: 10-19-2022 End: 10-19-2022 ambulatory [facility] Work Phone: Start: 10-19-2022 End: 10-19-2022 Patient encounter procedure [facility]-Laboratory Start: 08-27-2022 End: 08-27-2022 ambulatory [facility] Work Phone: Start: 08-27-2022 End: 08-27-2022 Patient encounter procedure [facility] Start: 06-11-2022 End: 06-11-[address] Cris Rizzo Work Phone: [facility] Work Phone: Start: 06-11-2022 End: 06-11-[address] Cris Rizzo Work Phone: [facility]-Physical Therapy Start: 04-11-2022 End: 04-11-[address] Cris Rizzo Work Phone: [facility] Start: 03-23-2017 End: 03-24-2017 Ambulatory ROBERTO OTDD Facility:[facility] Procedures Date Procedure Procedure Detail Performing Clinician Start: 12-11-2024 Brncdilat rspse spmt ry pre&post-brncdilat admn Belgica Mclain MD Work Phone: Start: 08-15-2024 CT of chest without contrast Dr. Cris Rizzo MD Work Phone: Start: 08-04-2024 X-ray of chest, PA a nd lateral views Dr. Cris Rizzo MD Work Phone: Start: 06-21-2024 Dual energy X-ray absorptiometry Dr. Cris Rizzo MD Work Phone: Start: 06-21-2024 Screening mammography Ricardo Rizzo MD Work Phone: Start: 02-27-2019 Colonoscopy Yoselyn Alvarado MD Work Phone: Start: 05-31-2015 Lipid 1996 panel - S cory or Plasma Yoselyn Alvarado MD Work Phone: Plan of Treatment Date Care Activity Detail Author Start: 08-06-2032 Urine microalbumin profile DTaP,Tdap,Td Vaccine (4 - Td or Tdap) [facility] Start: 08-15-2027 Screening for malignant neoplasm of colon Cologuard (FIT-DNA) [facility] Start: 02-12-2025 End: 02-12-2025 ambulatory 02/12/2025 9:30 AM EDT Visit (SP) Office [facility] [address] [place] [address] Kristie Costa [address] [place] [address] If I qualify for immunosuppressant therapy [facility] Comment on above: If I qualify for immunosuppressant thera py Start: 02-02-2025 End: 02-02-2025 Patient encounter procedure 02/02/2025 1:00 PM EDT Office Visit Pulmonary Medicine [address] [place] [id number] Belgica Mclain MD [address] [place] [address] ILD (interstitial lung disease) (HCC) [J84.9] Pulmonary Medicine Comment on above: ILD (interstitial lung disease) (HCC) [J 84.9] Start: 01-23-2025 End: 11-23-2025 CT Chest WO contrast CT CHEST WO IVCON Radiology Routine ILD (interstitial lung disease) (HCC) Expected: 01/23/2025, Expires: 11/23/2025 [facility] Comment on above: Expected: 01/23/2025, Expires: Start: 01-23-2025 End: 01-23-2025 Patient encounter procedure 01/23/2025 9:20 AM EDT Appointment Cat Scan [address] [place], [place] [id number] ILD (interstitial lung disease) (HCC) [J84.9] Cat Scan Comment on above: ILD (interstitial lung disease) (HCC) [J 84.9] Start: 12-19-2024 End: 03-20-2025 [facility] SEND OUT TST 1 [facility] Comment on above: Expected: 12/19/2024, Expires: Start: 12-19-2024 End: 03-20-2025 TELOMERE LENGTH MEASUREMENT [facility] Work Phone: Comment on above: Expected: 12/19/2024, Expires: Start: 12-18-2024 End: 12-18-2024 ambulatory 12/18/2024 11:30 AM EDT Visit (SP) Office [facility] [address] [place] [address] Kristie Costa, [facility] [address] [place] [address] ILD/STS - Moved up from February per Kristie [facility] Comment on above: ILD/STS - Moved up from February per Kristie Start: 12-11-2024 End: 12-11-2024 ambulatory [facility] Comment on above: Dyspnea and respiratory abnormalities [R 06.00, R06.89] Start: 11-15-2024 Covid-19 Vaccine ( season) Covid-19 Vaccine () [facility] Start: 10-24-2024 End: 10-24-2024 Patient encounter procedure 10/24/2024 1:00 PM EDT Office Visit Pulmonary Medicine [address] [place] [address] Belgica Mclain MD [address] [place] [address] [place] [id number] ILD Pulmonary Medicine Comment on above: ILD Start: 09-05-2024 End: 12-05-2024 LEWIS BY IFA SCREEN [facility] Comment on above: Expected: 09/05/2024, Expires: Start: 09-05-2024 End: 12-05-2024 ANTI NEUTRO CYTO AB [facility] Comment on above: Expected: 09/05/2024, Expires: Start: 09-05-2024 End: 12-05-2024 Cyclic citrullinated peptide IgG Ab [Units/volume] in Serum or Plasma [facility] Comment on above: Expected: 09/05/2024, Expires: Start: 09-05-2024 End: 12-05-2024 DNA ANTIBODY DS BLD [facility] Comment on above: Expected: 09/05/2024, Expires: Start: 09-05-2024 End: 12-05-2024 Extractable nuclear Ab panel - Serum [facility] Comment on above: Expected: 09/05/2024, Expires: Start: 09-05-2024 End: 12-05-2024 HYPERSEN PNEUMON AB [facility] Work Phone: Comment on above: Expected: 09/05/2024, Expires: Start: 09-05-2024 End: 12-05-2024 HYPERSENSITIVITY PNEUMONITIS EVALUATION [facility] Comment on above: Expected: 09/05/2024, Expires: Start: 09-05-2024 End: 12-05-2024 POLYMYOSITIS AND DERMATOMYOSITIS PANEL [facility] Comment on above: Expected: 09/05/2024, Expires: Start: 09-05-2024 End: 12-05-2024 Rheumatoid factor [Units/volume] in Serum or Plasma [facility] Comment on above: Expected: 09/05/2024, Expires: Start: 09-05-2024 End: 12-05-2024 RNA POLYMERASE III AB [facility] Comment on above: Expected: 09/05/2024, Expires: Start: 08-16-2024 Screening for malignant neoplasm of colon Colorectal Cancer Screening [facility] Start: 07-12-2024 Advance Directive Discussion Advance Directive Discussion [facility] Start: 02-28-2024 Screening for malignant neoplasm of colon Colonoscopy [facility] Start: 10-19-2022 Procedure [facility] Start: 04-19-2021 Screening for malignant neoplasm of breast Mammogram Screening [facility] Start: 05-31-2020 Lipid panel Lipid Screening [facility] Start: 12-16-2019 Diabetes Screening Diabetes Screening [facility] Start: 09-09-2017 Medicare Annual Wellness Visit Medicare Annual Wellness Visit [facility] Start: 2002 Shingrix Vaccine (1 of 2) Shingrix Vaccine (1 of 2) [facility] Start: 1997 Screening for malignant neoplasm of colon [facility] Start: 1970 Anxiety Screening Anxiety Screening [facility] Start: 1970 Depression Screening Depression Screening [facility] End: 11-02-2025 LUNG DIFFUSION CAPACITY (DLCO) LUNG DIFFUSION CAPACITY (DLCO) PFT Routine ILD (interstitial lung disease) (HCC) 1 Occurrences starting 10/03/2024 until 11/02/2025 [facility] Comment on above: 1 Occurrences starting 10/03/2024 until 11/02/2025 End: 11-23-2025 LUNG DIFFUSION CAPACITY (DLCO) LUNG DIFFUSION CAPACITY (DLCO) PFT Routine ILD (interstitial lung disease) ([facility]) 1 Occurrences starting 10/24/2024 until 11/23/2025 [facility] Work Phone: Comment on above: 1 Occurrences starting 10/24/2024 until 11/23/2025 Patient referral [facility] Work Phone: End: 11-23-2025 SPIROMETRY - BASELINE AND POST DILATOR SPIROMETRY - BASELINE AND POST DILATOR PFT Routine ILD (interstitial lung disease) ([facility]) 1 Occurrences starting 10/24/2024 until 11/23/2025 [facility] Comment on above: 1 Occurrences starting 10/24/2024 until 11/23/2025 End: 11-02-2025 SPIROMETRY WITH DILATOR IF OBSTRUCTED SPIROMETRY WITH DILATOR IF OBSTRUCTED PFT Routine ILD (interstitial lung disease) ([facility]) 1 Occurrences starting 10/03/2024 until 11/02/2025 [facility] Work Phone: Comment on above: 1 Occurrences starting 10/03/2024 until 11/02/2025 Immunizations Immunization Date Immunization Notes Care Provider [facility] 09-14-2020 COVID-19 original vaccine, age 12+ yr, monovalent (PFIZER-BIONTECH - PURPLE TOP) Yoselyn Alvarado MD Work Phone: [facility] 08-24-2020 COVID-19 original vaccine, age 12+ yr, monovalent (PFIZER-BIONTECH - PURPLE TOP) Yoselyn Alvarado MD Work Phone: [facility] 04-19-2020 influenza (HD-IIV4) vaccine, age 65+ yr, high dose, quadrivalent, PF (FLUZONE HIGH-DOSE) Yoselyn Alvarado MD Work Phone: [facility] 03-06-2020 pneumococcal polysaccharide vaccine, 23 valfederico Alvarado MD Work Phone: [facility] 04-11-2019 Influenza, injectabl e, Madin Gracie Canine Kidney, preservative free, quadrivalent Yoselyn Alvarado MD Work Phone: [facility] 02-10-2019 pneumococcal conjuga te vaccine, 13 valent Yoselyn Alvarado MD Work Phone: [facility] 05-16-2018 Seasonal trivalent influenza vaccine, adjuvanted, preservative free Yoselyn Alvarado MD Work Phone: [facility] 05-27-2017 Influenza, injectabl e, Madin Gracie Canine Kidney, preservative free, quadrivalent Yoselyn Alvarado MD Work Phone: [facility] 05-27-2017 influenza, seasonal, injectable Yoselyn Alvarado MD Work Phone: [facility] 06-21-2015 tetanus toxoid, redu zaid diphtheria toxoid, and acellular pertussis vaccine, adsorbed Yoselyn Alvarado MD Work Phone: [facility] 10-21-2010 tuberculin skin test ; purified protein derivative solution, intradermal Yoselyn Alvarado MD Work Phone: [facility] 03-30-2006 tetanus toxoid, redu zaid diphtheria toxoid, and acellular pertussis vaccine, adsorbed Yoselyn Alvarado MD Work Phone: [facility] Payers Date Payer Category Payer Private Health Insurance [facility] Member Subscriber Plan / Payer (Effective 2024-Present) Name: Rubi Mejia Relation to Subscriber: Self Name: Rubi Mejia Payer ID: [id number] (NAIC) Group ID: Not on file Type: [employer] Address: [facility] [address] [place] [id number] 2024 Unknown [id number] 2024 Self-pay [id number] 2024 Unknown [id number] 2017 Medicare MEDICARE [id number] 2017 Medicare [id number] Private Health Insurance [facility] [id number] Unknown Unknown [id number] Unknown [id number] Unknown [id number] Unknown [id number] Unknown [id number] Unknown [id number] Unknown [id number] Unknown [id number] Unknown [id number] Unknown [id number] Unknown [id number] Social History Date Type Detail Facility [facility] if ever smoked [facility] Work Phone: Start: 1950 Sex Assigned At Female [facility] Start: 09-05-2024 [facility] Never smoked tobacco [facility] Start: 09-05-2024 Tobacco use and exposure Smoke less tobacco non-user [facility] Start: 09-05-2024 End: 12-21-2024 Alcoholic beverage intake Current drinker of alcohol (finding) [facility] Start: 03-04-2020 End: 09-05-2024 History of Social function [facility] Start: 03-04-2020 End: 09-05-2024 Social connection and isolation panel [facility] Do you belong to any clubs or organizations such as islam groups, unions, fraternal or athletic groups, or school groups? Yes [facility] Are you now , , , , never or living with a partner? [facility] How often to you hav e a drink containing alcohol? 4 or more times a week [facility] How many standard dr inks containing alcohol do you have on a typical day? 1 or 2 [facility] How often do you hav e 6 or more drinks on 1 occasion? Never [facility] How hard is it for y ou to pay for the very basics like food, housing, medical care, and heating Not hard at all [facility] Do you feel stress - tense, restless, nervous, or anxious, or unable to sleep at night because your mind is troubled all the time - these days [OSQ] Only a little [facility] (I/We) worried ayan er (my/our) food would run out before (I/we) got money to buy more. Never true [facility] In the past 12 month s, was there a time when you were not able to pay the mortgage or rent on time? No [facility] Start: 03-04-2020 Education 18 [facility] Start: 02-10-2019 Alcohol Comment social- 3-4 gl asses wine a week [facility] Start: 02-07-2019 Gender identity Identifies as female gender (finding) [facility] Start: 02-07-2019 Sexual orientation Homosexual (findi ng) [facility] Tobacco smoking stat us [facility] Unknown if ever smoked [facility] Work Phone: Start: 09-24-2024 End: 10-16-2024 Sex Female (finding) [facility] Start: 01-03-2025 Tobacco smoking stat us [facility]IS Ex-smoker (finding) [facility] Clinical Notes 09-05-2024 to 12-18-2024 Kristie Costa LGC - 12/18/2024 11:30 AM EDTPatient Beligca Dove MD - 10/24/2024 1:00 PM EDTTelephone Encounter - Carlos Ambrocio RN - 10/05/2024 12:10 PM EDT Note Date & Type Note Facility 12-18-2024 History of Presen t illness Narrative Images from the original note were not included. [facility] Department of Medical Genetics [facility] Consultation Note Genetic Counselor: Kristie Costa, [facility] Patient: Rubi Mejia This visit was conducted via [employer]. I have communicated my name and active licensure. The patient's identity and physical location were verified at the time of this visit. Either the patient or their legal key account representative has been informed of the risks and benefits of -- and alternatives to -- treatment through a remote evaluation and consents to proceed with the evaluation remotely. HIGH LEVEL SUMMARY: The patient's personal and family history is potentially suggestive of a hereditary short telomere syndrome. Her family history is also potentially suggestive of a hereditary cancer syndrome. The patient provided informed consent for Custom Pulmonary Fibrosis, Multi-Cancer, and Leukemia/MDS panel plus preliminiary evidence genes through [employer]. Results are expected in 3-4 weeks pending lab receipt of sample. IDENTIFICATION AND CHIEF COMPLAINT: Dr. Belgica Mclain requested a consultation for genetic counseling and risk assessment in the [facility] for Rubi Mejia, a 74 year old female, for discussion of her personal and family history of pulmonary fibrosis/interstitial lung disease. She presents to clinic today to discuss the possibility of a hereditary short telomere syndrome, and to further clarify her risks, as well as her family members' risks. HISTORY OF PRESENT ILLNESS: Rubi Mejia is a 74 year old female with past medical history of interstitial lung disease (ILD) diagnosed in August 2024. Regarding exposures, the patient reports that she drank furniture vincentian at age 4 w/ aspiration which caused pneumonia requiring oxygen supplementation. She also reports living with birds for ~20 years and had a brief history of smoking in her early 20s (~2 years of light/social smoking). She also had some exposure to second hand smoke in the home growing up (father smoked). Her family history is significant for idiopathic pulmonary fibrosis in her father, paternal aunt, and paternal cousin. Additional family history details are listed below. Short Telomere Syndrome Review of Systems: Premature whitfield hair (before age 25)? No Pulmonary fibrosis, emphysema, or other lung disease? Yes - patient, father, paternal aunt, and paternal cousin all with idiopathic pulmonary fibrosis/interstitial lung disease. Nail dysplasia? Brother w/ severe ingrown toenails requiring surgery, patient reports some vertical ridges in fingernails. Skin pigment abnormalities? No Oral Leukoplakia? No Osteoporosis, scoliosis, or aseptic necrosis? No Short stature? No Dental caries or loss? No Esophageal stricture? No Sparse eyelashes or epiphora (excessive tears not draining properly)? No Hyperhidrosis? No Head and neck, cervical, and/or anal cancer? None known. Unexplained cytopenias, macrocytosis, bone marrow failure/aplastic anemia, MDS, and/or AML? No Liver cirrhosis or fibrosis? No Raynaud's? Yes, patient's daughter. Cerebellar hypoplasia? No, but youngest child has epilepsy. Hypogonadism? No Microcephaly? No Urethral stricture or phimosis? No Deafness? No Developmental delay? Possible in patient's brother though unconfirmed. Autoimmunity? No PAST MEDICAL HISTORY Diagnosis Date Acid reflux Questionable Environmental allergies Hypertension Palpitations Paroxysmal supraventricular tachycardia (HCC) PAST SURGICAL HISTORY Procedure Laterality Date ANKLE SURGERY HX Right 01/24/2015 x2 COLONOSCOPY FLX DX W/COLLJ SPEC WHEN PFRMD 02/27/2019 Colonoscopy PAST SURGICAL HISTORY OF 1986 ectopic SOCIAL HISTORY: Social History Tobacco Use Smoking status: Never Smokeless tobacco: Never Vaping Use Vaping status: Never Used Substance Use Topics Alcohol use: Yes Comment: social- 3-4 glasses wine a week Drug use: No FAMILY HISTORY: We obtained a detailed, 4-generation family history. Significant diagnoses are listed below: FAMILY HISTORY Problem Relation Age of Onset Skin Cancer Mother BCC, SCC and melanoma Breast Cancer Mother 60 - 69 s/p double mastectomy Cervical Cancer Mother 30 - 39 Pancreatic Cancer Mother 85 - 86 Idiopathic pulmonary fibrosis (HCC) Father 64 sinus and ongoing cough all of adult life. ~6 months after Dx. other (Heart Attack) Brother Pulmonary hypertension (HCC) Brother Coronary Artery Disease Brother CABG other (CHF) Brother Open Heart Surgery other (A-Fib) Brother had ablation to treat Kidney Cancer Maternal Grandmother Pancreatic Cancer Maternal Grandfather Cancer Paternal Grandmother +TOB, heavy smoker Incontinentia pigmenti Child Idiopathic pulmonary fibrosis (HCC) Paternal Aunt 60 - 69 No TOB Breathing difficulty Paternal cousin Idiopathic pulmonary fibrosis (HCC) Paternal cousin 60 - 65 No TOB The patient's maternal ancestors are of descent and paternal ancestors are of descent. There is no Ashkenazi Baptism ancestry. There is no known consanguinity. Heme/Onc Genetics 12/18/24 A copy of the patient's pedigree will be available under the scanned documents tab following today's visit. GENETIC COUNSELING RISK ASSESSMENT, DISCUSSION, AND SUGGESTED FOLLOW UP: We reviewed the natural history, genetic etiology, and inheritance for pulmonary fibrosis/interstitial lung disease. We also reviewed the natural history and genetic etiology of sporadic, familial and hereditary cancer syndromes. Rubi's personal history of ILD/IPF and family history of pulmonary fibrosis in multiple relatives is suggestive of a short telomere syndrome and family meets criteria for familial pulmonary fibrosis. Familial pulmonary fibrosis (FPF) is defined as idiopathic interstitial pneumonia in two or more first-degree relatives (siblings, children, parents). Individuals with FPF usually present between ages 50 and 70. Current research suggests that around 20-30% of those with familial pulmonary fibrosis will have an identifiable underlying short telomere syndrome. The patient meets NCCN genetic testing criteria for hereditary myeloid malignancy predisposition syndromes based on her personal history of clinically suspected genetic predisposition syndrome.. Familial Pulmonary Fibrosis & Inherited Predisposition to IPF Idiopathic pulmonary fibrosis (IPF) is a chronic, progressive lung disease. This condition causes scar tissue (fibrosis) to build up in the lungs, which makes the lungs unable to transport oxygen into the bloodstream effectively. The most common signs and symptoms of idiopathic pulmonary fibrosis are shortness of breath and a persistent dry cough. Many affected individuals also experience a loss of appetite and gradual weight loss. Some people with idiopathic pulmonary fibrosis develop widened and rounded tips of the fingers and toes (known as clubbing) resulting from a shortage of oxygen. These features are relatively nonspecific and not everyone with these health problems has idiopathic pulmonary fibrosis. Other respiratory diseases, some of which are less serious, can cause similar signs and symptoms. It is relatively common for idiopathic pulmonary fibrosis to be initially misdiagnosed as another respiratory or cardiovascular condition. Idiopathic pulmonary fibrosis belongs to a group of conditions called interstitial lung diseases (ILD) or interstitial pneumonia (IP), which describes lung diseases that involve inflammation or scarring in the lung. In most cases, idiopathic pulmonary fibrosis occurs in only one person in a family. These cases are described as sporadic. When two or more members within the same family have idiopathic pulmonary fibrosis or idiopathic ILD/IP, this is called familial pulmonary fibrosis or familial interstitial pneumonia. About 10-20 percent of individuals with idiopathic pulmonary fibrosis have familial pulmonary fibrosis. The specific types or diagnoses of interstitial lung disease can vary amongst family members in one family with familial pulmonary fibrosis. Exposures such as cigarette smoking can increase the risk for developing lung disease for those at risk for familial pulmonary fibrosis. The cause of idiopathic pulmonary fibrosis is unknown, although the disease probably results from a combination of genetic and environmental factors. It is likely that genetic changes increase a person's risk of developing idiopathic pulmonary fibrosis, and then exposure to certain environmental factors triggers the disease. Familial pulmonary fibrosis appears to have an autosomal dominant pattern of inheritance. Autosomal dominant inheritance means one copy of an altered gene in each cell is sufficient to cause the disorder. However, some people who inherit the altered gene never develop features of familial pulmonary fibrosis- a phenomenon known as reduced penetrance. It is unclear why some people with a disease-causing variant develop the disease and other people with the disease-causing variant do not. Short Telomere Syndromes The most common hereditary cause of familial idiopathic pulmonary fibrosis are short telomere syndromes (telomere biology disorders). Short telomere syndromes are caused by abnormally short telomeres, which are the protective ends of chromosomes. When telomeres become abnormally short, cells can no longer divide effectively. Telomeres naturally shorten with age. In short telomere syndromes, mutations in genes important for telomere maintenance lead to a faster rate of telomere shortening and abnormally short telomeres. Short telomere syndromes are hereditary conditions that can cause bone marrow failure, lung fibrosis and liver fibrosis. Individuals with short telomere syndromes also have an increased risk for leukemia and less commonly, solid tumors - mainly squamous cell carcinoma of the head and neck or anogenital regions. Symptoms of telomere syndromes vary in severity and can depend on telomere length. Some individuals with short telomeres experience symptoms as a child, some develop symptoms as an adult, and some have few or no symptoms. In ~20 - 60 percent of individuals with short telomeres and in ~80 percent of individuals with features of a familial short telomere syndrome, a genetic mutation is identified as the cause of short telomeres. In some cases, inherited mutations are not identified for an affected family, even when short telomeres are found for multiple family members. Because a mutation is not always identified, telomere syndromes are diagnosed in individuals who have a combination of abnormally short telomeres along with specific clinical features. The patient's family history is also potentially suggestive of a hereditary cancer syndrome. The patient meets NCCN HBOC testing criteria since her mother had a personal history of pancreatic cancer and breast cancer. Inheritance of hereditary cancer syndromes was discussed with the patient. We discussed that identification of a hereditary short telomere syndrome and/or a hereditary cancer syndrome for the patient may help their providers tailor medical management. It would also allow for the determination of recurrence risks for family members. If a mutation is not found for the patient, this will decrease the likelihood of a hereditary short telomere syndrome as the explanation for the patient's personal and family history of ILD. However, it cannot completely rule out this possibility. A negative result would also decrease the likelihood of a hereditary cancer syndrome for the patient, however it cannot rule it out as the explanation for the family history of cancer. Genetic testing is recommended for Rubi based on her personal and family history of ILD/IPF and her family history of cancer. The patient was offered Custom Pulmonary Fibrosis, Multi-Cancer, and Leukemia/MDS panel plus preliminiary evidence genes through [facility] and telomere length analysis via flow FISH through [facility]. After reviewing the testing options, the patient elected to pursue germline genetic testing via Custom Pulmonary Fibrosis, Multi-Cancer, and Leukemia/MDS panel plus preliminiary evidence genes through [facility] and telomere length analysis via flow FISH through [facility]. The Custom Pulmonary Fibrosis panel through [facility] includes the following 27 genes: ABCA3, ACD, CISD2, CSF2RA, CSF2RB, CTC1, DKC1, PIZGP4M, NAF1, NHP2, NKX2-1, NOP10, PARN, POT1, RTEL1, SFTPB, SFTPC, LYE82G7, SLC7A7, SMPD1, STAT3, STN1, TERC, TERT, TINF2, WRAP53, ZCCHC8. The Custom Multi-Cancer Panel and Hereditary Myelodysplastic Syndrome/Leukemia Panel through [employer] includes the following 96 genes: AIP, ALK, ANKRD26, APC, RAY, AXIN2, BAP1, BARD1, BLM, BMPR1A, BRCA1, BRCA2, BRIP1, CBL, CDC73, CEBPA, CDH1, CDK4, CDKN1B, CDKN2A, CHEK2, CTNNA1, DDX41, DICER1, EGFR, ELANE, EPCAM, AOVG0R2, ETV6, FH, FLCN, G6PC3, GATA2, GFI1, GREM1, HAX1, HOXB13, IKZF1, KIT, KRAS, LZTR1, MAX, MBD4, MECOM, MEN1, MET, MITF, MLH1, MSH2, MSH3, MSH6, MUTYH, NBN, NF1, NF2, NTHL1, PALB2, PDGFRA, PMS2, POLD1, POLE, POT1, WRQRP5C, PTCH1, PTEN, PTPN11, RAD51C, RAD51D, RB1, RET, RTEL1, RUNX1, SAMD9, SAMD9L, SDHA, SDHAF2, SDHB, SDHC, SDHD, SMAD4, SMARCA4, SMARCB1, SMARCE1, SRP72, STK11, SUFU, TERC, TERT, BPVA609, TP53, TSC1, TSC2, and VHL. Preliminary evidence genes are KDM1A, PAX5, TET2. We discussed that an NGS panel can sometimes result in: A negative or non-diagnostic result that does not identify an underlying genetic cause for the patient's condition An uncertain result (variant of uncertain significance) for which the lab has limited information for interpretation and which will not lead to changes in management An unexpected finding which may or may not be related to the presenting phenotype We discussed that [email or web address] may contact the patient regarding billing. The patient should watch for this communication and respond promptly. The patient should contact [employer] directly with any billing questions (ph. [phone] or [email or web address]) . We reviewed that even in the case that insurance approves genetic testing, the patient may still receive a bill related to an unmet deductible or coinsurance. The patient was directed to contact their insurance company directly if they have questions about their benefits. Per the patient's request, we will contact her by [employer] or telephone to discuss these results. A follow up genetic counseling visit will be scheduled if requested. I spent a total of 40 minutes on the date of the service, which included preparing to see the patient, [id number] patient care, completing clinical documentation, obtaining and/or reviewing separately obtained history, counseling and educating the patient/family/caregiver, ordering tests, communicating with other HCPs (not separately reported), independently interpreting results (not separately reported), communicating results to the patient/family/caregiver, and care coordination (not separately reported). ERENDIRA Owens CGC Licensed, Certified Genetic Counselor EPIC CC: Dr. Belgica Rosenbaum documented in this encounter [facility] 12-18-2024 Note HNO ID: [id number] Author: KRISTIE COSTA LGC Service: ? Author Type: Genetic Counselor Type: Progress Notes Filed: 12/21/2024 15:20 Note Text: [facility] Department of Medical Genetics [facility] Consultation Note Genetic Counselor: ERENDIRA Owens [facility] [place] Patient: Rubi Mejia This visit was conducted via [employer]. I have communicated my name and active licensure. The patient's identity and physical location were verified at the time of this visit. Either the patient or their legal key account representative has been informed of the risks and benefits of -- and alternatives to -- treatment through a remote evaluation and consents to proceed with the evaluation remotely. HIGH LEVEL SUMMARY: The patient's personal and family history is potentially suggestive of a hereditary short telomere syndrome. Her family history is also potentially suggestive of a hereditary cancer syndrome. The patient provided informed consent for Custom Pulmonary Fibrosis, Multi-Cancer, and Leukemia/MDS panel plus preliminiary evidence genes through [facility]. Results are expected in 3-4 weeks pending lab receipt of sample. IDENTIFICATION AND CHIEF COMPLAINT: Dr. Belgica Mclain requested a consultation for genetic counseling and risk assessment in the [facility] for Rubi Mejia, a 74 year old female, for discussion of her personal and family history of pulmonary fibrosis/interstitial lung disease. She presents to clinic today to discuss the possibility of a hereditary short telomere syndrome, and to further clarify her risks, as well as her family members' risks. HISTORY OF PRESENT ILLNESS: Rubi Mejia is a 74 year old female with past medical history of interstitial lung disease (ILD) diagnosed in August 2024. Regarding exposures, the patient reports that she drank furniture vincentian at age 4 w/ aspiration which caused pneumonia requiring oxygen supplementation. She also reports living with birds for ~20 years and had a brief history of smoking in her early 20s (~2 years of light/social smoking). She also had some exposure to second hand smoke in the home growing up (father smoked). Her family history is significant for idiopathic pulmonary fibrosis in her father, paternal aunt, and paternal cousin. Additional family history details are listed below. Short Telomere Syndrome Review of Systems: Premature whitfield hair (before age 25)? No Pulmonary fibrosis, emphysema, or other lung disease? Yes - patient, father, paternal aunt, and paternal cousin all with idiopathic pulmonary fibrosis/interstitial lung disease. Nail dysplasia? Brother w/ severe ingrown toenails requiring surgery, patient reports some vertical ridges in fingernails. Skin pigment abnormalities? No Oral Leukoplakia? No Osteoporosis, scoliosis, or aseptic necrosis? No Short stature? No Dental caries or loss? No Esophageal stricture? No Sparse eyelashes or epiphora (excessive tears not draining properly)? No Hyperhidrosis? No Head and neck, cervical, and/or anal cancer? None known. Unexplained cytopenias, macrocytosis, bone marrow failure/aplastic anemia, MDS, and/or AML? No Liver cirrhosis or fibrosis? No Raynaud's? Yes, patient's daughter. Cerebellar hypoplasia? No, but youngest child has epilepsy. Hypogonadism? No Microcephaly? No Urethral stricture or phimosis? No Deafness? No Developmental delay? Possible in patient's brother though unconfirmed. Autoimmunity? No PAST MEDICAL HISTORY Diagnosis Date Acid reflux Questionable Environmental allergies Hypertension Palpitations Paroxysmal supraventricular tachycardia (HCC) PAST SURGICAL HISTORY Procedure Laterality Date ANKLE SURGERY HX Right 01/24/2015 x2 COLONOSCOPY FLX DX W/COLLJ SPEC WHEN PFRMD 02/27/2019 Colonoscopy PAST SURGICAL HISTORY OF 1986 ectopic SOCIAL HISTORY: Social History Tobacco Use Smoking status: Never Smokeless tobacco: Never Vaping Use Vaping status: Never Used Substance Use Topics Alcohol use: Yes Comment: social- 3-4 glasses wine a week Drug use: No FAMILY HISTORY: We obtained a detailed, 4-generation family history. Significant diagnoses are listed below: FAMILY HISTORY Problem Relation Age of Onset Skin Cancer Mother BCC, SCC and melanoma Breast Cancer Mother 60 - 69 s/p double mastectomy Cervical Cancer Mother 30 - 39 Pancreatic Cancer Mother 85 - 86 Idiopathic pulmonary fibrosis (HCC) Father 64 sinus and ongoing cough all of adult life. ~6 months after Dx. other (Heart Attack) Brother Pulmonary hypertension (HCC) Brother Coronary Artery Disease Brother CABG other (CHF) Brother Open Heart Surgery other (A-Fib) Brother had ablation to treat Kidney Cancer Maternal Grandmother Pancreatic Cancer Maternal Grandfather Cancer Paternal Grandmother +TOB, heavy smoker Incontinentia pigm (more content not included)... [facility] 10-24-2024 Instructions Belgica Mclain MD - 10/24/2024 1:51 PM EDT Please complete lab test and breathing test in 3-6 months Please see the genetics. Please read the information below; it may or may not be relavant in the near future. Visit the pulmonary fibrosis foundation website. Please call the numbers below should you wish further assistance: Nursing assistance: [phone] Dr. Mclain's office and appointments: [phone] Jaqueline Ramires's office: [phone] Appointments: [phone] Mycophenolate Mycophenolate Mofetil (CellCept) and Mycophenolate Sodium (Myfortic) are immunosuppressant drugs (a class of drugs that reduce the strength of the body s immune system) used in the treatment of several autoimmune diseases. Mycophenolate was used originally in the management of patients with organ transplants, but is now recommended in the treatment of many autoimmune diseases. Mycophenolate has been used to treat people with lung disease, lupus (especially those with symptoms of kidney disease), rheumatoid arthritis (RA), vasculitis, inflammatory bowel disease such as Crohn's disease, inflammatory eye disease (such as uveitis (iritis) and scleritis), and some other kidney and skin disorders. How to Take It- Caregivers administering mycophenolate should wear gloves when handling it due to concern with risks and effects on the immune system. In adults, mycophenolate is typically taken twice daily for a total dose of 2 - 3 grams (2000 - 3000mg) per day, although this dosage may be reduced in people with underlying kidney problems. The dose usually is lower than two grams a day for children. Taking mycophenolate with food often helps prevent side effects such as nausea or stomach pain. Regular laboratory monitoring is required to monitor blood counts and your liver while taking mycophenolate. Side Effects- Mycophenolate can lower the ability of your immune system to fight infections. If you develop symptoms of an infection while using this medication, you should stop it and contact your doctor. The most common side effects of mycophenolate are nausea and upset stomach. Other possible side effects include headaches, dizziness, difficulty sleeping, tremor, or rash. Prolonged use of mycophenolate may increase risk of some cancers such as lymphomas and skin cancers. Tell Your Provider- You should notify your provider if you have these symptoms while taking this medication: an infection (such as a fever or cough), diarrhea, or allergic reactions. Make sure to notify your other physicians while you are taking this drug. Mycophenolate has been associated with defects and loss. If you are or considering , let your doctor know before starting this medication. Women should discuss control with their primary care physicians or gynecologists. Breast-feeding should be avoided while taking this medication because the drug can enter breast milk. Be sure to talk with your provider before receiving any vaccines or undergoing any surgeries while taking this medication. Live vaccines should be avoided while on this medication and you should discuss updating your vaccinations prior to starting this medication. These include the older shingles vaccine (Zostavax); the nasal spray flu vaccine; and others such as the measles, mumps, rubella, and yellow fever vaccines Notify your provider if you bruise or bleed easily, or if you experience persistent or bloody diarrhea, shortness of breath, fevers or other signs of an infection. Mycophenolate usage should halt if there are signs of an infection. Source- [employer] [place] [employer] www.ACRpatientinfo.org Nintedanib (OFEV) What is this drug used for? It is used to treat idiopathic pulmonary fibrosis (IPF) or certain other lung problems. It is used to slow the progress of lung disease in some people. What do I need to tell my doctor BEFORE I take this drug? If you are allergic to this drug; any part of this drug; or any other drugs, foods, or substances. Tell your doctor about the allergy and what signs you had. If you have liver disease. If you are taking any of these drugs: Carbamazepine, phenytoin, rifampin, or [place]'s wort. If you are breast-feeding. Do not breast-feed while you take this drug. This is not a list of all drugs or health problems that interact with this drug. Tell your doctor and pharmacist about all of your drugs (prescription or OTC, natural products, vitamins) and health problems. You must check to make sure that it is safe for you to take this drug with all of your drugs and health problems. Do not start, stop, or change the dose of any drug without checking with your doctor. What are some things I need to know or do while I take this drug? For all patients taking this drug: Tell all of your health care providers that you take this drug. This includes your doctors, nurses, pharmacists, and dentists. You may bleed more easily. Be careful and avoid injury. Use a soft toothbrush and an electric razor. Rarely, some bleeding problems have been deadly. Have blood work checked as you have been told by the doctor. Talk with the doctor. High blood pressure has happened with this drug. Have your blood pressure checked as you have been told by your doctor. This drug may raise the chance of holes or tears in the stomach or bowels. Sometimes, this has been deadly. Call your doctor right away if you have stomach swelling or very bad stomach pain. This drug may cause fertility problems. This may affect being able to have children. Talk with the doctor. If you throw up or have diarrhea, control pills may not work as well. If you take control and this happens, use an extra form of control like condoms. This drug may cause harm to an unborn baby. A test will be done before you start this drug to show that you are NOT . If you may become , you must use control while taking this drug and for some time after the last dose. Ask your doctor how long to use control. If you get , call your doctor right away. If you smoke: Stop smoking before starting this drug. Avoid smoking while taking it. Smoking may lower how well this drug works. Talk with your doctor. What are some side effects that I need to call my doctor about right away? WARNING/CAUTION: Even though it may be rare, some people may have very bad and sometimes deadly side effects when taking a drug. Tell your doctor or get medical help right away if you have any of the following signs or symptoms that may be related to a very bad side effect: Signs of an allergic reaction, like rash; hives; itching; red, swollen, blistered, or peeling skin with or without fever; wheezing; tightness in the chest or throat; trouble breathing, swallowing, or talking; unusual hoarseness; or swelling of the mouth, face, lips, tongue, or throat. Signs of bleeding like throwing up or coughing up blood; vomit that looks like coffee grounds; blood in the urine; black, red, or tarry stools; bleeding from the gums; abnormal vaginal bleeding; bruises without a cause or that get bigger; or bleeding you cannot stop. Signs of high blood pressure like very bad headache or dizziness, passing out, or change in eyesight. Signs of a urinary tract infection (UTI) like blood in the urine, burning or pain when passing urine, feeling the need to pass urine often or right away, fever, lower stomach pain, or pelvic pain. Very bad and sometimes deadly liver problems have happened with this drug. Call your doctor right away if you have signs of liver problems like dark urine, feeling tired, not hungry, upset stomach or stomach pain, light-colored stools, throwing up, or yellow skin or eyes. Very bad blood clots like heart attack have happened with this drug. Call your doctor right away if you have signs of heart attack like chest pain or pressure; arm, back, neck, or jaw pain; or shortness of breath. Call your doctor right away if you have signs of stroke like confusion, numbness or weakness on 1 side of your body, very bad dizziness or headache, or change in speech or eyesight. What are some other side effects of this drug? All drugs may cause side effects. However, many people have no side effects or only have minor side effects. Call your doctor or get medical help if any of these side effects or any other side effects bother you or do not go away: Headache. Stomach pain. Weight loss. Feeling dizzy, tired, or weak. Back pain. Nose or throat irritation. Signs of a common cold. Diarrhea, throwing up, upset stomach, and feeling less hungry are common with this drug. If these happen, talk with your doctor about ways to lower these side effects. Call your doctor right away if any of these effects bother you, do not get better, or get very bad. These are not all of the side effects that may occur. If you have questions about side effects, call your doctor. Call your doctor for medical advice about side effects. You may report side effects to your national health agency. How is this drug best taken? Use this drug as ordered by your doctor. Read all information given to you. Follow all instructions closely. Take this drug with food. Swallow whole with some water or other drink. Do not chew or crush. Keep taking this drug as you have been told by your doctor or other health care provider, even if you feel well. What do I do if I miss a dose? Skip the missed dose and go back to your normal time. Do not take 2 doses at the same time or extra doses. How do I store and/or throw out this drug? Store at room temperature in a dry place. Do not store in a bathroom. Protect from heat. Keep all drugs in a safe place. Keep all drugs out of the reach of children and pets. Throw away unused or drugs. Do not flush down a toilet or pour down a drain unless you are told to do so. Check with your pharmacist if you have questions about the best way to throw out drugs. There may be drug take-back programs in your area. General drug facts If your symptoms or health problems do not get better or if they become worse, call your doctor. Do not share your drugs with others and do not take anyone else's drugs. Some drugs may have another patient information leaflet. If you have any questions about this drug, please talk with your doctor, nurse, pharmacist, or other health care provider. If you think there has been an overdose, call your poison control center or get medical care right away. Be ready to tell or show what was taken, how much, and when it happened. Source- www.RECESS. Pirfenidone (ESBRIET) What is this drug used for? It is used to treat idiopathic pulmonary fibrosis. What do I need to tell my doctor BEFORE I take this drug? If you have an allergy to pirfenidone or any other part of this drug. If you are allergic to this drug; any part of this drug; or any other drugs, foods, or substances. Tell your doctor about the allergy and what signs you had. If you have any of these health problems: Kidney disease or liver disease. If you are taking any drugs that may make your skin more sensitive to light. There are many drugs that can do this. Ask your doctor or pharmacist if you are not sure. This is not a list of all drugs or health problems that interact with this drug. Tell your doctor and pharmacist about all of your drugs (prescription or OTC, natural products, vitamins) and health problems. You must check to make sure that it is safe for you to take this drug with all of your drugs and health problems. Do not start, stop, or change the dose of any drug without checking with your doctor. What are some things I need to know or do while I take this drug? Tell all of your health care providers that you take this drug. This includes your doctors, nurses, pharmacists, and dentists. You may get sunburned more easily. Avoid sun, sunlamps, and tanning beds. Use sunscreen and wear clothing and eyewear that protects you from the sun. Stop smoking before starting this drug. Avoid smoking while taking it. Smoking may lower how well this drug works. Talk with your doctor. Have blood work checked as you have been told by the doctor. Talk with the doctor. Tell your doctor if you are , plan on getting , or are breast-feeding. You will need to talk about the benefits and risks to you and the baby. What are some side effects that I need to call my doctor about right away? WARNING/CAUTION: Even though it may be rare, some people may have very bad and sometimes deadly side effects when taking a drug. Tell your doctor or get medical help right away if you have any of the following signs or symptoms that may be related to a very bad side effect: Signs of an allergic reaction, like rash; hives; itching; red, swollen, blistered, or peeling skin with or without fever; wheezing; tightness in the chest or throat; trouble breathing, swallowing, or talking; unusual hoarseness; or swelling of the mouth, face, lips, tongue, or throat. Chest pain or pressure. Sunburn. Any unexplained bruising or bleeding. Liver problems have rarely happened with this drug. Sometimes, this has been deadly. Call your doctor right away if you have signs of liver problems like dark urine, feeling tired, not hungry, upset stomach or stomach pain, light-colored stools, throwing up, or yellow skin or eyes. What are some other side effects of this drug? All drugs may cause side effects. However, many people have no side effects or only have minor side effects. Call your doctor or get medical help if any of these side effects or any other side effects bother you or do not go away: Feeling dizzy, tired, or weak. Signs of a common cold. Headache. Joint pain. Change in taste. Trouble sleeping. Weight loss. Stomach pain or heartburn. Diarrhea, throwing up, upset stomach, and feeling less hungry are common with this drug. If these happen, talk with your doctor about ways to lower these side effects. Call your doctor right away if any of these effects bother you, do not get better, or get very bad. These are not all of the side effects that may occur. If you have questions about side effects, call your doctor. Call your doctor for medical advice about side effects. You may report side effects to your national health agency. How is this drug best taken? Use this drug as ordered by your doctor. Read all information given to you. Follow all instructions closely. Take this drug with food. Take this drug at the same time of day. Keep taking this drug as you have been told by your doctor or other health care provider, even if you feel well. What do I do if I miss a dose? Take a missed dose as soon as you think about it, with food. If it is close to the time for your next dose, skip the missed dose and go back to your normal time. Do not take 2 doses at the same time or extra doses. If you miss 14 or more days of taking this drug, call your doctor before you start taking it again. How do I store and/or throw out this drug? Store at room temperature. Store in a dry place. Do not store in a bathroom. Keep lid tightly closed. Keep all drugs in a safe place. Keep all drugs out of the reach of children and pets. Throw away unused or drugs. Do not flush down a toilet or pour down a drain unless you are told to do so. Check with your pharmacist if you have questions about the best way to throw out drugs. There may be drug take-back programs in your area. General drug facts If your symptoms or health problems do not get better or if they become worse, call your doctor. Do not share your drugs with others and do not take anyone else's drugs. Some drugs may have another patient information leaflet. If you have any questions about this drug, please talk with your doctor, nurse, pharmacist, or other health care provider. If you think there has been an overdose, call your poison control center or get medical care right away. Be ready to tell or show what was taken, how much, and when it happened. Source- www.RECESS. documented in this encounter [facility] 10-24-2024 Note HNO ID: [id number] Author: BELGICA MCLAIN MD Service: ? Author Type: Physician Type: Progress Notes Filed: 10/25/2024 07:31 Note Text: Pulmonary Medicine NEW INTERSTITIAL LUNG DISEASE OUTPATIENT CONSULTATION Referring Physician: Nathalia Barraza APRN.* Date of service: 10/24/24 History of Present Illness: 74F here for ILD evaluation. Pmxh fo GERD, HTN, SVT. Chronic cough of several yrs - slightly progressive. Exposures to parrots - >10yrs, 20 birds at least, all lived indoors. Open cage - does the cleaning. Currently has 2 pet parrots living. No down, hot tubs, jacuzzi, chronic Abx, hx of chemo, radiation. 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 Father of ILD, brother w/ ILD. Both diagnosed in their 60s. Patient denies hx of liver fibrosis or hematological history. Patient denies dyspnea/wheeze. Trelegy does not help. Being treated for GERD. No CTD symptoms. CT chest with CHF pattern. CTD and HP labs negative. FVC and DL normal mMRC: Date mMRC 0 Review of Systems: All other systems reviewed and are negative (except as per HPI). Past Medical AND Surgical History: PAST MEDICAL HISTORY Diagnosis Date Acid reflux Questionable Environmental allergies Hypertension Palpitations Paroxysmal supraventricular tachycardia (HCC) PAST SURGICAL HISTORY Procedure Laterality Date ANKLE SURGERY HX Right 01/24/2015 x2 COLONOSCOPY FLX DX W/COLLJ SPEC WHEN PFRMD 02/27/2019 Colonoscopy PAST SURGICAL HISTORY OF 1985 ectopic Social History: Smoking history: reports that she has never smoked. She has never used smokeless tobacco. Drug Use: No Family History: FAMILY HISTORY Problem Relation Age of Onset other (Idiopathic Pulmonary Fibrosis) Father Breast Cancer Mother Cervical Cancer Mother other (Pancreatic Cancer) Mother other (Heart Attack) Brother Coronary Artery Disease Brother CABG other (CHF) Brother Open Heart Surgery other (A-Fib) Brother had ablation to treat Medications: Current Outpatient Medications Medication Sig dilTIAZem CR (TIAZAC, TAZTIA XT) 180 mg 24 hr capsule Take 1 capsule by mouth every afternoon. Telmisartan 20 mg tablet Take 20 mg by mouth once daily. indapamide (LOZOL) 1.25 mg tablet Take 1.25 mg by mouth once daily. MULTIVITAMIN ORAL Take by mouth once daily. No current facility-administered medications for this visit. Physical Examination: Vital Signs: Blood pressure 113/76, pulse 76, temperature 36.1 ?C (97 ?F), temperature source Temporal, resp. rate 18, height 165.1 cm (5' 5), weight 92.1 kg (203 lb 0.7 oz), SpO2 96%. General: The patient appears in no acute distress. Alert and oriented to person, place, time, and situation. Calm and cooperative with physical exam. HEENT: Normocephalic, normal conjunctiva, moist oral mucosa, PERRL, nares patent, good dentition, appropriate rise and fall of uvula and soft palate Neck: TM No JVD Chest: faint crackles at the bases Cardiac: Regular rhythm, normal rate, S1S2 auscultated Abdomen: Soft, non-tender, non-distended, positive bowel sounds in all four quadrants Skin: No rashes, open wounds, or bruising. Warm, dry, well-perfused. Extremities: no edema, no cyanosis Neuro: Grossly moving all 4 limbs Psych: Mood stable. Review of Data: Reviewed in EMR and interpreted by myself CT: Aug 2024 - reticulation, worse at the bases vs apex with GGO and air trapping. No HC/BE 6MWT: Date Distance Walked (m) Pred. Distance (m) % Pred. Notes Exercise Desaturations Study: Date Lowest SpO2 at rest Lowest SpO2 on exertion O2 dose needed Pulmonary Function Testing: Date FVC % Pred. FEV1 % Pred. FEV1/FVC TLC % Pred. DL % Pred. 10/24/24 3.06 104 117 87 15.9 82 PSG: Pathology AND Bronchoscopy Results: EKG: ECHO: LV Angiography: Right heart catheterization: Date RA (S/D/M) RV (S/D/M) PA (S/D/M) PCWP (M) LVEDP CO/CI (Ronak) PVR Vasoreactity FiO2 testing Assessment and Recommendation: (J84.9) ILD (interstitial lung disease) (HCC) (primary encounter diagnosis) (R05.3) Chronic cough (K21.9) Gastroesophageal reflux disease without esophagitis (Z83.6) Family history of pulmonary fibrosis (L67.1) Whitfield hair 74F here for ILD evaluation. Pmxh fo GERD, HTN, SVT. Chronic cough of several yrs - slightly progressive. Exposures to parrots - >10yrs, 20 birds at least, all lived indoors. Open cage - does the cleaning. Currently has 2 pet parrots living. No down, hot tubs, jacuzzi, chronic Abx, hx of chemo, radiation. 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 Father of ILD, brother w/ ILD. Both diagnosed in their 60s. Patient denies hx of liver fibrosis or hematological history. Patient denies dyspnea/wheeze. Trelegy does not help. Being treated for GERD. No CTD symptoms. CT chest with (more content not included)... [facility] 10-24-2024 History of Presen t illness Narrative Images from the original note were not included. Pulmonary Medicine NEW INTERSTITIAL LUNG DISEASE OUTPATIENT CONSULTATION Referring Physician: Nathalia Barraza APRN.* Date of service: 10/24/24 History of Present Illness: 74F here for ILD evaluation. Pmxh fo GERD, HTN, SVT. Chronic cough of several yrs - slightly progressive. Exposures to parrots - >10yrs, 20 birds at least, all lived indoors. Open cage - does the cleaning. Currently has 2 pet parrots living. No down, hot tubs, jacuzzi, chronic Abx, hx of chemo, radiation. 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 Father of ILD, brother w/ ILD. Both diagnosed in their 60s. Patient denies hx of liver fibrosis or hematological history. Patient denies dyspnea/wheeze. Trelegy does not help. Being treated for GERD. No CTD symptoms. CT chest with CHF pattern. CTD and HP labs negative. FVC and DL normal mMRC: Date mMRC 0 Review of Systems: All other systems reviewed and are negative (except as per HPI). Past Medical & Surgical History: PAST MEDICAL HISTORY Diagnosis Date Acid reflux Questionable Environmental allergies Hypertension Palpitations Paroxysmal supraventricular tachycardia (HCC) PAST SURGICAL HISTORY Procedure Laterality Date ANKLE SURGERY HX Right 01/24/2015 x2 COLONOSCOPY FLX DX W/COLLJ SPEC WHEN PFRMD 02/27/2019 Colonoscopy PAST SURGICAL HISTORY OF 1986 ectopic Social History: Smoking history: reports that she has never smoked. She has never used smokeless tobacco. Drug Use: No Family History: FAMILY HISTORY Problem Relation Age of Onset other (Idiopathic Pulmonary Fibrosis) Father Breast Cancer Mother Cervical Cancer Mother other (Pancreatic Cancer) Mother other (Heart Attack) Brother Coronary Artery Disease Brother CABG other (CHF) Brother Open Heart Surgery other (A-Fib) Brother had ablation to treat Medications: Current Outpatient Medications Medication Sig dilTIAZem CR (TIAZAC, TAZTIA XT) 180 mg 24 hr capsule Take 1 capsule by mouth every afternoon. Telmisartan 20 mg tablet Take 20 mg by mouth once daily. indapamide (LOZOL) 1.25 mg tablet Take 1.25 mg by mouth once daily. MULTIVITAMIN ORAL Take by mouth once daily. No current facility-administered medications for this visit. Physical Examination: Vital Signs: Blood pressure 113/76, pulse 76, temperature 36.1 C (97 F), temperature source Temporal, resp. rate 18, height 165.1 cm (5' 5), weight 92.1 kg (203 lb 0.7 oz), SpO2 96%. General: The patient appears in no acute distress. Alert and oriented to person, place, time, and situation. Calm and cooperative with physical exam. HEENT: Normocephalic, normal conjunctiva, moist oral mucosa, PERRL, nares patent, good dentition, appropriate rise and fall of uvula and soft palate Neck: TM No JVD Chest: faint crackles at the bases Cardiac: Regular rhythm, normal rate, S1S2 auscultated Abdomen: Soft, non-tender, non-distended, positive bowel sounds in all four quadrants Skin: No rashes, open wounds, or bruising. Warm, dry, well-perfused. Extremities: no edema, no cyanosis Neuro: Grossly moving all 4 limbs Psych: Mood stable. Review of Data: Reviewed in EMR and interpreted by myself CT: Aug 2024 - reticulation, worse at the bases vs apex with GGO and air trapping. No HC/BE 6MWT: Date Distance Walked (m) Pred. Distance (m) % Pred. Notes Exercise Desaturations Study: Date Lowest SpO2 at rest Lowest SpO2 on exertion O2 dose needed Pulmonary Function Testing: Date FVC % Pred. FEV1 % Pred. FEV1/FVC TLC % Pred. DL % Pred. 10/24/24 3.06 104 117 87 15.9 82 PSG: Pathology & Bronchoscopy Results: EKG: ECHO: LV Angiography: Right heart catheterization: Date RA (S/D/M) RV (S/D/M) PA (S/D/M) PCWP (M) LVEDP CO/CI (Ronak) PVR Vasoreactity FiO2 testing Assessment and Recommendation: (J84.9) ILD (interstitial lung disease) (HCC) (primary encounter diagnosis) (R05.3) Chronic cough (K21.9) Gastroesophageal reflux disease without esophagitis (Z83.6) Family history of pulmonary fibrosis (L67.1) [place] hair 74F here for ILD evaluation. Pmxh fo GERD, HTN, SVT. Chronic cough of several yrs - slightly progressive. Exposures to parrots - >10yrs, 20 birds at least, all lived indoors. Open cage - does the cleaning. Currently has 2 pet parrots living. No down, hot tubs, jacuzzi, chronic Abx, hx of chemo, radiation. 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 Father of ILD, brother w/ ILD. Both diagnosed in their 60s. Patient denies hx of liver fibrosis or hematological history. Patient denies dyspnea/wheeze. Trelegy does not help. Being treated for GERD. No CTD symptoms. CT chest with CHP pattern. CTD and HP labs negative. FVC and DL normal History and imaging concordant for CHP - high confidence. Doubtful utility of biopsy; either surgical or cryo. BAL might tell us if lavage is inflammatory - suitability for immunosuppression, however in view for concern of STS - immunosuppression use can increase mortality risk. She will think more about biopsy - right now leaning towards no. She will consider medical genetics consults - telomere length will tell me if she can tolerate immunosuppression, risk of progression, early initiation of antifibrotics. IMPERATIVE TO REHOME HER PET BIRDS - she has made plans for this. Cough - optimize GERD. Cough due to ILD is difficult/impossible to treat. Can consider pulm rehab in the future. Lung transplant eval not indicated now and I did not discuss as there was too much else that is more important now. RTC in 3 months for samuel, dl, ct chest - ?progression that will help immediacy of antifibrotics &/ immunosupression initiation. She needs time to process all the above. I spent 50 minutes in the visit, with more than 50% of the total [id number] time of the visit in counseling / coordination of care. Note forwarded to primary environmental compliance manager. Patient was agreeable to plan, and all questions were answered accordingly. ILD Classification, Severity, Functional Assessment and Trajectory: ILD most likely; CHP w/ FPF A. Disease progression: unclear B. Pathology: none C. Imaging: CT: Aug 2024 - reticulation, worse at the bases vs apex with GGO and air trapping. No HC/BE D. Physiology: - PFT: FVC and DL 80s% - 6MWT: E. Oxygenation: - at rest; RA - on exertion F. ILD medication management: none G. PH: OSH ECHO September 2024 - 'normal RV' H. Transplant:not indicated now Signed: Sumaya Mclain MD, MS, [facility] Staff Physician Respiratory [place] [facility] 10/24/2024 1:00 PM Thank you for entrusting the care of this patient to the Interstitial Lung Disease Program. The patient will be returning to you for your continued care. We are happy to collaborate with you in any way. Please contact us if we can be of any assistance. Pulmonary Medicine documented in this encounter [facility] 10-05-2024 Telephone encounter Note Pt called in stating she is requesting Aug 2024 PFTs from [place] to be faxed over for upcoming appointment. [facility] 10-05-2024 Miscellaneous Notes Pt called in stating she is requesting Aug 2024 PFTs from [place] [facility] to be faxed over for upcoming appointment. documented in this encounter [facility] 10-03-2024 Telephone encounter Note Summary: New ILD Interstitial Lung Disease Referral Intake Patient: Rubi Mejia Date: October 03, 2024 9:27 AM Schedulers: --Please schedule patient with any ILD provider ILD Dr. Toya Joiner: [facility]. Dr. Nikunj Cherry: [facility] & [place] (2023). Dr. Facundo Gore: [facility] & [facility]. Dr. Carolyne Rueda: [facility] & [place]. Dr. Karolina Mercedes: [facility]. ILD/Sarcoid Dr. Belgica Mclain: [facility] & [place]. Dr. Fazal Sy: [facility] & [facility] ([place]). Dr. Laurent Dennis: [facility] and [facility] Dr. Thiago Gonzalez: [facility], [facility]), & [place]. Dr. David Holbrook: [facility] & [place]. Dr. Rosemary Mcdonough: [facility], [facility] ([facility]) & [facility] ([facility]). Sarcoid/ILD Pulmonary [place]: [facility] ( afternoon). Dr. Karolina Mercedes: [facility]. & [place]. ILD/Sarcoid/Beryllium/Occupation al Dr. Alice Long: [facility], [place], [place], & [place]. Testing needed: Spirometry w/ bronchodilator if obstructed and DLCO. MyChart: Already set up. *Remind patient to bring imaging disc in hand. Consult information: Referred by: Dr. Carlos Bhat [facility] Diagnosis: ILD- likely IPF CT chest: yes, imported Most recent date: 08/2024 Location performed: [facility] Biopsy: None Type: Date: Location performed: Current or past treatment (for the ILD diagnosis): None Have you ever been told that you have scleroderma? No Have you been told by your physician that your lung disease is due to an occupational or work exposure? No Have you ever been deployed? No *Please remember to give the authorization for release of medical records to your doctor(s), and also obtain your CT(s) on a disc from the radiology department and hand carry this to your appointment. Klarissa Pineda RN [facility] 10-03-2024 Miscellaneous Notes Summary: New ILD Interstitial Lung Disease Referral Intake Patient: Rubi Mejia Date: October 03, 2024 9:27 AM Schedulers: --Please schedule patient with any ILD provider ILD Dr. Toya Joiner: [facility]. Dr. Nikunj Cherry: [facility] & [place] (2023). Dr. Facundo Gore: [facility] & [facility]. Dr. Carolyne Rueda: [facility] & [place]. Dr. Karolina Mercedes: [facility]. ILD/Sarcoid Dr. Belgica Mclain: [facility] & [place]. Dr. Fazal Sy: [facility] & [facility] ([place]). Dr. Laurent Dennis: [facility] and [facility] [facility] Dr. Thiago Gonzalez: [facility], [facility]), & [place]. Dr. David Holbrook: [facility] & [place]. Dr. Rosemary Mcdonough: [facility], [facility] ([facility]) & [facility] ([facility]). Sarcoid/ILD Pulmonary [place]: [facility] ( afternoon). Dr. Karolina Mercedes: [facility]. & [place]. ILD/Sarcoid/Beryllium/Occupation al Dr. Alice Long: [facility], [place], [place], & [place]. Testing needed: Spirometry w/ bronchodilator if obstructed and DLCO. MyChart: Already set up. *Remind patient to bring imaging disc in hand. Consult information: Referred by: Dr. Carlos Bhat [facility] Diagnosis: ILD- likely IPF CT chest: yes, imported Most recent date: 08/2024 Location performed: [facility] Biopsy: None Type: Date: Location performed: Current or past treatment (for the ILD diagnosis): None Have you ever been told that you have scleroderma? No Have you been told by your physician that your lung disease is due to an occupational or work exposure? No Have you ever been deployed? No *Please remember to give the authorization for release of medical records to your doctor(s), and also obtain your CT(s) on a disc from the radiology department and hand carry this to your appointment. Klarissa Pineda RN documented in this encounter [facility] 09-27-2024 Note HNO ID: [id number] Author: CARLOS MCKEE MD Service: ? Author Type: Physician Type: Progress Notes Filed: 09/27/2024 09:59 Note Text: E-Consult Response Thank you Dr. Alvarado to the interesting E consult. In response to your eConsult request to [facility] for Rubi Luevanomarla regarding the clinical question: Needs in person evaluation in ILD Clinic. History of present illness provided through requesting provider documentation and current treatment plan was reviewed. Based on the patient history provided, my impression is as follows: 74 yo F with chronic cough. OSH Chest CT images (not available on EPIC but reviewed CT screenshot in notes) showing subpleural lower lobe predominant reticulation. Note work up including LEWIS, JARED ID, CCP, HP, DM/PM, RF panel ordered. ILD. Ddx IPF vs MARIA ESTHER. Noted family history of IPF. Please upload the CT images to [facility] when feasible. E-Consult follow up recommendation:An appointment will be coordinated by [facility] [place] Carlos Bhat MD September 27, 2024 [facility] 09-27-2024 History of Presen t illness Narrative E-Consult Response Thank you Dr. Alvarado to the interesting E consult. In response to your eConsult request to [facility] for Rubi Mejia regarding the clinical question: Needs in person evaluation in ILD Clinic. History of present illness provided through requesting provider documentation and current treatment plan was reviewed. Based on the patient history provided, my impression is as follows: 74 yo F with chronic cough. OSH Chest CT images (not available on EPIC but reviewed CT screenshot in notes) showing subpleural lower lobe predominant reticulation. Note work up including LEWIS, JARED ID, CCP, HP, DM/PM, RF panel ordered. ILD. Ddx IPF vs MARIA ESTHER. Noted family history of IPF. Please upload the CT images to [facility] when feasible. E-Consult follow up recommendation:An appointment will be coordinated by [facility] [place] Carols Bhat MD September 27, 2024 documented in this encounter [facility] 09-05-2024 History of Presen t illness Narrative Images from the original note were not included. . [facility] [place] Note Patient name: Rubi Mejia PCP: Cris Rizzo MD Referring Physician: Same Consultation requested by Dr. Rizzo for an opinion regarding chronic cough. My final recommendations will be communicated back to the requesting physician by way of shared Medical record or letter to requesting physician via [place] mail. CC: Cough HPI: Rubi Mejia 73 year old female never smoker with PMH significant for allergies, HTN, PAT being seen for evaluation of chronic cough. She has had a cough on and off for many years. Cough is mainly dry, more prominent in morning, occasionally productive of clear phlegm. No nocturnal awakenings. Will have coughing spells without an obvious trigger. No significant SOB, wheezing. She does not remember any antecedent URI. She had COVID 2 years ago but this did not necessarily worsen her cough. She has been treated for allergies and possible GERD without relief. She was briefly tried on Trelegy but this made her feel worse. PFTs normal. No symptoms to suggest autoimmune disorder, no prior use of medications known to cause fibrosis. However, she has two parrots. Has family history of pulmonary fibrosis including father, paternal aunt and cousin. DATA: PFT 08/16/2024 FVC 3.06 L 104% FEV1 0.65 L 117% FEV1/FVC 87% FEF 25-75% 3.55 L 100% No change with bronchodilators TLC 4.65 L 87% RV 1.51 L 72% DLCO 15.99 82% Imaging / Diagnostic Studies: Chest [facility] 08/15/2024: Chest CT shows peripheral reticulations and mosaic attentuation PAST MEDICAL HISTORY Diagnosis Date Acid reflux Questionable Environmental allergies Hypertension Palpitations ALLERGIES No Known Allergies dilTIAZem CR (TIAZAC, TAZTIA XT) 180 mg 24 hr capsule Take 1 capsule by mouth every afternoon. Telmisartan 20 mg tablet Take 20 mg by mouth once daily. indapamide (LOZOL) 1.25 mg tablet Take 1.25 mg by mouth once daily. MULTIVITAMIN ORAL Take by mouth once daily. 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 FAMILY HISTORY Problem Relation Age of Onset other (Idiopathic Pulmonary Fibrosis) Father Breast Cancer Mother Cervical Cancer Mother other (Pancreatic Cancer) Mother other (Heart Attack) Brother Coronary Artery Disease Brother CABG other (CHF) Brother Open Heart Surgery other (A-Fib) Brother had ablation to treat PAST SURGICAL HISTORY Procedure Laterality Date ANKLE SURGERY HX Right 01/24/2015 x2 COLONOSCOPY FLX DX W/COLLJ SPEC WHEN PFRMD 02/27/2019 Colonoscopy PAST SURGICAL HISTORY OF 1985 ectopic PMH, Social history, family history and surgical history reviewed and updated in EMR REVIEW OF SYSTEMS: CONSTITUTIONAL: No fevers, chills, nightsweats, unintended weight loss HEENT: Denies current nasal congestion/sinus symptoms, allergy problems. EYES: Wears glases CARDIOVASCULAR: No chest pain, dyspnea, palpitations, orthopnea. Some edema PULM: See HPI GI: No dysphagia/odynophagia, problematic reflux NEURO: No balance problems, peripheral weakness/paresthesias or numbness of concern. MUSC-SKEL: Hand arthritis INTEGUMENTARY: No skin changes PHYSICAL EXAMINATION: BP 117/73 Pulse 78 Wt 202 lb 9.6 oz (91.9kg) SpO2 96% General Appearance: Obese female, NAD. Skin: Skin color, texture, turgor normal, no suspicious rashes or lesions. Head: Normocephalic, no masses, lesions, tenderness or abnormalities. Eyes: Sclera, conjunctiva normal. Oropharynx: No oral lesions. Neck: No masses or adenopathy. Lungs: Not labored, no wheezes or crackles. Heart: RRR, no murmur. Extremities: Mild edema, no clubbing. Assessment/Plan: ILD -No previous imaging for comparison the assess time line -Most concerned about possible chronic HP -HP panel, autoimmune serologies -May need ILD consultation/assessment for lung biopsy -Has strong family history of pulmonary fibrosis which raises the question on familial IPF but her age is somewhat atypical for onset Chronic cough -Likely due to ILD -Allergic component raises question of cough asthma. Hold on methacholine challenge for now I spent a total of 76 minutes on the date of the service which included preparing to see the patient, [id number] patient care, completing clinical documentation, performing an appropriate physical exam, obtaining and/or reviewing separately obtained history, counseling and educating the patient/family/caregiver, ordering medications, tests, or procedures, and independently interpreting results (not separately reported). Yoselyn Alvarado MD [facility] [place] documented in this encounter [facility] 09-05-2024 Note HNO ID: [id number] Author: YOSELYN ALVARADO MD Service: ? Author Type: Physician Type: Progress Notes Filed: 09/05/2024 20:05 Note Text: . [facility] [place] Note Patient name: Rubi Mejia PCP: Cris Rizzo MD Referring Physician: Same Consultation requested by Dr. Rizzo for an opinion regarding chronic cough. My final recommendations will be communicated back to the requesting physician by way of shared Medical record or letter to requesting physician via [place] mail. CC: Cough HPI: Rubi Mejia 73 year old female never smoker with PMH significant for allergies, HTN, PAT being seen for evaluation of chronic cough. She has had a cough on and off for many years. Cough is mainly dry, more prominent in morning, occasionally productive of clear phlegm. No nocturnal awakenings. Will have coughing spells without an obvious trigger. No significant SOB, wheezing. She does not remember any antecedent URI. She had COVID 2 years ago but this did not necessarily worsen her cough. She has been treated for allergies and possible GERD without relief. She was briefly tried on Trelegy but this made her feel worse. PFTs normal. No symptoms to suggest autoimmune disorder, no prior use of medications known to cause fibrosis. However, she has two parrots. Has family history of pulmonary fibrosis including father, paternal aunt and cousin. DATA: PFT 08/16/2024 FVC 3.06 L 104% FEV1 0.65 L 117% FEV1/FVC 87% FEF 25-75% 3.55 L 100% No change with bronchodilators TLC 4.65 L 87% RV 1.51 L 72% DLCO 15.99 82% Imaging / Diagnostic Studies: Chest [facility] 08/15/2024: Chest CT shows peripheral reticulations and mosaic attentuation PAST MEDICAL HISTORY Diagnosis Date Acid reflux Questionable Environmental allergies Hypertension Palpitations ALLERGIES No Known Allergies dilTIAZem CR (TIAZAC, TAZTIA XT) 180 mg 24 hr capsule Take 1 capsule by mouth every afternoon. Telmisartan 20 mg tablet Take 20 mg by mouth once daily. indapamide (LOZOL) 1.25 mg tablet Take 1.25 mg by mouth once daily. MULTIVITAMIN ORAL Take by mouth once daily. 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 FAMILY HISTORY Problem Relation Age of Onset other (Idiopathic Pulmonary Fibrosis) Father Breast Cancer Mother Cervical Cancer Mother other (Pancreatic Cancer) Mother other (Heart Attack) Brother Coronary Artery Disease Brother CABG other (CHF) Brother Open Heart Surgery other (A-Fib) Brother had ablation to treat PAST SURGICAL HISTORY Procedure Laterality Date ANKLE SURGERY HX Right 01/24/2015 x2 COLONOSCOPY FLX DX W/COLLJ SPEC WHEN PFRMD 02/27/2019 Colonoscopy PAST SURGICAL HISTORY OF 1986 ectopic PMH, Social history, family history and surgical history reviewed and updated in EMR REVIEW OF SYSTEMS: CONSTITUTIONAL: No fevers, chills, nightsweats, unintended weight loss HEENT: Denies current nasal congestion/sinus symptoms, allergy problems. EYES: Wears glases CARDIOVASCULAR: No chest pain, dyspnea, palpitations, orthopnea. Some edema PULM: See HPI GI: No dysphagia/odynophagia, problematic reflux NEURO: No balance problems, peripheral weakness/paresthesias or numbness of concern. MUSC-SKEL: Hand arthritis INTEGUMENTARY: No skin changes PHYSICAL EXAMINATION: BP 117/73 Pulse 78 Wt 202 lb 9.6 oz (91.9kg) SpO2 96% General Appearance: Obese female, NAD. Skin: Skin color, texture, turgor normal, no suspicious rashes or lesions. Head: Normocephalic, no masses, lesions, tenderness or abnormalities. Eyes: Sclera, conjunctiva normal. Oropharynx: No oral lesions. Neck: No masses or adenopathy. Lungs: Not labored, no wheezes or crackles. Heart: RRR, no murmur. Extremities: Mild edema, no clubbing. Assessment/Plan: ILD -No previous imaging for comparison the assess time line -Most concerned about possible chronic HP -HP panel, autoimmune serologies -May need ILD consultation/assessment for lung biopsy -Has strong family history of pulmonary fibrosis which raises the question on familial IPF but her age is somewhat atypical for onset Chronic cough -Likely due to ILD -Allergic component raises question of cough asthma. Hold on methacholine challenge for now I spent a total of 76 minutes on the date of the service which included preparing to see the patient, [id number] patient care, completing clinical documentation, performing an appropriate physical exam, obtaining and/or reviewing separately obtained history, counseling and educating the patient/family/caregiver, ordering medications, tests, or procedures, and independently interpreting results (not separately reported). Yoselyn Alvarado MD [facility] [place] [facility] Evaluation note Diagnosis Onset Date URI (upper respiratory infection) acute [facility] Work Phone: Evaluation noteNo assessment information available [facility] Work Phone: Evaluation note* Diagnosis ILD (interstitial lung disease) (HCC)- Primary Postinflammatory pulmonary fibrosis Chronic cough Cough [facility]* Diagnosis ILD (interstitial lung disease) (HCC)- Primary Postinflammatory pulmonary fibrosis [facility] Diagnosis ILD (interstitial lung disease) (HCC)- Primary Postinflammatory pulmonary fibrosis [facility]* Diagnosis ILD (interstitial lung disease) (HCC)- Primary Postinflammatory pulmonary fibrosis Chronic cough Cough Gastroesophageal reflux disease without esophagitis Esophageal reflux Family history of pulmonary fibrosis Family history of other chronic respiratory conditions [place] hair Variations in hair color [facility] Diagnosis ILD (interstitial lung disease) (HCC) Postinflammatory pulmonary fibrosis [facility] Diagnosis ILD (interstitial lung disease) (HCC) Postinflammatory pulmonary fibrosis [facility] Diagnosis Interstitial lung disease (HCC)- Primary Postinflammatory pulmonary fibrosis ILD (interstitial lung disease) (HCC) Postinflammatory pulmonary fibrosis Family history of pulmonary fibrosis Family history of other chronic respiratory conditions [place] hair Variations in hair color Family history of pancreatic cancer Family history of malignant neoplasm of gastrointestinal tract Family history of breast cancer Family history of malignant neoplasm of breast Family history of kidney cancer Family history of malignant neoplasm of kidney Family history of interstitial lung disease Family history of other chronic respiratory conditions Lung transplant candidate [facility] Diagnosis Onset Date Resolution Status Admit Date Interstitial lung disease acute January 03, 2025 9:30am BRYANNA (obstructive sleep apnea) acute January 03, 2025 9:30am [facility] Work Phone: Reason for referral (narrative)No [facility] for [facility]: Summary Purpose Family History No Family History Records FoundNo Family History Records FoundNo Family History Records FoundNo Family History Records Found Advance Directives No Advanced Directives Records FoundDocuments on File Type Date Recorded Patient Clinical Informaticist Expl anation Advance Directive(s) 02/27/2019 11:03 AM Advance Directive(s) 02/27/2019 11:02 AM Documents on File Type Date Recorded Patient Clinical Informaticist Expl anation Advance Directive(s) 02/27/2019 11:03 AM Advance Directive(s) 02/27/2019 11:02 AM Chief Complaint and Reason for Visit Chief Complaint COVID TEST LT SHOULDER. RX HERE Reason for Visit URI (upper respirato ry infection) Chief Complaint LT SHOULDER. RX HERE Chief Complaint Admit Date SCREENING June 21, 2024 3:11pm Cough August 04, 2024 1 :57pm PULM FIBROSIS ABNORMAL CHEST XRAY 2024 1:29pm Cough August 16, 2024 6 :37am CARDIOMEGALY September 13, 2024 9:52 am Chief Complaint Admit Date CARDIOMEGALY September 13, 2024 9:52 am SLEEP APNEA, UNSPECIFIED October 26 8:00pm Sleep problems/INTERSTITIAL LUNG DISEASE January 03, 2025 9:30am Reason for Visit Admit Date Interstitial lung disease January 03 9:30am BRYANNA (obstructive sleep apnea) January 03, 2025 9:30am Additional Source Comments INFORMATION SOURCE (unrecogn ized section and content) DATE CREATED AUTHOR 01/05/2018 [facility] DATE CREATED AUTHOR AUTHOR'S ORGANIZ ATION 01/05/2018 [facility] DATE CREATED AUTHOR AUTHOR'S ORGANIZ ATION 01/04/2025 [facility] DATE CREATED AUTHOR AUTHOR'S ORGANIZ ATION 01/05/2025 [facility] Goals (unrecognized section and content) Goals may be documented in a n alternate sectionGoals may be documented in an alternate sectionGoals may be documented in an alternate sectionGoals may be documented in an alternate sectionGoals may be documented in an alternate sectionGoals may be documented in an alternate section Care Teams (unrecognized sec tion and content) Team Status: Active Member Role Status Dates Dr. Cris Rizzo MD Primary Care Provider Active Team Status: Inactive Member Role Status Dates Dr. Cris Rizzo MD Primary Care Provider Active Start: June 21, 2024 End: June 21, 2024 JOSLYN DENSON Attending Provider Active Start: D ec2023 End: June 21, 2024 JOSLYN DENSON Referring Provider Active Start: D ec2023 End: June 21, 2024 Team Status: Inactive Member Role Status Dates Dr. Cris Rizzo MD Primary Care Provider Active Start: August 04, 2024 End: August 04, 2024 Dr. Cris Rizzo MD Attending Provider Active St art: August 04, 2024 End: August 04, 2024 Dr. Cris Rizzo MD Referring Provider Active St art: August 04, 2024 End: August 04, 2024 Team Status: Inactive Member Role Status Dates Dr. Cris Rizzo MD Primary Care Provider Active Start: August 15, 2024 End: August 15, 2024 Dr. Cris Rizzo MD Attending Provider Active St art: August 15, 2024 End: August 15, 2024 Dr. Cris Rizzo MD Referring Provider Active St art: August 15, 2024 End: August 15, 2024 Team Status: Inactive Member Role Status Dates Dr. Cris Rizzo MD Primary Care Provider Active Start: August 16, 2024 End: August 16, 2024 Dr. Cris Rizzo MD Attending Provider Active St art: August 16, 2024 End: August 16, 2024 Dr. Cris Rizzo MD Referring Provider Active St art: August 16, 2024 End: August 16, 2024 Team Status: Inactive Member Role Status Dates Dr. Cris Rizzo MD Primary Care Provider Active Start: September 13, 2024 End: September 13, 2024 Dr. Jayme Velazquez MD Attending Provider Active Start: September 13, 2024 End: September 13, 2024 Dr. Jayme Velazquez MD Referring Provider Active Start: September 13, 2024 End: September 13, 2024 Team Status: Active Member Role Status Dates Dr. Cris Rizzo MD Primary Care Provider Active Start: September 13, 2024 Dr. González Cole MD Attending Provider Active Start: September 13, 2024 Team Status: Active Member Role Status Dates Dr. Cris Rizzo MD Primary Care Provider Active Start: June 21, 2024 Kae ROOT NP-C Attending Provider Active Start: June 21, 2024 Kae ROOT NP-C Referring Provider Active Start: June 21, 2024 Team Status: Inactive Member Role Status Dates Dr. Cris Rizzo MD Primary Care Provider, Attending Eva de anda Active Team Status: Inactive Member Role Status Dates Dr. Cris Rizzo MD Primary Care Provide r, Attending Provider, Referring Provider Active Team Status: Inactive Member Role Status Dates Dr. Cris Rizzo MD Primary Care Provider Active Dr. Hardeep Oconnor MD Attending Provider Active Scientific Investigator Relationship Specialty Start Date End Date Cris Rizzo MD [address] [place] [address] PCP - General Family Medicine 06/03/21 Scientific Investigator Relationship Specialty Start Date End Date Cris Rizzo MD [address] [place], [place] [id number] PCP - General Family Medicine 06/03/21 Scientific Investigator Relationship Specialty Start Date End Date Cris Rizzo MD [address] [place], [place] [id number] PCP - General Family Medicine 06/03/21 Scientific Investigator Relationship Specialty Start Date End Date Cris Rizzo MD [address] [place], [place] [id number] PCP - General Family Medicine 06/03/21 Scientific Investigator Relationship Specialty Start Date End Date Cris Rizzo MD [address] [place] [address] PCP - General Family Medicine 06/03/21 Scientific Investigator Relationship Specialty Start Date End Date Cris Rizzo MD [address] [place] [address] PCP - General Family Medicine 06/03/21 Scientific Investigator Relationship Specialty Start Date End Date Cris Rizzo MD [address] [facility] [place], [place] [id number] PCP - General Family Medicine 06/03/21 Scientific Investigator Relationship Specialty Start Date End Date Cris Rizzo MD [address] [facility] [place], [place] [id number] PCP - General Family Medicine 06/03/21 Scientific Investigator Relationship Specialty Start Date End Date Cris Rizzo MD [address] [facility] [place], [place] [id number] PCP - General Family Medicine 06/03/21 Scientific Investigator Relationship Specialty Start Date End Date Cris Rizzo MD [address] [facility] [place], [place] [address] PCP - General Family Medicine 06/03/21 Team Status: Inactive Member Role Status Dates Dr. Cris Rizzo MD Primary Care Provider Active Start: October 26, 2024 End: October 26, 2024 Dr. Cris Rizzo MD Attending Provider Active St art: October 26, 2024 End: October 26, 2024 Dr. Cris Rizzo MD Referring Provider Active St art: October 26, 2024 End: October 26, 2024 Team Status: Inactive Member Role Status Dates Dr. Cris Rizzo MD Primary Care Provider Active Start: January 03, 2025 End: January 03, 2025 Dr. Cris Rizzo MD Referring Provider Active St art: January 03, 2025 End: January 03, 2025 Dr. Mayito Alvarado DO Attending Provider Active S tart: January 03, 2025 End: January 03, 2025 Source Comments (unrecognize d section and content) In the event this informatio n is protected by the Federal Confidentiality of Alcohol and Drug Abuse Patient Records regulations: The Federal rules restrict any use of the information to criminally investigate or prosecute any alcohol or drug abuse patient.[facility] the event this information is protected by the Federal Confidentiality of Alcohol and Drug Abuse Patient Records regulations: The Federal rules restrict any use of the information to criminally investigate or prosecute any alcohol or drug abuse patient.[facility] the event this information is protected by the Federal Confidentiality of Alcohol and Drug Abuse Patient Records regulations: The Federal rules restrict any use of the information to criminally investigate or prosecute any alcohol or drug abuse patient.[facility] the event this information is protected by the Federal Confidentiality of Alcohol and Drug Abuse Patient Records regulations: The Federal rules restrict any use of the information to criminally investigate or prosecute any alcohol or drug abuse patient.[facility] the event this information is protected by the Federal Confidentiality of Alcohol and Drug Abuse Patient Records regulations: The Federal rules restrict any use of the information to criminally investigate or prosecute any alcohol or drug abuse patient.[facility] HospitalIn the event this information is protected by the Federal Confidentiality of Alcohol and Drug Abuse Patient Records regulations: The Federal rules restrict any use of the information to criminally investigate or prosecute any alcohol or drug abuse patient.[facility] HospitalIn the event this information is protected by the Federal Confidentiality of Alcohol and Drug Abuse Patient Records regulations: The Federal rules restrict any use of the information to criminally investigate or prosecute any alcohol or drug abuse patient.[facility] HospitalIn the event this information is protected by the Federal Confidentiality of Alcohol and Drug Abuse Patient Records regulations: The Federal rules restrict any use of the information to criminally investigate or prosecute any alcohol or drug abuse patient.[facility] HospitalIn the event this information is protected by the Federal Confidentiality of Alcohol and Drug Abuse Patient Records regulations: The Federal rules restrict any use of the information to criminally investigate or prosecute any alcohol or drug abuse patient.[facility] HospitalIn the event this information is protected by the Federal Confidentiality of Alcohol and Drug Abuse Patient Records regulations: The Federal rules restrict any use of the information to criminally investigate or prosecute any alcohol or drug abuse patient.[facility] HospitalIn the event this information is protected by the Federal Confidentiality of Alcohol and Drug Abuse Patient Records regulations: The Federal rules restrict any use of the information to criminally investigate or prosecute any alcohol or drug abuse patient.[facility] Reason for Visit (unrecogniz ed section and content) Reason Comments Cough Reason Comments Orders Reason Comments New ILD Reason Comments Request Outside Medical Records PFTs Reason Comments Consult ILD Breathing Problem Specialty Diagnoses / Procedures Referred By Contac t Referred To [facility] Diagnoses ILD (interstitial lung disease) (HCC) Procedures LUNG DIFFUSION CAPACITY (DLCO) DIFFUSING CAPACITY Nathalia Barraza, RICKY.[employer] [address] [address] Phone: tel: fax: [place] [phone] Referral ID Status Reason Start Date Expiration Date V isits Requested Visits Authorized [id number] Closed Auto-Generate d Referral 10/03/2024 11/02/2025 1 1 Reason Comments Spirometry Specialty Diagnoses / Procedures Referred By Contac t Referred [facility] Diagnoses ILD (interstitial lung disease) ([facility]) Procedures SPIROMETRY - BASELINE AND POST DILATOR BRNCDILAT RSPSE SPMTRY PRE&POST-BRNCDILAT ADMN Belgica Mclain MD [address] [place] [phone] Phone: tel: fax: [place] [address] Referral ID Status Reason Start Date Expiration Date V isits Requested Visits Authorized [id number] Closed Auto-Generate d Referral 10/24/2024 11/23/2025 1 1 Specialty Diagnoses / Procedures Referred By Contac t Referred To [facility] Diagnoses ILD (interstitial lung disease) ([facility]) Procedures LUNG DIFFUSION CAPACITY (DLCO) DIFFUSING CAPACITY Belgica Mclain MD [address] [place] [phone] Phone: tel: fax: [place] [address] Referral ID Status Reason Start Date Expiration Date V isits Requested Visits Authorized [id number] Closed Auto-Generated Referral Patient Cleared - INN Insurance Found 10/24/2024 11/23/2025 1 1 Reason Comments Pulmonary Fibrosis Specialty Diagnoses / Procedures Referred By Contac t Referred To Contact Diagnoses ILD (interstitial lung disease) (HCC) Family history of pulmonary fibrosis [place] hair Procedures CONSULT TO MEDICAL GENETICS - HEMATOLOGY OFFICE/OUTPATIENT [facility] 60 MINUTES MEDICAL GENETICS COUNSELING EACH 30 MINUTES Belgica Mclain MD [address] [place] [phone] Phone: tel: fax: [facility] [address] [place] [address] Referral ID Status Reason Start Date Expiration Date V isits Requested Visits Authorized [id number] Closed PCP Requested Referral Auto-Generated Referral 10/24/2024 10/24/2025 1 1 FOR RECORDS PERTAINING TO PATIENTS WHO ARE [...] BE BASED ON THE PRIMARY CLINICAL RECORDS. [email or web address] provides no warranty or guarantee of the accuracy or completeness of information in this document.
--- OUTSIDE RECORDS SUMMARY | 2025-01-10 22:24 | XMS RPT_ITS | CCD ---
Author Organization [facility] CliniSyca Care Team Providers Care Head Of Store Operations Name Role Phone GROESBECK, ROBERTO Unavailable Unavailable GROESBECK, ROBERTO Unavailable Unavailable GROESBECK, MARIEL JATIN Unavailable Unavailabl e GROESBECK, MARIEL STEINER Unavailable Unavailabl e Dr. Cris Rizzo Primary Care Provider [phone] Cris Rizzo Referring Provider [phone] MILENA Hernandez Attending Provider Matthias SAMSON, Cris Pop Primary Care Provider [phone] Cris Rizzo MD Primary Care Provider Joslyn RESEARCH GROUP DIRECTOR-CKae Attending Provider [phone] Joslyn RESEARCH GROUP DIRECTOR-CKae Referring Provider [phone] Cris Rizzo MD Attending Provider [phone] Cris Rizzo MD Referring Provider [phone] Jayme Velazquez MD Attending Provider [phone] Dr. Jayme Velazquez MD Referring Provider Dr. González Cole MD Attending Provider KAE JORGENSEN Attending Provider [phone] KAE JORGENSEN Referring Provider Dr. Cris Rizzo MD Primary Care Provider Dr. Cris Rizzo MD Attending Provider [phone] Cris Rizzo MD Referring Provider [phone] Mayito Alvarado DO Attending Provider Cris Rizzo Attending Unavailable Cris Rizzo Referring Unavailable Cris Rizzo Primary Care Unavailable Cris Rizzo Referring Unavailable [...] Facility Pulmonary Visit Reporton Pulmonary Visit Report [facility] Pulmonary Medicine of [address] [place] [address] OFFICE VISIT Date of Service: 01/03/25 MR#: [id number] Acct: [id number] Name: RUBI MEJIA Rep #: [id number] : 1950 Provider: Dr. Mayito Alvarado DO Age/Sex: 74/F Location: [facility] [place] Status: Signed Assessment and Plan Assessment and [...] being followed in the ILD clinic at [facility] over concerns for chronic hypersensitivity pneumonitis. Will [...] Dr. Mclain at the ILD clinic at [facility]. She was evaluated by the aforementioned provider [...] Intake Visit Reasons: Sleep problems/INTERSTITIAL LUNG DISEASE Claims Sorter Required: No DME Vendor: n/a Accompanied by: [...] you fallen in the past year?: Yes [facility] Social History (Updated 01/03/25 @ 09:43 by [...] atrophy Extr (more content not included)... Normal [facility] SEND OUT TST 2024 [facility] [place] RESULTS 1 View results in Scanned Documents link when available Normal [facility] Comment on above: Order Comment: Speci men Type: BLOOD SPECIMEN [facility]ing Facility: [facility] Address: [address] [place] [address] Performed By: #### 5 1775-5, 48658-3, 69843-5, 00221-2, 85375-2, 57160-7, 05279-3, 02840-4 #### [facility] CLIA [id number] [address] [place] [address] STATES OF LILY REFERRAL LAB 1 (DROP-DOWN) [facility] Normal [facility] Comment on above: Order Comment: Speci men Type: BLOOD SPECIMEN [facility]ing Facility: [facility] Address: [address] [place] [address] Performed By: #### 5 1775-5, 12284-6, 64631-0, 04406-6, 27174-1, 96166-0, 05265-4, 45605-8 #### [facility] CLIA [id number] [address] [place] [address] [place] LILY TEST 1 Custom Pulmonary Fibrosis, Multi-Cancer, and Leukemia/MDS panel plus preliminiary evidence genes Normal [facility] Comment on above: Order Comment: Speci men Type: BLOOD SPECIMEN [facility]ing Facility: [facility] Address: [address] [place] [address] Performed By: #### 5 1775-5, 89952-8, 56842-4, 05580-8, 24758-1, 10092-0, 69370-0, 32293-7 #### [facility] CLIA [id number] [address] [place], [place] [address] [place] OF [place] LUNG DIFFUSION CAPACITY (NAYAN O)on 12-11-2024 DLCO (ml/min/mmHg) 15.58 ml/min/mmHg [facility] DLCO LLN (ml/min/mmHg) 14.34 ml/min/mmHg [facility] DLCO PREDICTED (ml/min/mmHg) 19.13 ml/min/mmHg [facility] DLCO ULN (ml/min/mmHg) 25.05 ml/min/mmHg [facility] DLCO/VA (ml/min/mmHg/L) 0.04 ml/min/mmHg/L [facility] DLCO/VA PREDICTED (ml/min/mmHg/L) 0.04 ml/min/mmHg/L [facility] DLCO/VAcor (ml/min/mmHg/L) 0.04 ml/min/mmHg/L [facility] DLCOcor (ml/min/mmHg) 15.3 ml/min/mmHg [facility] DLCOcor PREDICTED (ml/min/mmHg) 19.13 ml/min/mmHg [facility] ERV PREDICTED (L) 0.93 L/S [facility] FEF25% POST (L/S) 6.26 L/S [facility] FEF25% PRE (L/S) 6.91 L/S [facility] FRX69-82% LLN (L/S) 0.82 L/S [facility] UIH78-09% POST (L/S) 2.7 L/S [facility] UWL36-70% PRE (L/S) 2.58 L/S [facility] LIS15-09% PREDICTED (L/S) 1.82 L/S [facility] FEF75% LLN (L/S) 0.16 L/S [facility] FEF75% POST (L/S) 0.89 L/S [facility] FEF75% PRE (L/S0 0.96 L/S [facility] FEF75% PREDICTED (L/S) 0.44 L/S [facility] FEF75% ULN (L/S) 1.18 L/S [facility] FET POST (S) 5.25 S [facility] FET PRE (S) 6.95 S [facility] FEV1 LLN (L) 1.49 L [facility] FEV1 PRE (L) 2.45 L [facility] FEV1 PREDICTED (L) 2.15 L [facility] FEV1 ULN (L) 2.77 L [facility] FEV1/FVC LLN (%) 65 % [facility] FEV1/FVC POST (%) 87 % [facility] FEV1/FVC PRE (%) 81 % [facility] FEV1/FVC PREDICTED (%) 78 % [facility] FEV1_POST (L) 2.43 L [facility] FVC LLN (L) 1.96 L [facility] FVC POST (L) 2.8 L [facility] FVC PRE (L) 3.01 L [facility] FVC PREDICTED (L) 2.78 L [facility] FVC ULN (L) 3.62 L [facility] IC PREDICTED (L) 1.85 L/S [facility] PEF LLN (L/S) 3.83 L/S [facility] PEF POST (L/S) 7.63 L/S [facility] PEF PRE (L/S) 7.66 L/S [facility] PEF ULN (L/S) 7.32 L/S [facility] SVC LLN (L) 1.96 L/S [facility] SVC PREDICTED (L) 2.78 L/S [facility] SVC ULN (L) 3.62 L/S [facility] VA (L) 4.08 L [facility] VA PREDICTED (L) 4.63 L [facility] LUNG DIFFUSION CAPACITY (DLCO) [facility] [address] [place] [address] Test Date: 2024-12-11 Pat Name: RUBI MEJIA Department: Room: Gender: Female Taker Away: : 1950 Requested By: Order Number: [id number] Reading MD: Yoselyn Alvarado MD Interpretive Statements [...] 18:02:48 EDT by Yoselyn Alvarado MD ID: [id number] Name: RUBI MEJIA Race: White Ht: 64.65 [...] 90-100 1.82 4 FIVC 2.47 2.35 -4 [id number] 2.58 0.82 1.82 3.25 141 0.94 2.70 [...] 78 % FEV1/FVC_LLN (%) : 65 % LES20_ZMB (L/S) : 6.91 L/S ELE71_UZXV (L/S) : 6.26 L/S TEY17_HBM (L/S) : 0.96 L/S JKP79_DRIX (L/S) : 0.89 L/S SMD50_VPWT (L/S) : 0.44 L/S OSK30_OTC (L/S) : 0.16 L/S DVU50_PJB (L/S) : 1.18 L/S YOI87-77%_PRE (L/S) : 2.58 L/S YYZ90-71%_POST (L/S) : 2.70 L/S BKP47-43%_PRED (L/S) : 1.82 L/S WYS23-92%_LLN (L/S) : 0.82 L/S PEF_PRE (L/S) : [...] ml/min/mmHg DLCO/VACOR (ML/MIN/MMHG/L) : 0.04 ml/min/mmHg/L Normal [facility] No Panel Informationon 12-11 [facility] [address] [place] [address] Test Date: 2024-12-11 Pat Name: RUBI MEJIA Department: Room: Gender: Female Taker Away: : 1950 Requested By: Order Number: [id number] Reading MD: Yoselyn Alvarado MD Interpretive Statements [...] 18:02:48 EDT by Yoselyn Alvarado MD ID: [id number] Name: RUBI MEJIA Race: White Ht: 64.65 [...] 90-100 1.82 4 FIVC 2.47 2.35 -4 BMB45-20 2.58 0.82 1.82 3.25 141 0.94 2.70 [...] with 2 acceptable maneuvers. PULMONARY FUNCTION LAB [facility] SPIROMETRY - BASELINE AND PO ST DILATORon 12-11-2024 SPIROMETRY - BASELINE AND POST DILATOR [facility] [address] [place] [address] Test Date: 2024-12-11 Pat Name: RUBI MEJIA Department: Room: Gender: Female Taker Away: : 1950 Requested By: Order Number: [id number] Reading MD: Yoselyn Alvarado MD Interpretive Statements [...] 18:02:48 EDT by Yoselyn Alvarado MD ID: [id number] Name: RUBI MEJIA Race: White Ht: 64.65 [...] 90-100 1.82 4 FIVC 2.47 2.35 -4 WJG16-63 2.58 0.82 1.82 3.25 141 0.94 2.70 [...] DLCO met with [address]. Normal [facility] CNOVon 10-24-2024 CNOV Office Visit ([facility] ) RUBI MEJIA ([id number]) 1950 F Date Time Provider Department 10/24/24 1:00 PM BELGICA MCLAIN [facility] During your visit today, we recorded the [...] in career (more content not included)... Normal [facility] 10-05-2024 [facility] Telephone ([facility]) RUBI MEJIA ([id number]) 1950 F Date Time Provider Department 10/05/24 BELGICA MCLAIN [facility] During your visit today, we recorded the following information about you: Carlos Ambrocio, RN 10/05/2024 12:12 PM Signed Pt called in stating she is requesting Aug 2024 PFTs from [facility] to be faxed over for upcoming appointment. Allergies As of Date: 10/05/2024 (No Known Allergies) Date Reviewed: 09/05/2024 Reviewed by: Yoselyn Alvarado MD - Fully Assessed Reason for Visit: Request Outside Medical Records [4409] Cmt: PFTs Prescriptions as of 10/05/2024 - [...] Encounter Status:Closed by CARLOS AMBROCIO on 10/05/24 [facility] 10-03-2024 JEFERSONN Telephone (PULMMN) RUBI MEJIA ([id number]) 1950 F Date Time Provider Department 10/03/24 KLARISSA PINEDA During your visit today, we recorded the following information about you: Klarissa Pineda, RN 10/03/2024 9:29 AM Signed Interstitial Lung Disease Referral Intake Patient: Rubi Mejia Date: October 03, 2024 9:27 AM Schedulers: --Please schedule patient with any ILD provider ILD Dr. Toya Joiner: [facility]. Dr. Nikunj Cherry: [facility] AND [place] (2023). Dr. Facundo Gore: [facility] AND [facility]. Dr. Carolyne Rueda: [facility] AND [place]. Dr. Karolina Mercedes: [facility]. ILD/Sarcoid Dr. Belgica Mclain: [facility] AND [place]. Dr. Fazal Sy: [facility] Dr. Laurent Dennis: [facility] Dr. Thiago Gonzalez: [facility], [facility] AND [place]. Dr. David Holbrook: [facility] AND [place]. Dr. Rosemary Mcdonough: [facility], [facility]) AND [facility] Sarcoid/ILD Pulmonary [place]: [facility] ( afternoon). Dr. Karolina Mercedes: [facility]. AND [place]. ILD/Sarcoid/Beryllium/ Occupational Dr. Alice Long: [facility] [place], [place], [place], AND [place]. Testing needed: Spirometry w/ bronchodilator if obstructed and DLCO. MyChart: Already set up. *Remind patient to bring imaging disc in hand. Consult information: Referred by: Dr. Carlos Bhat Office name/city: [facility] Diagnosis: ILD- likely IPF CT chest: yes, imported Most recent date: 08/2024 Location performed: [facility] Biopsy: None Type: Date: Location performed: Current [...] (HCC) [J84.9] Order(s):SPIROMETRY WITH DILATOR IF OBSTRUCTED [9107034] Order #: [id number]: 1 FUTURE LUNG DIFFUSION CAPACITY (DLCO) [2087115] Order #: [id number]: 1 FUTURE Prescriptions as of 10/03/2024 - [...] Encounter Status:Closed by KLARISSA PINEDA on 10/03/24 [facility] 09-27-2024 CNPN Telephone (PULMWS) RUBI MEJIA ([id number]) 1950 F Date Time Provider Department 09/27/24 [...] Encounter Status:Closed by YOSELYN ALVARADO on 09/27/24 [facility] Echo Completeon 09-13-2024 Echo Complete [facility] [address] [place] [address] Echo Complete 09/13/24 1030 MR#: [id number] Acct: [id number] Name: RUBI MEJIA Rep #: [id number] : 1950 73 From: González Cole MD Attending Dr: Dr. Jayme Velazquez MD Status: REG CLI Ordering Dr: Jayme Velazquez MD Date: 09/13/24 Location: [facility] Sex: F C Admitted: Reason For Study [...] Dictated: 09/13/24 1030 Date Transcribed: 09/13/24 [address] [employer]: Signed Normal [facility] Echocardiogram study reportO rdered By: González Cole on 09-13-2024 Study report [facility] [address] [place] [address] Echo Complete 09/13/24 1030 MR#: [id number] Acct: [id number] Name: RUBI MEJIA Rep #:[id number] : 1950 73 From: González Cole MD Attending Dr: Dr. Jayme Velazquez MD Status: REG CLI Ordering Dr: Jayme Velazquez MD Sam e: 09/13/24 Location: [facility] Sex: F C Admitted: Reason For Study [...] Dictated: 09/13/24 1030 Date Transcribed: 09/13/24 [address] [employer]: Signed [facility] Work Phone: LEWIS BY IFA SCREENon 09-05-19 Nuclear Ab Ql (S) Negative Normal Negative [facility] Comment on above: Order Comment: Speci men Type: BLOOD SPECIMEN [facility] Facility: [facility] Address: [address] [place] [address] Result Comment: Anti -nuclear antibody test is used as an aid in diagnosis of systemic autoimmune diseases. Where positive and clinically warranted, follow-up using disease-specific testing is recommended. Low positive titers are not uncommon with advanced age, certain chronic infections, and malignancies among others. Test methodology: Indirect fluorescence immunoassay (IFA) using HEp-2 cells. Performed By: #### 5 1775-5, 75704-7, 74564-6, 14377-0, 64651-3, 05788-4, 59945-2, 49062-8 #### [facility] CLIA [id number] [address] [place] [address] [place] ANTI NEUTRO CYTO ABon 2024 INTERPRETATION (ANCA) Equivocal staining seen on the ethanol (indirect immunofluorescence screen) slide but negative results on follow up confirmatory testing. Anti-nuclear antibody test may be considered. Clinical correlation is required. Normal [facility] Comment on above: Order Comment: Speci men Type: BLOOD SPECIMEN [facility]ing Facility: [facility] Address: [address] [place] [address] Performed By: #### 5 1775-5, 25486-1, 23180-2, 10482-7, 94502-4, 26549-6, 13635-2, 30940-5 #### [facility] CLIA [id number] [address] [place] [address] [place] Myeloperoxidase Ab Qn (S) <0.2 Normal <1.[address] [facility] Comment on above: Order Comment: Speci men Type: BLOOD SPECIMEN Ordering Facility: [facility] Address: [address] [place] [address] Performed By: #### 5 1775-5, 44639-4, 98297-8, 39838-3, 65420-5, 03204-8, 04738-9, 12765-7 #### [facility] CLIA [id number] [address] [place] [address] [place] Neutrophil cytoplasmic Ab.classic IF Ql (S) Negative Normal Negative [facility] Comment on above: Order Comment: Speci men Type: BLOOD SPECIMEN [facility]ing Facility: [facility] Address: [address] [place] [address] Performed By: #### 5 1775-5, 84710-3, 84300-7, 93255-1, 67652-2, 27250-8, 69736-9, 09040-0 #### [facility] CLIA [id number] [address] [place] [address] [place] Neutrophil cytoplasmic Ab.perinuclear IF Ql (S) Negative Normal Negative [facility] Comment on above: Order Comment: Speci men Type: BLOOD SPECIMEN [facility]ing Facility: [facility] Address: [address] [place] [address] Performed By: #### 5 1775-5, 38109-2, 62272-3, 39290-2, 63055-5, 74311-8, 42280-3, 78851-0 #### [facility] CLIA [id number] [address] [place] [address] [place] Proteinase 3 Ab Qn (S) <0.2 Normal <1.0 [facility] Comment on above: Order Comment: Speci men Type: BLOOD SPECIMEN [facility]ing Facility: [facility] Address: [address] [place] [address] Performed By: #### 5 1775-5, 57306-1, 59512-4, 43156-1, 71539-9, 10012-2, 57402-3, 55783-3 #### [facility] CLIA [id number] [address] [place] [address] OF LILY STAFF REVIEW (ANCA) Reviewed by Tavon Love, Ph.D D(CLARISSA) Normal [facility] Comment on above: Order Comment: Speci men Type: BLOOD SPECIMEN [facility] Facility: [facility] Address: [address] [place] [address] Performed By: #### 5 1775-5, 58308-4, 69182-5, 69536-7, 97071-3, 16632-5, 38622-2, 82139-0 #### [facility] CLIA [id number] [address] [place] [address] STATES OF [facility] CNOVon 09-05-2024 CNOV Office Visit (PULMWS ) RUBI MEJIA ([id number]) 1950 F Date Time Provider Department 09/05/24 12:45 PM YOSELYN ALVARADO PULMWS During your visit today, we recorded the following information about you: Pulse Blood pressure Weight 78/minute 117/73 91.9 kg Yoselyn Alvarado MD 09/05/2024 8:05 PM Signed . Respiratory [place] Note Patient name: Rubi Mejia PCP: Cris [...] 82% Imaging / Diagnostic Studies: Chest CT [facility] 08/15/2024: Chest CT shows peripheral reticulations [...] which included preparing to see the patient, rmhe-uw-scap patient care, completing clinical documentation, performing an appropriate physical exam, obtaining and/or reviewing separately obtained history, counseling and e (more content not included)... Normal [facility] Centromere Ab IF Ql (S)on Centromere Ab Qn (S) <0.2 Normal <1.0 [facility] Comment on above: Order Comment: Speci jean Type: BLOOD SPECIMEN [facility]ing Facility: [facility] Address: [address] [place] [address] Result Comment: Anti -centromere antibody is used as in aid in diagnosis of systemic sclerosis. Clinical correlation is required. Test Methodology: Multiplex flow immunoassay. Performed By: #### 5 1775-5, 46221-6, 26730-9, 83494-1, 80797-8, 70834-6, 50717-1, 64568-4 #### [facility] CLIA [id number] [address] [place], [place] [address] [address] [place] CENTROMERE AB QUAL Negative Normal Negative [facility] Comment on above: Order Comment: Lacy pena Type: BLOOD SPECIMEN Ordering Facility: [facility] Address: [address] [place] [address] Performed By: #### 5 1775-5, 55742-3, 33094-3, 03407-1, 06440-0, 05212-6, 56934-8, 23330-8 #### [facility] CLIA [id number] [address] [place] [address] [place] Chromatin Ab Qnon 09-05-2024 CHROMATIN AB QUAL Negative Normal Negative [facility] Comment on above: Order Comment: Speci men Type: BLOOD SPECIMEN [facility]ing Facility: [facility] Address: [address] [place] [address] Performed By: #### 5 1775-5, 67989-1, 99222-3, 38895-3, 83541-5, 15216-0, 29155-0, 80439-7 #### [facility] CLIA [id number] [address] [place] [address] [place] Chromatin Ab SerPl-aCncon Chromatin Ab Qn <0.2 Normal <1.[address] [facility] Comment on above: Order Comment: Speci men Type: BLOOD SPECIMEN [facility]ing Facility: [facility] Address: [address] [place] [address] Result Comment: Test Methodology: Multiplex flow immunoassay. Performed By: #### 5 1775-5, 26290-0, 44327-8, 71755-4, 88171-9, 19508-5, 83222-6, 17923-8 #### [facility] CLIA [id number] [address] [place] [address] [place] Cyclic citrullinated peptide IgG Qnon 09-05-2024 CCP ANTIBODY IGG QUALITATIVE Negative Normal Negative [facility] Comment on above: Order Comment: Speci men Type: BLOOD SPECIMEN [facility]ing Facility: [facility] Address: [address] [place] [address] Performed By: #### 5 1775-5, 70361-2, 50394-6, 59269-4, 36601-2, 13060-7, 62676-7, 92906-5 #### [facility] CLIA [id number] [address] [place] [address] [place] DNA ANTIBODY DS BLDon 2024 DNA ANTIBODY 139 IU/mL Normal <=[address] [facility] Comment on above: Order Comment: Speci men Type: BLOOD SPECIMEN [facility]ing Facility: [facility] Address: [address] [place] [address] Result Comment: Nega tive: <200 IU/mL Equivocal: 201-300 IU/mL Moderate Positive: 301-800 IU/mL Strong Positive: >801 IU/mL Performed By: #### 5 1775-5, 42596-7, 98161-0, 00631-3, 49515-7, 54550-6, 00444-8, 75800-2 #### [facility] CLIA [id number] [address] [place] [address] [place] DNA ANTIBODY QUALITATIVE INTERPRETATION Negative Normal Negative [facility] Comment on above: Order Comment: Speci men Type: BLOOD SPECIMEN [facility]ing Facility: [facility] Address: [address] [place] [address] Performed By: #### 5 1775-5, 40943-1, 36176-4, 44920-1, 98950-3, 38565-4, 23191-9, 23689-8 #### [facility] CLIA [id number] [address] [place] [address] [place] JARED Jo1 Ab Ser-aCncon 2024 Layla-1 extractable nuclear Ab Qn (S) <0.2 Normal <1.[address] [facility] Comment on above: Order Comment: Speci men Type: BLOOD SPECIMEN [facility]ing Facility: [facility] Address: [address] [place] [address] Performed By: #### 5 1775-5, 42242-6, 11097-6, 08064-1, 38806-5, 69292-0, 58683-0, 79669-8 #### [facility] CLIA [id number] [address] [place] [address] [place] JARED EARLY EDUCATION TEACHER Ab Ser-aCncon 2024 Ribonucleoprotein extractable nuclear Ab Qn (S) <0.2 Normal <1.[address] [facility] Comment on above: Order Comment: Speci men Type: BLOOD SPECIMEN [facility]ing Facility: [facility] Address: [address] [place] [address] Performed By: #### 5 1775-5, 86558-4, 40094-3, 64290-2, 20533-7, 15631-4, 90903-7, 46648-7 #### [facility] CLIA [id number] [address] [place] [address] [place] JARED SM IgG Ser-aCncon 2024 Rizzo extractable nuclear IgG Qn (S) <0.2 Normal <1.[address] [facility] Comment on above: Order Comment: Speci men Type: BLOOD SPECIMEN [facility]ing Facility: [facility] Address: [address] [place] [address] Performed By: #### 5 1775-5, 45253-7, 56028-5, 76505-2, 12105-1, 64949-9, 57892-7, 67476-0 #### [facility] CLIA [id number] [address] [place] [address] [place] JARED SS-A Ab Ser-aCncon 09-05 Sjogrens syndrome-A extractable nuclear Ab Qn (S) <0.2 Normal <1.[address] [facility] Comment on above: Order Comment: Speci men Type: BLOOD SPECIMEN [facility]ing Facility: [facility] Address: [address] [place] [address] Result Comment: Test Methodology: Multiplex flow immunoassay. Performed By: #### 5 1775-5, 59905-6, 37140-0, 16585-6, 03209-2, 74141-1, 19834-9, 29543-2 #### [facility] CLIA [id number] [address] [place] [address] [place] JARED SS-B Ab Ser-aCncon 09-05 Sjogrens syndrome-B extractable nuclear Ab Qn (S) <0.2 Normal <1.[address] [facility] Comment on above: Order Comment: Lacy pena Type: BLOOD SPECIMEN [facility]ing Facility: [facility] Address: [address] [place] [address] Result Comment: Anti -SSB (anti-La) antibody is used as an aid in diagnosis of a variety of systemic autoimmune diseases, especially for Sjogren's syndrome and systemic lupus erythematosus. Clinical correlation is required. Test Methodology: Multiplex flow immunoassay. Performed By: #### 5 1775-5, 14362-7, 92843-6, 35596-8, 98674-6, 20124-1, 33589-2, 87967-1 #### [facility] CLIA [id number] [address] [place] [address] [place] HYPERSENSITIVITY PNEUMONITIS EVALUATIONon 09-05-2024 A. FLAVUS AB, PRECIPITIN Not detected Normal None Detected [facility] Comment on above: Order Comment: Lacy pena Type: BLOOD SPECIMEN Ordering Facility: [facility] Address: [address] [place] [address] Performed By: #### 5 1775-5, 69720-3, 19752-7, 73498-1, 71699-3, 00706-9, 36235-8, 51540-6 #### [facility] CLIA [id number] [address] [place] [address] [place] A. FUMIGATUS #6 AB, PRECIPITIN Not detected Normal None Detected [facility] Comment on above: Order Comment: Lacy pena Type: BLOOD SPECIMEN Ordering Facility: [facility] Address: [address] [place] [address] Performed By: #### 5 1775-5, 83461-1, 27413-4, 51546-7, 80448-4, 96069-6, 75062-4, 21451-8 #### [facility] CLIA [id number] [address] [place] [address] [place] A. FUMIGATUS 2 AB, PRECIPITIN Not detected Normal None Detected [facility] Comment on above: Order Comment: Speci men Type: BLOOD SPECIMEN Ordering Facility: [facility] Address: [address] [place] [address] Performed By: #### 5 1775-5, 70467-0, 96073-6, 05412-4, 26867-6, 95791-0, 89340-4, 01358-9 #### [facility] CLIA [id number] [address] [place] [address] [place] A. FUMIGATUS 3 AB, PRECIPITIN Not detected Normal None Detected [facility] Comment on above: Order Comment: Speci men Type: BLOOD SPECIMEN Ordering Facility: [facility] Address: [address] [place] [address] Performed By: #### 5 1775-5, 00994-4, 93293-3, 91486-1, 70794-3, 88224-5, 33757-9, 11188-3 #### [facility] CLIA [id number] [address] [place] [address] [place] A. PULLULANS, AB PRECIPITIN Not detected Normal None Detected [facility] Comment on above: Order Comment: Speci men Type: BLOOD SPECIMEN Ordering Facility: [facility] Address: [address] [place] [address] Performed By: #### 5 1775-5, 54137-9, 50044-8, 09143-5, 62983-8, 17152-9, 93452-0, 44897-3 #### [facility] CLIA [id number] [address] [place] [address] [place] ALLERGEN, ANIMAL, FEATHER MIX IGE Negative Normal Negative [facility] Comment on above: Order Comment: Speci men Type: BLOOD SPECIMEN Ordering Facility: [facility] Address: [address] [place] [address] Performed By: #### 5 1775-5, 37362-5, 98105-6, 02473-7, 84756-6, 54712-2, 40546-3, 77268-4 #### [facility] CLIA [id number] [address] [place] [address] [place] ALLERGEN, FOOD, BEEF, IGE <0.10 Normal <=0.[address] [facility] Comment on above: Order Comment: Speci men Type: BLOOD SPECIMEN Ordering Facility: [facility] Address: [address] [place] [address] Performed By: #### 5 1775-5, 33538-5, 63491-3, 89401-4, 36326-6, 95131-3, 47064-3, 57221-2 #### [facility] CLIA [id number] [address] [place] [address] [place] ALLERGEN, FOOD, PORK IGE <0.10 Normal <=0.[address] [facility] Comment on above: Order Comment: Speci men Type: BLOOD SPECIMEN Ordering Facility: [facility] Address: [address] [place] [address] Performed By: #### 5 1775-5, 92196-6, 20347-2, 58878-4, 98906-7, 78733-6, 30440-3, 97144-7 #### [facility] CLIA [id number] [address] [place] [address] [place] ALLERGEN, FUNGI/MOLD, PHOMA BETAE IGE <0.10 Normal <=0.[address] [facility] Comment on above: Order Comment: Speci men Type: BLOOD SPECIMEN Ordering Facility: [facility] Address: [address] [place] [address] Performed By: #### 5 1775-5, 56549-1, 35142-1, 28420-2, 41093-7, 45920-4, 15733-9, 22144-5 #### [facility] CLIA [id number] [address] [place] [address] [place] ALLERGEN, INTERP, IMMUNOCAP SCORE IGE See Note Normal [facility] Comment on above: Order Comment: Speci men Type: BLOOD SPECIMEN Ordering Facility: [facility] Address: [address] [place] [address] Result Comment: ZELALEMJuan RAFA INTERVAL: Allergen, Interpretation [...] clinical allergy or even anaphylaxis. Performed By: [facility] [address] [place] [address] Rehab Aide: Norman Castillo MD, PhD CLIA Number: [id number] Performed By: #### 5 1775-5, 84143-2, 23980-6, 41869-1, 44968-5, 22553-3, 08949-3, 68163-7 #### [facility] CLIA [id number] [address] [place] [address] [place] [address] [place] FUMIGATUS #1 AB, PRECIPITIN Not detected Normal None Detected [facility] Comment on above: Order Comment: Speci men Type: BLOOD SPECIMEN Ordering Facility: [facility] Address: [address] [place] [address] Performed By: #### 5 1775-5, 00814-8, 92185-9, 12013-0, 98593-8, 26391-2, 46777-7, 25722-4 #### [facility] CLIA [id number] [address] [place] [address] [place] M. FAENI AB, PRECIPITIN Not detected Normal None Detected [facility] Comment on above: Order Comment: Speci men Type: BLOOD SPECIMEN Ordering Facility: [facility] Address: [address] [place] [address] Performed By: #### 5 1775-5, 65849-6, 26106-1, 44032-1, 66412-0, 29868-2, 84186-0, 11540-4 #### [facility] CLIA [id number] [address] [place] [address] [place] PIGEON SERUM AB Not detected Normal None Detected [facility] Comment on above: Order Comment: Speci men Type: BLOOD SPECIMEN Ordering Facility: [facility] Address: [address] [place] [address] Performed By: #### 5 1775-5, 24971-1, 10380-5, 72132-6, 98755-6, 25292-7, 11628-1, 30905-5 #### [facility] CLIA [id number] [address] [place] [address] [place] S. VIRIDIS AB, PRECIPITIN Not detected Normal None Detected [facility] Comment on above: Order Comment: Speci men Type: BLOOD SPECIMEN Ordering Facility: [facility] Address: [address] [place] [address] Performed By: #### 5 1775-5, 98689-1, 59505-9, 78980-5, 53413-6, 09080-2, 51028-2, 76599-2 #### [facility] CLIA [id number] [address] [place] [address] [place] T. CANDIDUS AB, PRECIPITIN Not detected Normal None Detected [facility] Comment on above: Order Comment: Speci jean Type: BLOOD SPECIMEN Ordering Facility: [facility] Address: [address] [place] [address] Result Comment: Test ing includes antibodies directed at Aureobasidium pullulans, Aspergillus flavus, Aspergillus fumigatus #1, Aspergillus fumigatus #2, Aspergillus fumigatus #3, Aspergillus fumigatus #6, Micropolyspora faeni, [place] Serum, Saccharomonospora viridis, and Thermoactinomyces candidus. Performed By: #### 5 1775-5, 75558-9, 84100-1, 17159-5, 20549-8, 93032-9, 67855-9, 84374-7 #### [facility] CLIA [id number] [address] [place] [address] [place] Layla-1 extractable nuclear Ab Qn (S)on 09-05-2024 LAYLA 1 ANTIBODY QUAL Negative Normal Negative [facility] Comment on above: Order Comment: Lacy pena Type: BLOOD SPECIMEN Ordering Facility: [facility] Address: [address] [place] [address] Result Comment: Anti -LAYLA-1 antibody is used as an aid in diagnosis of polymyositis and dermatomyositis especially with pulmonary involvement. A negative result cannot rule out polymyositis or dermatomyositis. Clinical correlation is required. Test Methodology: Multiplex flow immunoassay. Performed By: #### 5 1775-5, 20227-2, 19576-9, 78717-4, 57222-4, 83605-5, 35127-3, 80128-6 #### [facility] CLIA [id number] [address] [place] [address] [place] POLYMYOSITIS AND DERMATOMYOS ITIS PANELon 09-05-2024 LEWIS INTERP COMMENT See Note Normal [facility] Comment on above: Order Comment: Speci men Type: BLOOD SPECIMEN Ordering Facility: [facility] Address: [address] [place] [address] Result Comment: Anti nuclear antibodies by IFA [...] out SARD. Performed By: #### 5 1775-5, 68594-8, 54968-2, 84201-3, 22082-2, 74751-6, 81885-9, 94272-7 #### [facility] CLIA [id number] [address] [place] [address] [place] ANTINUCLEAR ANTIBODY (LEWIS) HEP-2, IGG <1:80 Normal <1:[address] [facility] Comment on above: Order Comment: Lacy pena Type: BLOOD SPECIMEN Ordering Facility: [facility] Address: [address] [place] [address] Performed By: #### 5 1775-5, 50489-7, 48392-2, 16209-9, 79388-4, 38726-6, 44297-9, 67454-2 #### [facility] CLIA [id number] [address] [place] [address] [place] EJ (GLYCYL-TRNA SYNTHETASE) ANTIBODY Negative Normal Negative [facility] Comment on above: Order Comment: Lacy pena Type: BLOOD SPECIMEN Ordering Facility: [facility] Address: [address] [place] [address] Performed By: #### 5 1775-5, 95105-0, 81656-3, 05291-7, 96574-3, 86093-3, 60492-2, 51891-4 #### [facility] CLIA [id number] [address] [place] [address] [place] DANIELLE (TYROSYL-TRNA SYNTHETASE) AB Negative Normal Negative [facility] Comment on above: Order Comment: Speci jean Type: BLOOD SPECIMEN [facility]ing Facility: [facility] Address: [address] [place] [address] Result Comment: Danielle a ntibody negative by line immunoassay. No band corresponding to 65 kDa observed by immunoprecipitation. Performed By: #### 5 1775-5, 35222-2, 32319-3, 17549-8, 78178-6, 41370-7, 82921-7, 47925-1 #### [facility] CLIA [id number] [address] [place] [address] [place] LAYLA-1 (HISTIDYL-TRNA SYNTHETASE) AB, IGG 1 AU/mL Normal 0-[address] [facility] Comment on above: Order Comment: Lacy pena Type: BLOOD SPECIMEN Ordering Facility: [facility] Address: [address] [place] [address] Result Comment: INTE RPRETIVE INFORMATION: Layla-1 Antibody, IgG 29 AU/mL or less.........Negative 30-40 AU/mL..............Equivocal 41 AU/mL or greater......Positive Presence of Layla-1 (antihistidyl transfer RNA [t-RNA] synthetase) antibody is associated with polymyositis and may also be seen in patients with dermatomyositis. Layla-1 antibody is associated with pulmonary involvement (interstitial lung disease), Raynaud phenomenon, arthritis, and drafter electromechanical's hands (implicated in antisynthetase syndrome). Performed By: #### 5 1775-5, 58771-1, 19658-9, 43525-1, 42263-1, 07899-0, 12445-6, 10907-1 #### [facility] CLIA [id number] [address] [place], [place] [id number] [place] KS (ASPARAGINYL-TRNA SYNTHETASE) AB Negative Normal Negative [facility] Comment on above: Order Comment: Speci men Type: BLOOD SPECIMEN Ordering Facility: [facility] Address: [address] [place] [address] Result Comment: Ks a ntibody negative by line immunoassay. No band corresponding to 65 kDa observed by immunoprecipitation. Performed By: #### 5 1775-5, 60827-4, 73400-1, 26116-7, 12580-3, 90287-2, 80590-5, 70212-9 #### [facility] CLIA [id number] [address] [place] [address] [place] MDA5 (CADM-140) AB Negative Normal Negative [facility] Comment on above: Order Comment: Speci men Type: BLOOD SPECIMEN Ordering Facility: [facility] Address: [address] [place] [address] Performed By: #### 5 1775-5, 81226-8, 10301-1, 14717-5, 78824-2, 53901-0, 96747-3, 66738-4 #### [facility] CLIA [id number] [address] [place] [address] [place] ND-2 (NUCLEAR HELICASE PROTEIN) ANTIBODY Negative Normal Negative [facility] Comment on above: Order Comment: Speci men Type: BLOOD SPECIMEN [facility]ing Facility: [facility] Address: [address] [place] [address] Performed By: #### 5 1775-5, 53597-0, 15363-7, 76401-1, 57619-1, 56294-7, 43323-9, 73991-0 #### [facility] CLIA [id number] [address] [place] [address] [place] [address] [place] MYOSITIS INTERPRETIVE INFORMATION See Note Normal [facility] Comment on above: Order Comment: Speci men Type: BLOOD SPECIMEN Ordering Facility: [facility] Address: [address] [place] [address] Result Comment: INTE RPRETIVE INFORMATION: Dermatomyositis and [...] developed and its performance characteristics determined by [facility]. It has not been cleared or approved by the [place] Food and Drug Administration. This test was performed in a CLIA certified laboratory and is intended for clinical purposes. Performed By: #### 5 1775-5, 04176-4, 15869-6, 85164-8, 05638-6, 66596-5, 14421-4, 95926-5 #### [facility] CLIA [id number] [address] [place] [address] [place] NXP2 (NUCLEAR MATRIX PROTEIN-2) AB Negative Normal Negative [facility] Comment on above: Order Comment: Speci men Type: BLOOD SPECIMEN [facility]ing Facility: [facility] Address: [address] [place] [address] Performed By: #### 5 1775-5, 85745-8, 11945-6, 48739-4, 24165-0, 00181-9, 44972-3, 61830-5 #### [facility] CLIA [id number] [address] [place] [address] [place] OJ (ISOLEUCYL-TRNA SYNTHETASE) ANTIBODY Negative Normal Negative [facility] Comment on above: Order Comment: Speci men Type: BLOOD SPECIMEN [facility]ing Facility: [facility] Address: [address] [place] [address] Performed By: #### 5 1775-5, 65747-8, 83308-3, 42179-2, 27753-2, 32337-5, 60788-3, 18565-6 #### [facility] CLIA [id number] [address] [place] [address] [place] P155/140 ANTIBODY Negative Normal Negative [facility] Comment on above: Order Comment: Speci men Type: BLOOD SPECIMEN Ordering Facility: [facility] Address: [address] [place] [address] Performed By: #### 5 1775-5, 17615-2, 33203-0, 34472-6, 33830-4, 26270-9, 91258-8, 91355-0 #### [facility] CLIA [id number] [address] [place] [address] [place] PL-12 (ALANYL-TRNA SYNTHETASE) ANTIBODY Negative Normal Negative [facility] Comment on above: Order Comment: Speci men Type: BLOOD SPECIMEN [facility]ing Facility: [facility] Address: [address] [place] [address] Performed By: #### 5 1775-5, 51128-3, 31299-6, 31958-7, 88018-2, 50411-1, 61892-2, 06386-2 #### [facility] CLIA [id number] [address] [place] [address] [place] PL-7 (THREONYL-TRNA SYNTHETASE) ANTIBODY Negative Normal Negative [facility] Comment on above: Order Comment: Speci men Type: BLOOD SPECIMEN Ordering Facility: [facility] Address: [address] [place] [address] Performed By: #### 5 1775-5, 45932-1, 49460-5, 96384-6, 36654-4, 24940-7, 58709-2, 67455-2 #### [facility] CLIA [id number] [address] [place] [address] [place] SAE1 (SUMO ACTIVATING ENZYME) AB Negative Normal Negative [facility] Comment on above: Order Comment: Speci men Type: BLOOD SPECIMEN [facility]ing Facility: [facility] Address: [address] [place] [address] Performed By: #### 5 1775-5, 97697-7, 65824-8, 61915-8, 84816-8, 77411-5, 33783-9, 46277-3 #### [facility] CLIA [id number] [address] [place] [address] [place] SRP (SIGNAL RECOGNITION PARTICLE) AB Negative Normal Negative [facility] Comment on above: Order Comment: Speci men Type: BLOOD SPECIMEN Ordering Facility: [facility] Address: [address] [place] [address] Performed By: #### 5 1775-5, 03730-3, 43198-9, 50926-9, 62794-2, 71338-5, 11715-7, 92719-9 #### [facility] CLIA [id number] [address] [place] [address] [place] TIF-1 GAMMA (155 KDA) AB Negative Normal Negative [facility] Comment on above: Order Comment: Speci men Type: BLOOD SPECIMEN Ordering Facility: [facility] Address: [address] [place] [address] Performed By: #### 5 1775-5, 14781-4, 82048-9, 55862-1, 79961-1, 63432-2, 40608-8, 85111-8 #### [facility] CLIA [id number] [address] [place] [address] [place] ZO (PHENYLALANYL-TRNA SYNTHETASE) AB Negative Normal Negative [facility] Comment on above: Order Comment: Speci men Type: BLOOD SPECIMEN [facility]ing Facility: [facility] Address: [address] [place] [address] Result Comment: Zo a ntibody negative by line immunoassay. No bands corresponding to 68 and 58 kDa observed by immunoprecipitation. Performed By: [facility] [address] [place] [address] Rehab Aide: Norman Castillo MD, PhD CLIA Number: [id number] Performed By: #### 5 1775-5, 73060-7, 68875-9, 37015-1, 82657-8, 98040-9, 22748-5, 21648-1 #### [facility] CLIA [id number] [address] [place] [address] [place] RNA POLYMERASE III ABon 02- RNA POLYMERASE III AB 6 Units Normal 0-19 [facility] Comment on above: Order Comment: Speci men Type: BLOOD SPECIMEN [facility]ing Facility: [facility] Address: [address] [place] [address] Result Comment: INTE RPRETIVE INFORMATION: RNA Polymerase [...] antibodies associated with SSc, including centromere, Scl-70, U3-EARLY EDUCATION TEACHER, PM/Scl, or Th/To. Performed by [facility], [address] [place] [address] [email or web address], Edwin Quintero MD, Lab. Director [facility] Number: [id number] Performed By: #### 5 1775-5, 41073-2, 33405-4, 33879-1, 33193-7, 68083-5, 56306-8, 71307-5 #### [facility] CLIA [id number] [address] [place] [address] [place] Rheumatoid fact SerPl-aCncon 09-05-2024 Rheumatoid factor Qn [IU]/mL Normal <16 [facility] Comment on above: Order Comment: Speci men Type: BLOOD SPECIMEN Ordering Facility: [facility] Address: [facility] [place] [address] Performed By: #### 1 1572-5 #### [facility] CLIA [id number] [address] [place] [address] [place] Ribonucleoprotein extractabl e nuclear Ab Qn (S)on 09-05-2024 ANTI-EARLY EDUCATION TEACHER QUAL Negative Normal Negative [facility] Comment on above: Order Comment: Lacy pena Type: BLOOD SPECIMEN [facility]ing Facility: [facility] Address: [address] [place] [address] Performed By: #### 5 1775-5, 47430-4, 79099-2, 01741-7, 42188-4, 91157-1, 85587-2, 60528-2 #### [facility] CLIA [id number] [address] [place] [address] [place] RIBOSOMAL EARLY EDUCATION TEACHER QUAL Negative Normal Negative [facility] Comment on above: Order Comment: Lacy pena Type: BLOOD SPECIMEN [facility]ing Facility: [facility] Address: [address] [place] [address] Result Comment: Anti -Ribosomal RNA (Ribosomal P) antibody is used as an aid in diagnosis of systemic autoimmune diseases especially systemic lupus erythematosus and mixed connective tissue disease. Cross-reactivity with Anti-rizzo antibody is not uncommon. Clinical correlation is required. Test Methodology: Multiplex flow immunoassay. Performed By: #### 5 1775-5, 70918-2, 50018-4, 17547-3, 61438-0, 85045-5, 21087-2, 05050-6 #### [facility] CLIA [id number] [address] [place] [address] [place] SCL-70 extractable nuclear I gG IA Qn (S)on 09-05-2024 SCLERODERMA AB QUAL Negative Normal Negative [facility] Comment on above: Order Comment: Lacy pena Type: BLOOD SPECIMEN [facility]ing Facility: [facility] Address: [address] [place] [address] Performed By: #### 5 1775-5, 87445-9, 42331-5, 12030-4, 07698-9, 64306-6, 75621-6, 39929-1 #### [facility] CLIA [id number] [address] [place] [address] [place] SCLERODERMA IGG AB <0.2 Normal <1.0 [facility] Comment on above: Order Comment: Speci men Type: BLOOD SPECIMEN [facility]ing Facility: [facility] Address: [address] [place] [address] Result Comment: Scl- 70/Scleroderma antibody test is used as an aid in diagnosis of systemic sclerosis especially the diffuse cutaneous form. A negative result cannot rule out systemic sclerosis. The final interpretation should consider clinical picture and other test results such as anti-centromere antibody. Test Methodology: Multiplex flow immunoassay. Performed By: #### 5 1775-5, 08671-9, 06693-1, 92691-7, 54614-7, 56744-5, 89440-2, 40521-1 #### [facility] CLIA [id number] [address] [place] [address] [place] Sjogrens syndrome-A extracta ble nuclear Ab Qn (S)on 09-05-2024 SSA ANTIBODY QUAL Negative Normal Negative [facility] Comment on above: Order Comment: Speci men Type: BLOOD SPECIMEN [facility]ing Facility: [facility] Address: [address] [place] [address] Performed By: #### 5 1775-5, 12969-0, 08671-5, 66931-1, 33306-4, 73642-3, 28521-9, 16159-6 #### [facility] CLIA [id number] [address] [place] [address] [place] Sjogrens syndrome-B extracta ble nuclear Ab Qn (S)on 09-05-2024 SSB ANTIBODY QUAL Negative Normal Negative [facility] Comment on above: Order Comment: Speci men Type: BLOOD SPECIMEN [facility]ing Facility: [facility] Address: [address] [place] [address] Performed By: #### 5 1775-5, 66901-4, 12940-7, 48452-6, 38658-2, 41322-9, 71399-0, 79153-0 #### [facility] CLIA [id number] [address] [place] [address] [place] Rizzo extractable nuclear Ig G Qn (S)on 09-05-2024 SM ANTIBODY QUAL Negative Normal Negative [facility] Comment on above: Order Comment: Lacy pena Type: BLOOD SPECIMEN [facility]ing Facility: [facility] Address: [address] [place] [address] Result Comment: Anti -Sm (Rizzo) antibody is used as an aid in diagnosis of systemic lupus erythematosus and its presence is associated with renal disease. A negative result cannot rule out systemic lupus erythematosus. Clinical correlation is required. Test Methodology: Multiplex flow immunoassay. Performed By: #### 5 1775-5, 26466-6, 84450-6, 79426-6, 28731-4, 25261-3, 33373-5, 72957-3 #### [facility] CLIA [id number] [address] [place] [address] [place] cCP IgG SerPl-aCncon 025 Cyclic citrullinated peptide IgG Qn <15 Normal <[address] [facility] Comment on above: Order Comment: Lacy pena Type: BLOOD SPECIMEN Ordering Facility: [facility] Address: [address] [place] [address] Performed By: #### 5 1775-5, 33028-9, 27830-5, 20762-9, 89235-4, 41288-5, 48189-4, 59632-0 #### [facility] CLIA [id number] [address] [place] [address] [place] Chest without Contraston Chest without Contrast [facility] Imaging Services [address] [place] [address] Chest without Contrast MR#: [id number] Acct: [id number] Name: RUBI MEJIA Rep #: [id number] : 1950 F 73 From: Alonso Butler MD PCP: Dr. Cris Rizzo MD Status: [facility] CLI Study: Chest without Contrast Date of Exam: 08/15/24 Exam# [id number] Ordering Dr: Cris Rizzo MD EXAM: CT [...] in 12 months is recommended. Reading Location: [facility] CC: Dr. Cris Rizzo MD [employer]: Signed Normal [facility] Chest PA and Lateralon 08-04 Chest PA and Lateral [facility] Imaging Services [address] [place] [address] [id number] Chest PA and Lateral MR#: [id number] Acct: [id number] Name: RUBI MEJIA Rep #: [id number] : 1950 F 73 From: Jaguar Garcia MD PCP: Dr. Cris Rizzo MD Status: [facility] Study: Chest PA and Lateral Date of Exam: 08/04/24 Exam# [id number] Ordering Dr: Cris Rizzo MD [id number] STUDY: X-RAY CHEST REASON FOR EXAM: Female, [...] EST , CC: Dr. Cris Rizzo MD [employer]: Signed Normal [facility] Bone density reportOrdered B y: Jd Vazquez on 06-26-2024 Study report Skeletal system DXA [facility] Imaging Services [address] [place] [address] [id number] Dexa Bone Density Study MR#: [id number] Acct: [id number] Name: RUBI MEJIA Rep #: [id number] : 1950 F 73 From: Dionisio Vazquez MD PCP: Dr. Cris Rizzo MD Status: [facility] Study:Dexa Bone Density Study Date of Exam: 06/21/24 Exam# [id number] Ordering Dr: Mychal Jorgensen [employer]EARCH [employer] DIRECTOR-C [id number] STUDY: DUAL ENERGY X-RAY ABSORPTIOMETRY / DXA [...] Dr. Cris Rizzo MD; Kae Jorgensen ~ [employer]: Signed [facility] Breast imaging reportOrdered By: Jd Vazquez on 06-22-2024 Study report [facility] Imaging Services [address] [place] [address] SCRN MAMM (CAD)W/DAYANARA BILAT MR#: [id number] Acct: [id number] Name: RUBI MEJIA Rep #: [id number] : 1950 F 73 From: Dionisio Vazquez MD PCP: Dr. Cris Rizzo MD Status: [facility] Study:SCRN MAMM (CAD)W/DAYANARA BILAT Date of Exa m: 06/21/24 Exam# [id number] Ordering Dr: Mychal Jorgensen [id number] MAMMOGRAPHY - BILATERAL SCREENING REASON FOR EXAM: [...] delay biopsy of a clinically suspicious abnormality. [id number] Electronically Signed: Jd Vazquez MD at 8:11 EST Reading Location ID and State: [address] [place] [address] , Service support , CC: Dr. Cris Rizzo MD; Kae Jorgensen ~ [employer]: Signed [facility] Dexa Bone Density Studyon Dexa Bone Density Study [facility] Imaging Services [address] [place] [address] [id number] Dexa Bone Density Study MR#: [id number] Acct: [id number] Name: RUBI MEJIA Rep #: [id number] : 1950 F 73 From: Jd colvin MD PCP: Dr. Cris Rizzo MD Status: [facility] Study: Dexa Bone Density Study Date of Exam: 06/21/24 Exam# [id number] Ordering Dr: Kae Jorgensen NP [id number] STUDY: DUAL ENERGY X-RAY ABSORPTIOMETRY / DXA [...] CC: Dr. Cris Rizzo MD; Kae Jorgensen [employer]: Signed Normal [facility] SCRN MAMM (CAD)W/DAYANARA BILATo n 06-21-2024 SCRN MAMM (CAD)W/DAYANARA BILAT [facility] Imaging Services [address] [place] [address] SCRN MAMM (CAD)W/DAYANARA BILAT MR#: [id number] Acct: [id number] Name: RUBI MEJIA Rep #: [id number] : 1950 F 73 From: Jd colvin MD PCP: Dr. Cris Rizzo MD Status: [facility] Study: SCRN MAMM (CAD)W/DAYANARA BILAT Date of Exam: 06/11 08/04 Exam# [id number] Ordering Dr: Kae Jorgensen NP [id number] MAMMOGRAPHY - BILATERAL SCREENING REASON FOR EXAM: [...] delay biopsy of a clinically suspicious abnormality. [id number] Electronically Signed: Jd Vazquez MD at 8:11 EST Reading Location ID and State: [address] [place] [address] , Service support , CC: Dr. Cris Rizzo MD; Kae Jorgensen [employer]: Signed Normal [facility] Lyme Screen W/Reflex WBon LYME SCREEN Ab Negative Normal Negative [facility] Comment on above: Result Comment: Lyme antibodies not detected. Reflex testing is not indicated. No laboratory evidence of infection with B. burgdorferi (Lyme disease). Negative results may occur in patients recently infected (less than or equal to 14 days) with B. burgdorferi. If recent infection is suspected, repeat testing on a new sample collected in 7 to 14 days is recommended. Performed at: [address] [id number] Chief Underwriter: Fer Eugene PhD, Phone: [phone] Performed By: #### L 501.9520, L501.5200, L500.4050, L100.0100 #### [facility] [address] [place], [address] Protein Electroph, Son 05-01 Albumin [Mass/Vol] 3.6 g/dL Normal 2.9-4.4 [facility] Comment on above: Performed By: #### L 501.9520, L501.5200, L500.4050, L100.0100 #### [facility] [address] [place], [address] Albumin/Globulin [Mass ratio] 1.2 {ratio} Normal 0.7-1.7 [facility] Comment on above: Performed By: #### L 501.9520, L501.5200, L500.4050, L100.0100 #### [facility] [address] [place], [address] ALPHA-1 GLOBUL 0.3 g/dL Normal 0.0-0.4 [facility] Comment on above: Performed By: #### L 501.9520, L501.5200, L500.4050, L100.0100 #### [facility] [address] [place], [address] ALPHA-2 GLOBUL 0.7 g/dL Normal 0.4-1.0 [facility] Comment on above: Performed By: #### L 501.9520, L501.5200, L500.4050, L100.0100 #### [facility] [address] [place], [address] BETA GLOBULIN 1.1 g/dL Normal 0.7-1.3 [facility] Comment on above: Performed By: #### L 501.9520, L501.5200, L500.4050, L100.0100 #### [facility] [address] [place], [address] GAMMA GLOBULIN 0.9 g/dL Normal 0.4-1.8 [facility] Comment on above: Performed By: #### L 501.9520, L501.5200, L500.4050, L100.0100 #### [facility] [address] [place], [address] Globulin (S) [Mass/Vol] 3.0 g/dL Normal 2.2-3.9 [facility] Comment on above: Performed By: #### L 501.9520, L501.5200, L500.4050, L100.0100 #### [facility] [address] [place], [address] INTERPRETATION Comment Normal . [facility] Comment on above: Result Comment: Prot ein electrophoresis scan will follow via computer, mail, or green marketer delivery. Performed By: #### L 501.9520, L501.5200, L500.4050, L100.0100 #### [facility] [address] [place], [address] M-SPIKE Not Observed Normal Not Observed [facility] Comment on above: Performed By: #### L 501.9520, L501.5200, L500.4050, L100.0100 #### [facility] [address] [place], [address] NOTE: Comment Normal . [facility] Comment on above: Result Comment: The SPE pattern appears unremarkable. Evidence of monoclonal protein is not apparent. Performed By: #### L 501.9520, L501.5200, L500.4050, L100.0100 #### [facility] [address] [place], [address] Protein [Mass/Vol] 6.6 g/dL Normal 6.0-8.5 [facility] Comment on above: Performed By: #### L 501.9520, L501.5200, L500.4050, L100.0100 #### [facility] [address] [place], [address] CBC-Complete Blood Cnt No Di ffon 04-28-2024 Erythrocyte distribution width (RBC) [Ratio] 11.7 % Normal 11.6-14.6 [facility] Comment on above: Performed By: #### L 501.9520, L501.5200, L500.4050, L100.0100 #### [facility] [address] [place], [address] Hematocrit (Bld) [Volume fraction] 38.1 % Normal 37-47 [facility] Comment on above: Performed By: #### L 501.9520, L501.5200, L500.4050, L100.0100 #### [facility] [address] [place], [address] Hemoglobin (Bld) [Mass/Vol] 13.0 g/dL Normal 12.0-15.0 [facility] Comment on above: Performed By: #### L 501.9520, L501.5200, L500.4050, L100.0100 #### [facility] [address] [place], [address] MCH (RBC) [Entitic mass] 32.7 pg High 27.0-32.0 [facility] Comment on above: Performed By: #### L 501.9520, L501.5200, L500.4050, L100.0100 #### [facility] [address] [place], [address] MCHC (RBC) [Mass/Vol] 34.1 g/dL Normal 32-36 [facility] Comment on above: Performed By: #### L 501.9520, L501.5200, L500.4050, L100.0100 #### [facility] [address] [place], [address] MCV (RBC) [Entitic vol] 96.0 fL Normal 81-99 [facility] Comment on above: Performed By: #### L 501.9520, L501.5200, L500.4050, L100.0100 #### [facility] [address] [place], [address] Platelet mean volume (Bld) [Entitic vol] 9.5 fL Normal 6.2-12.0 [facility] Comment on above: Performed By: #### L 501.9520, L501.5200, L500.4050, L100.0100 #### [facility] [address] [place], [address] Platelets (Bld) [#/Vol] 255 10*3/uL Normal 150-450 [facility] Comment on above: Performed By: #### L 501.9520, L501.5200, L500.4050, L100.0100 #### [facility] [address] [place], [address] RBC (Bld) [#/Vol] 3.97 10*6/uL Low 4.2-5.4 [facility] Comment on above: Performed By: #### L 501.9520, L501.5200, L500.4050, L100.0100 #### [facility] [address] [place], [address] RDW SD 41.4 fl Normal 35.1-43.9 [facility] Comment on above: Performed By: #### L 501.9520, L501.5200, L500.4050, L100.0100 #### [facility] [address] [place], [address] WBC (Bld) [#/Vol] 7.1 10*3/uL Normal 4.4-11.0 [facility] Comment on above: Performed By: #### L 501.9520, L501.5200, L500.4050, L100.0100 #### [facility] [address] [place], [address] Comprehensive Metabolic Prof ilon 04-28-2024 Albumin [Mass/Vol] 3.4 g/dL Normal 3.2-5.0 [facility] Comment on above: Performed By: #### L 501.9520, L501.5200, L500.4050, L100.0100 #### [facility] [address] [place], [address] Albumin/Globulin [Mass ratio] 0.9 {ratio} Normal 0.9-2.4 [facility] Comment on above: Performed By: #### L 501.9520, L501.5200, L500.4050, L100.0100 #### [facility] [address] [place], [address] ALK P 87 U/L Normal 45-117 [facility] Comment on above: Performed By: #### L 501.9520, L501.5200, L500.4050, L100.0100 #### [facility] [address] [place], [address] ALT [Catalytic activity/Vol] 27 U/L Normal 13-56 [facility] Comment on above: Performed By: #### L 501.9520, L501.5200, L500.4050, L100.0100 #### [facility] [address] [place], [address] AST [Catalytic activity/Vol] 30 U/L Normal 15-37 [facility] Comment on above: Performed By: #### L 501.9520, L501.5200, L500.4050, L100.0100 #### [facility] [address] [place], [address] Bilirubin [Mass/Vol] 0.40 mg/dL Normal 0.20-1.00 [facility] Comment on above: Result Comment: For patients on eltrombopag therapy, use of Dimension Carson TBIL is not recommended. Performed By: #### L 501.9520, L501.5200, L500.4050, L100.0100 #### [facility] [address] [place], [address] BUN/CRE 28.6 RATIO High 10-20 [facility] Comment on above: Performed By: #### L 501.9520, L501.5200, L500.4050, L100.0100 #### [facility] [address] [place], [address] CA,Total 9.3 mg/dL Normal 8.5-10.1 [facility] Comment on above: Performed By: #### L 501.9520, L501.5200, L500.4050, L100.0100 #### [facility] [address] [place], [address] Chloride [Moles/Vol] 106 mmol/L Normal 98-107 [facility] Comment on above: Performed By: #### L 501.9520, L501.5200, L500.4050, L100.0100 #### [facility] [address] [place], [address] CO2 [Moles/Vol] 29.0 mmol/L Normal 21.0-32.0 [facility] Comment on above: Performed By: #### L 501.9520, L501.5200, L500.4050, L100.0100 #### [facility] [address] [place], [address] Creatinine [Mass/Vol] 0.77 mg/dL Normal 0.55-1.02 [facility] Comment on above: Result Comment: The validity of the calculated GFR GFRAA in patients over 70 years has not been determined. Clinical correlation is essential. Performed By: #### L 501.9520, L501.5200, L500.4050, L100.0100 #### [facility] [address] [place], [address] EST GFR - AA 95 mL/min Normal >60 [facility] Comment on above: Result Comment: Afri can Macanese GFR Calc Performed By: #### L 501.9520, L501.5200, L500.4050, L100.0100 #### [facility] [address] [place], [address] GAP 3 Low 5-15 [facility] Comment on above: Performed By: #### L 501.9520, L501.5200, L500.4050, L100.0100 #### [facility] [address] [place], [address] GFR/1.73 sq M.predicted among non-blacks MDRD (S/P/Bld) [Vol rate/Area] 79 mL/min/{1.73_m2} Normal >60 [facility] Comment on above: Result Comment: Non- GFR Calc Performed By: #### L 501.9520, L501.5200, L500.4050, L100.0100 #### [facility] [address] [place], [address] Globulin (S) [Mass/Vol] 3.6 g/dL Normal 2.2-4.2 [facility] Comment on above: Performed By: #### L 501.9520, L501.5200, L500.4050, L100.0100 #### [facility] [address] [place], [address] Glucose [Mass/Vol] 91 mg/dL Normal 74-106 [facility] Comment on above: Performed By: #### L 501.9520, L501.5200, L500.4050, L100.0100 #### [facility] [address] [place], [address] Potassium [Moles/Vol] 3.9 mmol/L Normal 3.5-5.1 [facility] Comment on above: Performed By: #### L 501.9520, L501.5200, L500.4050, L100.0100 #### [facility] [address] [place], [address] Sodium [Moles/Vol] 138 mmol/L Normal 136-145 [facility] Comment on above: Performed By: #### L 501.9520, L501.5200, L500.4050, L100.0100 #### [facility] [address] [place], [address] T PROT 7.0 g/dL Normal 6.4-8.2 [facility] Comment on above: Performed By: #### L 501.9520, L501.5200, L500.4050, L100.0100 #### [facility] [address] [place], [address] Urea nitrogen [Mass/Vol] 22 mg/dL High 01-26 [facility] Comment on above: Performed By: #### L 501.9520, L501.5200, L500.4050, L100.0100 #### [facility] [address] [place], [address] Erythrocyte Sed Rateon 04-28 SED RATE 8 mm/hr Normal 0-30 [facility] Comment on above: Performed By: #### L 501.9520, L501.5200, L500.4050, L100.0100 #### [facility] [address] [place], [address] Magnesiumon 04-28-2024 Magnesium [Mass/Vol] 2.1 mg/dL Normal 1.6-2.6 [facility] Comment on above: Performed By: #### L 501.9520, L501.5200, L500.4050, L100.0100 #### [facility] [address] [place], [address] Thyroid Stim Hormone (TSH)on 04-28-2024 TSH 1.800 uIU/mL Normal 0.358-3.740 [facility] Comment on above: Performed By: #### L 501.9520, L501.5200, L500.4050, L100.0100 #### [facility] [address] [place], [address] CBC W/Diff, Automatedon 01-09 Absolute Lymph 2.26 X10 3/uL Normal 0.83-4.51 [facility] Comment on above: Order Comment: Order Date: 01/27/24 Order Info: 0184-1 - CBCD Performed By: #### L 501.9520, L501.5200, L500.4050, L100.0100 #### [facility] [address] [place], [address] Absolute Neut 4.5 X10 3/uL Normal 2.0-7.7 [facility] Comment on above: Order Comment: Order Date: 01/27/24 Order Info: 0184-1 - CBCD Performed By: #### L 501.9520, L501.5200, L500.4050, L100.0100 #### [facility] [address] [place], [address] Basophils/100 WBC (Bld) 0.9 % Normal 0-1 [facility] Comment on above: Order Comment: Order Date: 01/27/24 Order Info: 0184-1 - CBCD Performed By: #### L 501.9520, L501.5200, L500.4050, L100.0100 #### [facility] [address] [place], [address] Eosinophils/100 WBC (Bld) 2.4 % Normal 0-5 [facility] Comment on above: Order Comment: Order Date: 01/27/24 Order Info: 0184-1 - CBCD Performed By: #### L 501.9520, L501.5200, L500.4050, L100.0100 #### [facility] [address] [place], [address] Erythrocyte distribution width (RBC) [Ratio] 11.7 % Normal 11.6-14.6 [facility] Comment on above: Order Comment: Order Date: 01/27/24 Order Info: 0184- - CBCD Performed By: #### L 501.9520, L501.5200, L500.4050, L100.0100 #### [facility] [address] [place], [address] Hematocrit (Bld) [Volume fraction] 41.5 % Normal 37-47 [facility] Comment on above: Order Comment: Order Date: 01/27/24 Order Info: 0184- - CBCD Performed By: #### L 501.9520, L501.5200, L500.4050, L100.0100 #### [facility] [address] [place], [address] Hemoglobin (Bld) [Mass/Vol] 13.9 g/dL Normal 12.0-15.0 [facility] Comment on above: Order Comment: Order Date: 01/27/24 Order Info: 0184- - CBCD Performed By: #### L 501.9520, L501.5200, L500.4050, L100.0100 #### [facility] [address] [place], [address] IG% 0.300 Normal 0.0-0.9 [facility] Comment on above: Order Comment: Order Date: 01/27/24 Order Info: 0184-1 - CBCD Result Comment: IG% - Immature Granulocytes (promyelocytes, myelocytes and metamyelocytes) > 1% indicates that a LEFT SHIFT is Present. Performed By: #### L 501.9520, L501.5200, L500.4050, L100.0100 #### [facility] [address] [place], [address] Lymphocytes/100 WBC (Bld) 29.6 % Normal 19-41 [facility] Comment on above: Order Comment: Order Date: 01/27/24 Order Info: 0184-1 - CBCD Performed By: #### L 501.9520, L501.5200, L500.4050, L100.0100 #### [facility] [address] [place], [address] MCH (RBC) [Entitic mass] 32.0 pg Normal 27.0-32.0 [facility] Comment on above: Order Comment: Order Date: 01/27/24 Order Info: 018- - CBCD Performed By: #### L 501.9520, L501.5200, L500.4050, L100.0100 #### [facility] [address] [place], [address] MCHC (RBC) [Mass/Vol] 33.5 g/dL Normal 32-36 [facility] Comment on above: Order Comment: Order Date: 01/27/24 Order Info: 018- - CBCD Performed By: #### L 501.9520, L501.5200, L500.4050, L100.0100 #### [facility] [address] [place], [address] MCV (RBC) [Entitic vol] 95.4 fL Normal 81-99 [facility] Comment on above: Order Comment: Order Date: 01/27/24 Order Info: 0184-1 - CBCD Performed By: #### L 501.9520, L501.5200, L500.4050, L100.0100 #### [facility] [address] [place], [address] Monocytes/100 WBC (Bld) 7.9 % Normal 0-10 [facility] Comment on above: Order Comment: Order Date: 01/27/24 Order Info: 0184-1 - CBCD Performed By: #### L 501.9520, L501.5200, L500.4050, L100.0100 #### [facility] [address] [place], [address] Neutrophils/100 WBC (Bld) 58.9 % Normal 47-70 [facility] Comment on above: Order Comment: Order Date: 01/27/24 Order Info: 0184-1 - CBCD Performed By: #### L 501.9520, L501.5200, L500.4050, L100.0100 #### [facility] [address] [place], [address] Nucleated RBC (Bld) [#/Vol] 0 10*3/uL Normal 0-5 [facility] Comment on above: Order Comment: Order Date: 01/27/24 Order Info: 0184-1 - CBCD Performed By: #### L 501.9520, L501.5200, L500.4050, L100.0100 #### [facility] [address] [place], [address] Platelet mean volume (Bld) [Entitic vol] 10.1 fL Normal 6.2-12.0 [facility] Comment on above: Order Comment: Order Date: 01/27/24 Order Info: 0184-1 - CBCD Performed By: #### L 501.9520, L501.5200, L500.4050, L100.0100 #### [facility] [address] [place], [address] Platelets (Bld) [#/Vol] 282 10*3/uL Normal 150-450 [facility] Comment on above: Order Comment: Order Date: 01/27/24 Order Info: 0184-1 - CBCD Performed By: #### L 501.9520, L501.5200, L500.4050, L100.0100 #### [facility] [address] [place], [place], [address] RBC (Bld) [#/Vol] 4.35 10*6/uL Normal 4.2-5.4 [facility] Comment on above: Order Comment: Order Date: 01/27/24 Order Info: 0184- - CBCD Performed By: #### L 501.9520, L501.5200, L500.4050, L100.0100 #### [facility] [address] [place], [address] RDW SD 41.3 fl Normal 35.1-43.9 [facility] Comment on above: Order Comment: Order Date: 01/27/24 Order Info: 0184- - CBCD Performed By: #### L 501.9520, L501.5200, L500.4050, L100.0100 #### [facility] [address] [place], [address] WBC (Bld) [#/Vol] 7.6 10*3/uL Normal 4.4-11.0 [facility] Comment on above: Order Comment: Order Date: 01/27/24 Order Info: 0184- - CBCD Performed By: #### L 501.9520, L501.5200, L500.4050, L100.0100 #### [facility] [address] [place], [address] Comprehensive Metabolic Prof scon 01-27-2024 Albumin [Mass/Vol] 3.8 g/dL Normal 3.2-5.0 [facility] Comment on above: Order Comment: Order Date: 01/27/24 Order Info: 0786-1 - CMP Order Info: 41221-1 - MG Order Info: 3016-3 - TSH Performed By: #### L 501.9520, L501.5200, L500.4050, L100.0100 #### [facility] [address] [place], [address] Albumin/Globulin [Mass ratio] 1.1 {ratio} Normal 0.9-2.4 [facility] Comment on above: Order Comment: Order Date: 01/27/24 Order Info: 0786-1 - CMP Order Info: 04985-7 - MG Order Info: 3016-3 - TSH Performed By: #### L 501.9520, L501.5200, L500.4050, L100.0100 #### [facility] [address] [place], [address] ALK P 85 U/L Normal 45-117 [facility] Comment on above: Order Comment: Order Date: 01/27/24 Order Info: 0786-1 - CMP Order Info: 59716-7 - MG Order Info: 301-3 - TSH Performed By: #### L 501.9520, L501.5200, L500.4050, L100.0100 #### [facility] [address] [place], [address] ALT [Catalytic activity/Vol] 23 U/L Normal 13-56 [facility] Comment on above: Order Comment: Order Date: 01/27/24 Order Info: 0786-1 - CMP Order Info: 43361-4 - MG Order Info: 3016-3 - TSH Performed By: #### L 501.9520, L501.5200, L500.4050, L100.0100 #### [facility] [address] [place], [address] AST [Catalytic activity/Vol] 28 U/L Normal 15-37 [facility] Comment on above: Order Comment: Order Date: 01/27/24 Order Info: 0786-1 - CMP Order Info: 69045-5 - MG Order Info: 3016-3 - TSH Performed By: #### L 501.9520, L501.5200, L500.4050, L100.0100 #### [facility] [address] [place], [place], [id number] Bilirubin [Mass/Vol] 0.50 mg/dL Normal 0.20-1.00 [facility] Comment on above: Order Comment: Order Date: 01/27/24 Order Info: 0786-1 - CMP Order Info: 36037-5 - MG Order Info: 3016-3 - TSH Result Comment: For patients on eltrombopag therapy, use of Dimension [place] TBIL is not recommended. Performed By: #### L 501.9520, L501.5200, L500.4050, L100.0100 #### [facility] [address] [place], [place], [address] BUN/CRE 26.8 RATIO High 10-20 [facility] Comment on above: Order Comment: Order Date: 01/27/24 Order Info: 07-1 - CMP Order Info: 76648-9 - MG Order Info: 3015-3 - TSH Performed By: #### L 501.9520, L501.5200, L500.4050, L100.0100 #### [facility] [address] [place], [place], [id number] CA,Total 9.3 mg/dL Normal 8.5-10.1 [facility] Comment on above: Order Comment: Order Date: 01/27/24 Order Info: 0786-1 - CMP Order Info: 42278-3 - MG Order Info: 301-3 - TSH Performed By: #### L 501.9520, L501.5200, L500.4050, L100.0100 #### [facility] [address] [place], [place], [id number] Chloride [Moles/Vol] 105 mmol/L Normal 98-107 [facility] Comment on above: Order Comment: Order Date: 01/27/24 Order Info: 0786-1 - CMP Order Info: 98717-4 - MG Order Info: 3016-3 - TSH Performed By: #### L 501.9520, L501.5200, L500.4050, L100.0100 #### [facility] [address] [place], [address] CO2 [Moles/Vol] 28.0 mmol/L Normal 21.0-32.0 [facility] Comment on above: Order Comment: Order Date: 01/27/24 Order Info: [id number] - CMP Order Info: [id number] - MG Order Info: 3015-3 - TSH Performed By: #### L 501.9520, L501.5200, L500.4050, L100.0100 #### [facility] [address] [place], [address] Creatinine [Mass/Vol] 0.71 mg/dL Normal 0.55-1.02 [facility] Comment on above: Order Comment: Order Date: 01/27/24 Order Info: [id number] - CMP Order Info: [id number] - MG Order Info: 3015-3 - TSH Result Comment: The validity of the calculated GFR GFRAA in patients over 70 years has not been determined. Clinical correlation is essential. Performed By: #### L 501.9520, L501.5200, L500.4050, L100.0100 #### [facility] [address] [place], [address] EST GFR - AA 104 mL/min Normal >60 [facility] Comment on above: Order Comment: Order Date: 01/27/24 Order Info: [id number] - CMP Order Info: [id number] - MG Order Info: [id number] - TSH Result Comment: Afri can Macanese GFR Calc Performed By: #### L 501.9520, L501.5200, L500.4050, L100.0100 #### [facility] [address] [place], [address] GAP 7 Normal 5-15 [facility] Comment on above: Order Comment: Order Date: 01/27/24 Order Info: [id number] - CMP Order Info: [id number] - MG Order Info: 3 - TSH Performed By: #### L [id number], L501.5200, L500.4050, L100.0100 #### [facility] [address] [place], [address] GFR/1.73 sq M.predicted among non-blacks MDRD (S/P/Bld) [Vol rate/Area] 86 mL/min/{1.73_m2} Normal >60 [facility] Comment on above: Order Comment: Order Date: 01/27/24 Order Info: [id number] - CMP Order Info: [id number] - MG Order Info: [id number] - TSH Result Comment: Non- GFR Calc Performed By: #### L 501.9520, L501.5200, L500.4050, L100.0100 #### [facility] [address] [place], [address] Globulin (S) [Mass/Vol] 3.6 g/dL Normal 2.2-4.2 [facility] Comment on above: Order Comment: Order Date: 01/27/24 Order Info: [id number] - CMP Order Info: [id number] - MG Order Info: 3016-3 - TSH Performed By: #### L 501.9520, L501.5200, L500.4050, L100.0100 #### [facility] [address] [place], [address] Glucose [Mass/Vol] 91 mg/dL Normal 74-106 [facility] Comment on above: Order Comment: Order Date: 01/27/24 Order Info: [id number] - CMP Order Info: [id number] - MG Order Info: 3016-3 - TSH Performed By: #### L 501.9520, L501.5200, L500.4050, L100.0100 #### [facility] [address] [place], [address] Potassium [Moles/Vol] 4.1 mmol/L Normal 3.5-5.1 [facility] Comment on above: Order Comment: Order Date: 01/27/24 Order Info: [id number] - CMP Order Info: [id number] - MG Order Info: 3015-3 - TSH Performed By: #### L 501.9520, L501.5200, L500.4050, L100.0100 #### [facility] [address] [place], [address] Sodium [Moles/Vol] 140 mmol/L Normal 136-145 [facility] Comment on above: Order Comment: Order Date: 01/27/24 Order Info: [id number] - CMP Order Info: [id number] - MG Order Info: 3 - TSH Performed By: #### L 501.9520, L501.5200, L500.4050, L100.0100 #### [facility] [address] [place], [address] T PROT 7.4 g/dL Normal 6.4-8.2 [facility] Comment on above: Order Comment: Order Date: 01/27/24 Order Info: [id number] - CMP Order Info: [id number] - MG Order Info: 3 - TSH Performed By: #### L 501.9520, L501.5200, L500.4050, L100.0100 #### [facility] [address] [place], [address] Urea nitrogen [Mass/Vol] 19 mg/dL High - [facility] Comment on above: Order Comment: Order Date: 01/27/24 Order Info: [id number] - CMP Order Info: [id number] - MG Order Info: [id number] - TSH Performed By: #### L 501.9520, L501.5200, L500.4050, L100.0100 #### [facility] [address] [place], [address] Magnesiumon 01-27-2024 Magnesium [Mass/Vol] 2.1 mg/dL Normal 1.6-2.6 [facility] Comment on above: Order Comment: Order Date: 01/27/24 Order Info: [id number] - CMP Order Info: [id number] - MG Order Info: [id number] - TSH Performed By: #### L 501.9520, L501.5200, L500.4050, L100.0100 #### [facility] [address] [place] [place], [id number] Thyroid Stim Hormone (TSH)on 01-27-2024 TSH 2.06 uIU/mL Normal 0.358-3.74 [facility] Comment on above: Order Comment: Order Date: 01/27/24 Order Info: [id number] - CMP Order Info: [id number] - MG Order Info: [id number] - TSH Performed By: #### L [id number], L501.5200, L500.4050, L100.0100 #### [facility] [address], [place], [id number] Absolute lymphocyte countOrd ered By: Dr. Rizzo on 08-27-2022 Lymphocytes Auto (Unsp spec) [#/Vol] 1.74 10*3/uL 0.83-4.51 [facility] Basophil percentageOrdered B y: Dr. Rizzo on 08-27-2022 Basophils/100 WBC (Bld) 0.8 % 0-1 [facility] Bilirubin [Mass/Vol] 0.60 mg/dL 0.20-1.00 [facility] Comment on above: For patients on eltr ombopag therapy, use of Dimension [place] TBIL is not recommended. Chloride [Moles/Vol] 106 mmol/L 98-107 [facility] Cholesterol [Mass/Vol] 204 mg/dL <200 [facility] Comment on above: <200 mg/dL Desirable 200-240 mg/dL Borderline >240 mg/dL High Risk Eosinophils/100 WBC (Bld) 1.9 % 0-5 [facility] Glucose [Mass/Vol] 85 mg/dL 74-106 [facility] Neutrophils (Bld) [#/Vol] 3.9 10*3/uL 2.0-7.7 [facility] Neutrophils/100 WBC (Bld) 61.2 % 47-70 [facility] Potassium [Moles/Vol] 3.6 mmol/L 3.5-5.1 [facility] Protein [Mass/Vol] 6.7 g/dL 6.4-8.2 [facility] Sodium [Moles/Vol] 142 mmol/L 136-145 [facility] Triglyceride [Mass/Vol] 48 mg/dL <199 [facility] Comment on above: The drugs N-Acetylcy steine and Metamizole may falsely depress this assay.Serum Triglycerides Reference Interval Normal <150 mg/dL Borderline high 150 - 199 mg/dL High 200 - 499 mg/dL Very High > or = 500 mg/dL WBC (Bld) [#/Vol] 6.3 10*3/uL 4.4-11.0 [facility] Blood erythrocytes count (nu mber/volume)Ordered By: Dr. Rizzo on 08-27-2022 RBC (Bld) [#/Vol] 4.15 10*6/uL 4.2-5.4 [facility] Blood hemoglobin measurement (mass/volume)Ordered By: Dr. Rizzo on 08-27-2022 Hemoglobin (Bld) [Mass/Vol] 13.3 g/dL 12.0-15.0 [facility] Blood lymphocytes/100 leukoc ytesOrdered By: Dr. Rizzo on 08-27-2022 Lymphocytes/100 WBC (Bld) 27.7 % 19-41 [facility] Blood monocytes/100 leukocyt esOrdered By: Dr. Rizzo on 08-27-2022 Monocytes/100 WBC (Bld) 8.1 % 0-10 [facility] Blood platelet mean volumeOr dered By: Dr. Rizzo on 08-27-2022 Platelet mean volume (Bld) [Entitic vol] 10.0 fL 6.2-12.0 [facility] Determination of erythrocyte mean corpuscular volume (MCV)Ordered By: Dr. Rizzo on 08-27-2022 MCV (RBC) [Entitic vol] 99.5 fL 81-99 [facility] Hematocrit Auto (Bld) [Volum e fraction]Ordered By: Dr. Rizzo on 08-27-2022 Hematocrit (Bld) [Volume fraction] 41.3 % 37-47 [facility] - Chemistry and C hemistry - challengeOrdered By: Dr. Rizzo on 08-27-2022 ALP [Catalytic activity/Vol] 85 U/L 45-117 [facility] ALT [Catalytic activity/Vol] 20 U/L 13-56 [facility] CO2 [Moles/Vol] 29.0 mmol/L 21.0-32.0 [facility] Globulin (S) [Mass/Vol] 3.4 g/dL 2.2-4.2 [facility] Urea nitrogen/Creatinine [Mass ratio] 27.7 mg/mg 10-20 [facility] - Hematology and Cell countsOrdered By: Dr. Rizzo on 08-27-2022 Erythrocyte distribution width (RBC) [Entitic vol] 44.5 fL 35.1-43.9 [facility] Erythrocyte distribution width (RBC) [Ratio] 11.9 % 11.6-14.6 [facility] Immature granulocytes/100 WBC (Bld) 0.300 % 0.0-0.9 [facility] Comment on above: IG% - Immature Granu locytes (promyelocytes, myelocytes and metamyelocytes) > 1% indicates that a LEFT SHIFT is Present. MCH (RBC) [Entitic mass] 32.0 pg 27.0-32.0 [facility] Nucleated RBC/100 WBC (Bld) [Ratio] 0 % 0-5 [facility] MCHC Auto (RBC) [Mass/Vol]Or dered By: Dr. Rizzo on 08-27-2022 MCHC (RBC) [Mass/Vol] 32.2 g/dL 32-36 [facility] No Panel InformationOrdered By: Dr. Rizzo on 08-27-2022 Estimated GFR (MDRD) Amer 116 mL/min >60 [facility] Comment on above: GFR Calc Estimated GFR (MDRD) Non-Af Amer 96 mL/min >60 [facility] Comment on above: Non- GFR Calc Thyroid Stimulating Hormone (TSH) 1.74 uIU/mL 0.358-3.74 [facility] Vitamin D 25-Hydroxy 14.4 ng/mL [facility] Comment on above: Vitamin D 25(OH) Sta tus Range Deficiency <20 ng/mL (50nmol/L) Insufficiency 20 - 30 ng/mL (50 - 75 nmol/L) Sufficiency 30 - 100 ng/mL (75 - 250 nmol/L) Toxicity >100 ng/mL (>250 nmol/L) Platelets bldOrdered By: Dr. Rizzo on 08-27-2022 Platelets (Bld) [#/Vol] 246 10*3/uL 150-450 [facility] Serum or plasma albumin rommel urement (mass/volume)Ordered By: Dr. Rizzo on 08-27-2022 Albumin [Mass/Vol] 3.3 g/dL 3.2-5.0 [facility] Serum or plasma albumin/glob ulin mass ratioOrdered By: Dr. Rizzo on 08-27-2022 Albumin/Globulin [Mass ratio] 1.0 {ratio} 0.9-2.4 [facility] Serum or plasma calcium rommel urement (mass/volume)Ordered By: Dr. Rizzo on 08-27-2022 Calcium [Mass/Vol] 8.9 mg/dL 8.5-10.1 [facility] Serum or plasma cholesterol in HDL measurement (mass/volume)Ordered By: Dr. Rizzo on 08-27-2022 Cholesterol in HDL [Mass/Vol] 101 mg/dL >40 [facility] Comment on above: The drugs N-Acetylcy steine and Metamizole may falsely depress this assay. Reference Range HDL <40 mg/dL Low HDL Cholesterol HDL >or= 60 mg/dL High HDL Cholesterol Serum or plasma cholesterol in VLDL measurement (mass/volume)Ordered By: Dr. Rizzo on 08-27-2022 Cholesterol in VLDL [Mass/Vol] 10 mg/dL 5-40 [facility] Serum or plasma creatinine m easurement (mass/volume)Ordered By: Dr. Rizzo on 08-27-2022 Creatinine [Mass/Vol] 0.65 mg/dL 0.55-1.02 [facility] Comment on above: The validity of the calculated GFR & GFRAA in patients over 70 years has not been determined. Clinical correlation is essential. Serum or plasma low density lipoprotein (LDL) cholesterol measurement (mass/volume)Ordered By: Dr. Rizzo on 08-27-2022 Cholesterol in LDL [Mass/Vol] 93 mg/dL 0-130 [facility] Serum or plasma urea nitroge n measurement (mass/volume)Ordered By: Dr. Rizzo on 08-27-2022 Urea nitrogen [Mass/Vol] 18 mg/dL 7-18 [facility] Thin prep Papanicolaou smear with manual screeningOrdered By: Dr. Rizzo on 08-27-2022 Thin prep Papanicolaou smear with manual screening 22 U/L 15-37 [facility] Thin prep Papanicolaou smear with manual screening 7 5-15 [facility] - Microbiology an d Antimicrobial susceptibilityon 04-11-2022 SARS-CoV-2 (COVID-19) RNA JOSÉ LUIS+probe Ql (Unsp spec) Not detected [facility] Work Phone: No Panel Informationon 04-11 Influenza Types A,B Rapid (Clinic) Not detected [facility] Work Phone: Vital Signs Date Time Vital Sign Value Performing Clinician Faci lity 01-03-2025 08:01-0400 Body height 165.[address] Cris Rizzo MD Work Phone: [facility] 01-03-2025 08:01-0400 Body mass index (BMI) [Ratio] 32.9 kg/m2 Dr. Cris Rizzo MD Work Phone: [facility] 01-03-2025 08:01-0400 Body temperature 97 [degF] Dr. Cris Rizzo MD Work Phone: [facility] 01-03-2025 08:01-0400 Body weight 89.[address] Cris Rizzo MD Work Phone: [facility] 01-03-2025 08:01-0400 Diastolic blood pressure 77 mm[Hg] Dr. Cris Rizzo MD Work Phone: [facility] 01-03-2025 08:01-0400 Heart rate 67 /min Dr. Cris Rizzo MD Work Phone: [facility] 01-03-2025 08:01-0400 Respiratory rate 16 /min Dr. Cris Rizzo MD Work Phone: [facility] 01-03-2025 08:01-0400 SaO2% (BldA) [Mass fraction] 97 % Dr. Cris Rizzo MD Work Phone: [facility] 01-03-2025 08:01-0400 Systolic blood pressure 116 mm[Hg] Dr. Crsi Rizzo MD Work Phone: [facility] 12-11-2024 [id number] Body height 164.2 cm Pulm Wstr Work Phone: [facility] 12-11-2024 13:11-0400 Body mass index (BMI) [Ratio] 34.15 kg/m2 Pulm Wstr Work Phone: [facility] 12-11-2024 [id number] Body weight 92.08 kg Pulm Wstr Work Phone: [facility] 12-11-2024 13:11-0400 Heart rate 75 /min Pulm Wstr Work Phone: [facility] 12-11-2024 13:11-0400 Respiratory rate 16 /min Pulm Wstr Work Phone: [facility] 12-11-2024 13:11-0400 SaO2% (BldA) [Mass fraction] 96 % Pulm Wstr Work Phone: [facility] 10-24-2024 12:43-0400 Body height 165.1 cm Belgica Mclain MD Work Phone: [facility] 10-24-2024 12:43-0400 Body mass index (BMI) [Ratio] 33.79 kg/m2 Belgica Mclain MD Work Phone: [facility] 10-24-2024 12:43-0400 Body temperature 97 [degF] Belgica Mclain MD Work Phone: [facility] 10-24-2024 12:43-0400 Body weight 92.1 kg Belgica Mclain MD Work Phone: [facility] 10-24-2024 12:43-0400 Diastolic blood pressure 76 mm[Hg] Belgica Mclain MD Work Phone: [facility] 10-24-2024 12:43-0400 Heart rate 76 /min Belgica Mclain MD Work Phone: [facility] 10-24-2024 12:43-0400 Respiratory rate 18 /min Belgica Mclain MD Work Phone: [facility] 10-24-2024 12:43-0400 SaO2% (BldA) [Mass fraction] 96 % Belgica Mclain MD Work Phone: [facility] 10-24-2024 12:43-0400 Systolic blood pressure 113 mm[Hg] Belgica Mclain MD Work Phone: [facility] 09-05-2024 12:35-0500 Body mass index (BMI) [Ratio] 33.71 kg/m2 Yoselyn Alvarado MD Work Phone: [facility] 09-05-2024 12:35-0500 Body weight 91.9 kg Yoselyn Alvarado MD Work Phone: [facility] 09-05-2024 12:35-0500 Diastolic blood pressure 73 mm[Hg] Yoselyn Alvarado MD Work Phone: [facility] 09-05-2024 12:35-0500 Heart rate 78 /min Yoselyn Alvarado MD Work Phone: [facility] 09-05-2024 12:35-0500 SaO2% (BldA) [Mass fraction] 96 % Yoselyn Alvarado MD Work Phone: [facility] 09-05-2024 12:35-0500 Systolic blood pressure 117 mm[Hg] Yoselyn Alvarado MD Work Phone: [facility] 04-11-2022 10:46-0400 Body height 165.[address] Cris Rizzo Work Phone: [facility] Work Phone: 04-11-2022 10:46-0400 Body mass index (BMI) [Ratio] 30.9 kg/m2 Dr. Cris Rizzo Work Phone: [facility] Work Phone: 04-11-2022 10:46-0400 Body temperature 97.8 [degF] Dr. Cris Rizzo Work Phone: [facility] Work Phone: 04-11-2022 10:46-0400 Body weight 84.[address] Cris Rizzo Work Phone: [facility] Work Phone: 04-11-2022 10:46-0400 Diastolic blood pressure 78 mm[Hg] Dr. Cris Rizzo Work Phone: [facility] Work Phone: 04-11-2022 10:46-0400 Heart rate 62 /min Dr. Cris Rizzo Work Phone: [facility] Work Phone: 04-11-2022 10:46-0400 Respiratory rate 14 /min Dr. Cris Rizzo Work Phone: [facility] Work Phone: 04-11-2022 10:46-0400 SaO2% (BldA) [Mass fraction] 97 % Dr. Cris Rizzo Work Phone: [facility] Work Phone: 04-11-2022 10:46-0400 Systolic blood pressure 134 mm[Hg] Dr. Cris Rizzo Work Phone: [facility] Work Phone: Encounters Encounter Date Encounter Type Care Provider Facility Start: 01-03-2025 End: 01-03-[address] Mayito Alvarado DO -[facility] Work Phone: Start: 01-03-2025 End: 01-03-[address] Cris Rizzo MD Work Phone: [facility] Work Phone: Start: 12-19-2024 End: 12-19-2024 ambulatory SANJANA ROSENBAUM Facility:[facility] Start: 12-18-2024 End: 12-18-2024 ambulatory BELGICA MCLAIN Facility:[facility] Start: 12-18-2024 End: 12-18-2024 ambulatory Kristie Costa [facility] Work Phone: [facility] Comment on above: Interstitial lung di sease (HCC) (Primary Dx); ILD (interstitial lung disease) (HCC); Family history of pulmonary fibrosis; Whitfield hair; Family history of pancreatic cancer; Family history of breast cancer; Family history of kidney cancer; Family history of interstitial lung disease; Lung transplant candidate Start: 12-18-2024 End: 12-18-2024 Telemedicine consultation with patient Kristie Costa [facility] Work Phone: [facility] Start: 12-11-2024 End: 12-11-2024 Patient encounter procedure Pulm Lab [facility] Work Phone: PULM LAB [facility] Start: 12-11-2024 End: 12-11-2024 ambulatory [facility] Phone[facility] Comment on above: Spirometry Start: 10-26-2024 End: 10-26-[address] Cris Rizzo MD -Sleep Lab Work Phone: Start: 10-26-2024 End: 10-26-2024 ambulatory Cris Rizzo Facility:[facility] Start: 10-24-2024 End: 10-24-2024 ambulatory BELGICA MCLAIN Facility:[facility] Start: 10-24-2024 End: 10-24-2024 Office outpatient visit [...] Non-patient / Non-visit Dr. González samuels MD -[facility] Start: 09-13-2024 End: 09-13-[address] Cris Rizzo MD Work Phone: [facility] Work Phone: Start: 09-13-2024 End: 09-13-[address] Jayme Velzaquez MD -Cardiovascular Services Work Phone: Start: 09-13-2024 End: 09-13-2024 ambulatory Cris Rizzo Facility:[facility] Start: 09-05-2024 End: 09-05-2024 ambulatory CRIS RIZZO Facility:[facility] Start: 09-05-2024 End: 09-05-2024 Patient encounter procedure Yoseyln Alvarado MD Work Phone: [facility] Comment on above: ILD (interstitial herman ng disease) (HCC) (Primary Dx); Chronic cough Start: 08-16-2024 End: 08-16-[address] Cris Rizzo MD -Pulmonary Services/Neurology Work Phone: Start: 08-16-2024 End: 08-16-2024 ambulatory Cris Rizzo Facility:[facility] Start: 08-15-2024 End: 08-15-[address] Cris Rizzo MD -Cat Scan, [facility] Work Phone: Start: 08-15-2024 End: 08-15-2024 ambulatory Cris Rizzo Facility:[facility] Start: 08-04-2024 End: 08-04-[address] [facility] Work [facility] Start: 08-04-2024 End: 08-04-2024 ambulatory Cris Rizzo Facility:[facility] Start: 06-21-2024 End: 06-21-[address] Cris Rizzo MD Work Phone: [facility] Work Phone: Start: 06-21-2024 End: 06-21-2024 Patient encounter procedure Kae [employer] DIRECT[employer]-C -Outpatient Bone Densitometry Work Phone: Start: 06-21-2024 End: 06-21-2024 ambulatory KM LINDER Facility:[facility] Start: 04-28-2024 End: 04-28-2024 ambulatory Cris Rizzo Facility:[facility] Start: 01-27-2024 End: 01-27-2024 ambulatory Cris [place] Facility:[facility] Start: 10-19-2022 End: 10-19-2022 ambulatory [facility] Work Phone: Start: 10-19-2022 End: 10-19-2022 Patient encounter procedure [facility] Start: 08-27-2022 End: 08-27-2022 ambulatory [facility] Work Phone: Start: 08-27-2022 End: 08-27-2022 [facility] Start: 06-11-2022 End: 06-11-[address] Cris Rizzo Work Phone: [facility] Work Phone: Start: 06-11-2022 End: 06-11-[address] Cris Rizzo Work Phone: [facility] Start: 04-11-2022 End: 04-11-[address] Cris Rizzo Work Phone: [facility] Start: 03-23-2017 End: 03-24-2017 Ambulatory ROBERTO TODD Facility:[facility] Procedures Date Procedure Procedure Detail Performing Clinician [...] DTaP,Tdap,Td Vaccine (4 - Td or Tdap) [facility] Start: 08-15-2027 Screening for malignant neoplasm of colon Cologuard (FIT-DNA) [facility] Start: 02-12-2025 End: 02-12-2025 ambulatory 02/12/2025 9:30 AM EDT Visit (SP) Office [facility] [address] [place] [address] Kristie Csota [address] [place] [address] If I qualify for immunosuppressant therapy Genetic [facility] Comment on above: If I qualify for immunosuppressant thera py Start: 02-02-2025 End: 02-02-2025 Patient encounter procedure 02/02/2025 1:00 PM EDT Office Visit Pulmonary Medicine [address] [place] [id number] Belgica Mclain MD [address] [place] [address] ILD (interstitial lung disease) (HCC) [J84.9] [facility] Comment on above: ILD (interstitial lung disease) (HCC) [J 84.9] Start: 01-23-2025 End: 11-23-2025 CT Chest WO contrast CT CHEST WO IVCON Radiology Routine ILD (interstitial lung disease) (HCC) Expected: 01/23/2025, Expires: 11/23/2025 [facility] Comment on above: Expected: 01/23/2025, Expires: Start: 01-23-2025 End: 01-23-2025 Patient encounter procedure 01/23/2025 9:20 AM EDT Appointment Cat Scan [address] [place], [place] [id number] ILD (interstitial lung disease) (HCC) [J84.9] Cat Scan Comment on above: ILD (interstitial lung disease) (HCC) [J 84.9] Start: 12-19-2024 End: 03-20-2025 [facility] [place] 1 [facility] Comment on above: Expected: 12/19/2024, Expires: Start: 12-19-2024 End: 03-20-[address] [facility] Work Phone: Comment on above: Expected: 12/19/2024, Expires: Start: 12-18-2024 End: 12-18-2024 ambulatory 12/18/2024 11:30 AM EDT Visit (SP) Office [facility] [address] [place] [address] Kristie Costa, [facility] [address] [place] [address] ILD/STS - Moved up from February per Kristie [facility] Comment on above: ILD/STS - Moved up from February per Kristie Start: 12-11-2024 End: 12-11-2024 ambulatory PULM LAB [facility] Comment on above: Dyspnea and respiratory abnormalities [R 06.00, R06.89] Start: 11-15-2024 Covid-19 Vaccine ( season) Covid-19 Vaccine () [facility] Start: 10-24-2024 End: 10-24-2024 Patient encounter procedure 10/24/2024 1:00 PM EDT Office Visit Pulmonary Medicine [address] [place] [address] Belgica Mclain MD [address] [place] [address] [place] [id number] ILD Pulmonary Medicine Comment on above: ILD Start: 09-05-2024 End: 12-05-2024 LEWIS BY IFA SCREEN [facility] Comment on above: Expected: 09/05/2024, Expires: Start: 09-05-2024 End: 12-05-2024 ANTI NEUTRO CYTO AB [facility] Comment on above: Expected: 09/05/2024, Expires: Start: 09-05-2024 End: 12-05-2024 Cyclic citrullinated peptide IgG Ab [Units/volume] in Serum or Plasma [facility] Comment on above: Expected: 09/05/2024, Expires: Start: 09-05-2024 End: 12-05-2024 DNA ANTIBODY DS BLD [facility] Comment on above: Expected: 09/05/2024, Expires: Start: 09-05-2024 End: 12-05-2024 Extractable nuclear Ab panel - Serum [facility] Comment on above: Expected: 09/05/2024, Expires: Start: 09-05-2024 End: 12-05-[address] [facility] Work Phone: Comment on above: Expected: 09/05/2024, Expires: Start: 09-05-2024 End: 12-05-2024 HYPERSENSITIVITY PNEUMONITIS EVALUATION [facility] Comment on above: Expected: 09/05/2024, Expires: Start: 09-05-2024 End: 12-05-2024 POLYMYOSITIS AND DERMATOMYOSITIS PANEL [facility] Comment on above: Expected: 09/05/2024, Expires: Start: 09-05-2024 End: 12-05-2024 Rheumatoid factor [Units/volume] in Serum or Plasma [facility] Comment on above: Expected: 09/05/2024, Expires: Start: 09-05-2024 End: 12-05-2024 RNA POLYMERASE III AB [facility] Comment on above: Expected: 09/05/2024, Expires: Start: 08-16-2024 Screening for malignant neoplasm of colon Colorectal Cancer Screening [facility] Start: 07-12-2024 Advance Directive Discussion Advance Directive Discussion [facility] Start: 02-28-2024 Screening for malignant neoplasm of colon Colonoscopy [facility] Start: 10-19-2022 Procedure [facility] Start: 04-19-2021 Screening for malignant neoplasm of breast Mammogram Screening [facility] Start: 05-31-2020 Lipid panel Lipid Screening [facility] Start: 12-16-2019 Diabetes Screening Diabetes Screening [facility] Start: 09-09-2017 Medicare Annual Wellness Visit Medicare Annual Wellness Visit [facility] Start: 2002 Shingrix Vaccine (1 of 2) Shingrix Vaccine (1 of 2) [facility] Start: 1997 Screening for malignant neoplasm of colon [facility] Start: 1970 Anxiety Screening Anxiety Screening [facility] Start: 1970 Depression Screening Depression Screening [facility] End: 11-02-2025 LUNG DIFFUSION CAPACITY (DLCO) LUNG DIFFUSION CAPACITY (DLCO) PFT Routine ILD (interstitial lung disease) (HCC) 1 Occurrences starting 10/03/2024 until 11/02/2025 [facility] Comment on above: 1 Occurrences starting 10/03/2024 until 11/02/2025 End: 11-23-2025 LUNG DIFFUSION CAPACITY (DLCO) LUNG DIFFUSION CAPACITY (DLCO) PFT Routine ILD (interstitial lung disease) ([facility]) 1 Occurrences starting 10/24/2024 until 11/23/2025 [facility] Work Phone: Comment on above: 1 Occurrences starting 10/24/2024 until 11/23/2025 Patient referral [facility] Work Phone: End: 11-23-2025 SPIROMETRY - BASELINE AND POST DILATOR SPIROMETRY - BASELINE AND POST DILATOR PFT Routine ILD (interstitial lung disease) ([facility]) 1 Occurrences starting 10/24/2024 until 11/23/2025 [facility] Comment on above: 1 Occurrences starting 10/24/2024 until 11/23/2025 End: 11-02-2025 SPIROMETRY WITH DILATOR IF OBSTRUCTED SPIROMETRY WITH DILATOR IF OBSTRUCTED PFT Routine ILD (interstitial lung disease) ([facility]) 1 Occurrences starting 10/03/2024 until 11/02/2025 [facility] Work Phone: Comment on above: 1 Occurrences starting 10/03/2024 until 11/02/2025 Immunizations Immunization Date Immunization Notes Care Provider [facility] 09-14-2020 COVID-19 original vaccine, age 12+ yr, monovalent (PFIZER-BIONTECH - PURPLE TOP) Yoselyn Alvarado MD Work Phone: [facility] 08-24-2020 COVID-19 original vaccine, age 12+ yr, monovalent (PFIZER-BIONTECH - PURPLE TOP) Yoselyn Alvarado MD Work Phone: [facility] 04-19-2020 influenza (HD-IIV4) vaccine, age 65+ yr, high dose, quadrivalent, PF (FLUZONE HIGH-DOSE) Yoselyn Alvarado MD Work Phone: [facility] 03-06-2020 pneumococcal polysaccharide vaccine, 23 valfederico Alvarado MD Work Phone: [facility] 04-11-2019 Influenza, injectabl e, Madin Gracie Canine Kidney, preservative free, quadrivalent Yoselyn Alvarado MD Work Phone: [facility] 02-10-2019 pneumococcal conjuga te vaccine, 13 valent Yoselyn Alvarado MD Work Phone: [facility] 05-16-2018 Seasonal trivalent influenza vaccine, adjuvanted, preservative free Yoselyn Alvarado MD Work Phone: [facility] 05-27-2017 Influenza, injectabl e, Madin Gracie Canine Kidney, preservative free, quadrivalent Yoselyn Alvarado MD Work Phone: [facility] 05-27-2017 influenza, seasonal, injectable Yoselyn Alvarado MD Work Phone: [facility] 06-21-2015 tetanus toxoid, redu zaid diphtheria toxoid, and acellular pertussis vaccine, adsorbed Yoselyn Alvarado MD Work Phone: [facility] 10-21-2010 tuberculin skin test ; purified protein derivative solution, intradermal Yoselyn Alvarado MD Work Phone: [facility] 03-30-2006 tetanus toxoid, redu zaid diphtheria toxoid, and acellular pertussis vaccine, adsorbed Yoselyn Alvarado MD Work Phone: [facility] Payers Date Payer Category Payer Private Health Insurance [facility] Member Subscriber Plan / Payer (Effective 2024-Present) Name: Rubi Mejia Relation to Subscriber: Self Name: Rubi Mejia Payer ID: [id number] (NAIC) Group ID: Not on file Type: [employer] Address: [facility] [id number] [place] [id number] 2024 Unknown [id number] 2024 Self-pay [id number] 2024 Unknown [id number] 2017 Medicare MEDICARE [id number] 2017 Medicare [id number] Private Health Insurance [facility] [id number] Unknown Unknown [id number] Unknown [id number] Unknown [id number] Unknown [id number] Unknown [id number] Unknown [id number] Unknown [id number] Unknown [id number] Unknown [id number] Unknown [id number] Unknown [id number] Social History Date Type Detail Facility [facility] ever [facility] Work Phone: Start: 1950 Sex Assigned At Female W [facility] Start: 09-05-2024 [facility] Never smoked tobacco [facility] Start: 09-05-2024 Tobacco use and exposure Smoke less tobacco non-user [facility] Start: 09-05-2024 End: 12-21-2024 Alcoholic beverage intake Current drinker of alcohol (finding) [facility] Start: 03-04-2020 End: 09-05-2024 History of Social function [facility] Start: 03-04-2020 End: 09-05-2024 Social connection and isolation panel [facility] Do you belong to any clubs or organizations such as hinduism groups, unions, fraternal or athletic groups, or school groups? Yes [facility] Are you now , , , , never or living with a partner? [facility] How often to you hav e a drink containing alcohol? 4 or more times a week [facility] How many standard dr inks containing alcohol do you have on a typical day? 1 or 2 [facility] How often do you hav e 6 or more drinks on 1 occasion? Never [facility] How hard is it for y ou to pay for the very basics like food, housing, medical care, and heating Not hard at all [facility] Do you feel stress - tense, restless, nervous, or anxious, or unable to sleep at night because your mind is troubled all the time - these days [OSQ] Only a little [facility] (I/We) worried ayan er (my/our) food would run out before (I/we) got money to buy more. Never true [facility] In the past 12 month s, was there a time when you were not able to pay the mortgage or rent on time? No [facility] Start: 03-04-2020 Education 20 [facility] Start: 02-10-2019 Alcohol Comment social- 3-4 gl asses wine a week [facility] Start: 02-07-2019 Gender identity Identifies as female gender (finding) [facility] Start: 02-07-2019 Sexual orientation Homosexual (findi ng) [facility] Tobacco smoking stat us [facility]IS Unknown if ever smoked [facility] Work Phone: Start: 09-24-2024 End: 10-16-2024 Sex Female (finding) [facility] Start: 01-03-2025 Tobacco smoking stat us NHIS Ex-smoker (finding) [facility] Clinical Notes 09-05-2024 to 12-18-2024 Kristie Costa LGC - 12/18/2024 11:30 AM EDTPatient Belgica Dove MD - 10/24/2024 1:00 PM EDTTelephone Encounter - Carlos Ambrocio RN - 10/05/2024 12:10 PM EDT Note Date & Type Note Facility 12-18-2024 History of Presen t illness Narrative Images from the original note were not included. [facility] Department of Medical Genetics Telomere Biology Disorders Clinic Consultation Note Genetic Counselor: Kristie Costa, [facility] Patient: Rubi Mejia This visit was conducted via Alter-G. I have communicated my name and active licensure. The patient's identity and physical location were verified at the time of this visit. Either the patient or their legal clearance representative has been informed of the risks [...] Leukemia/MDS panel plus preliminiary evidence genes through [facility]. Results are expected in 3-4 weeks pending [...] the patient reports that she drank furniture niuean at age 4 w/ aspiration which caused [...] are of descent. There is no Ashkenazi Buddhist ancestry. There is no known consanguinity. Heme/Onc [...] telomere length analysis via flow FISH through [facility]. After reviewing the testing options, the patient elected to pursue germline genetic testing via Custom Pulmonary Fibrosis, Multi-Cancer, and Leukemia/MDS panel plus preliminiary evidence genes through [facility] and telomere length analysis via flow FISH through [facility]. The Custom Pulmonary Fibrosis panel through [facility] includes the following 27 genes: ABCA3, ACD, CISD2, CSF2RA, CSF2RB, CTC1, DKC1, KPQMF0X, NAF1, NHP2, NKX2-1, NOP10, PARN, POT1, RTEL1, SFTPB, SFTPC, PEJ61V8, SLC7A7, SMPD1, STAT3, STN1, TERC, TERT, TINF2, WRAP53, ZCCHC8. The Custom Multi-Cancer Panel and Hereditary Myelodysplastic Syndrome/Leukemia Panel through [facility] includes the following 96 genes: AIP, ALK, ANKRD26, APC, RAY, AXIN2, BAP1, BARD1, BLM, BMPR1A, BRCA1, BRCA2, BRIP1, CBL, CDC73, CEBPA, CDH1, CDK4, CDKN1B, CDKN2A, CHEK2, CTNNA1, DDX41, DICER1, EGFR, ELANE, EPCAM, WFMW1L3, ETV6, FH, FLCN, G6PC3, GATA2, GFI1, GREM1, HAX1, HOXB13, IKZF1, KIT, KRAS, LZTR1, MAX, MBD4, MECOM, MEN1, MET, MITF, MLH1, MSH2, MSH3, MSH6, MUTYH, NBN, NF1, NF2, NTHL1, PALB2, PDGFRA, PMS2, POLD1, POLE, POT1, LIXTP0I, PTCH1, PTEN, PTPN11, RAD51C, RAD51D, RB1, RET, RTEL1, RUNX1, SAMD9, SAMD9L, SDHA, SDHAF2, SDHB, SDHC, SDHD, SMAD4, SMARCA4, SMARCB1, SMARCE1, SRP72, STK11, SUFU, TERC, TERT, OJTD206, TP53, TSC1, TSC2, and VHL. Preliminary evidence [...] to the presenting phenotype We discussed that [facility] may contact the patient regarding billing. The patient should watch for this communication and respond promptly. The patient should contact [facility] directly with any billing questions (ph. [phone] or [email or web address]) . We reviewed that even in the case that insurance approves genetic testing, the patient may still receive a bill related to an unmet deductible or coinsurance. The patient was directed to contact their insurance company directly if they have questions about their benefits. Per the patient's request, we will contact her by Hipsterhart or telephone to discuss these results. A follow up genetic counseling visit will be scheduled if requested. I spent a total of 40 minutes on the date of the service, which included preparing to see the patient, [id number] patient care, completing clinical documentation, obtaining and/or reviewing separately obtained history, counseling and educating the patient/family/caregiver, ordering tests, communicating with other HCPs (not separately reported), independently interpreting results (not separately reported), communicating results to the patient/family/caregiver, and care coordination (not separately reported). ERENDIRA Owens CGC Licensed, Certified Genetic Counselor EPIC CC: Dr. Belgica Rosenbaum documented in this encounter [facility] 12-18-2024 Note HNO ID: [id number] Author: KRISTIE COSTA LGC Service: ? Author Type: Genetic Counselor Type: Progress Notes Filed: 12/21/2024 15:20 Note Text: [facility] Department of Medical Genetics Telomere Biology Disorders Clinic Consultation Note Genetic Counselor: ERENDIRA Owens [facility] Patient: Rubi Mejia This visit was conducted via [employer]ter-G. I have communicated my name and active licensure. The patient's identity and physical location were verified at the time of this visit. Either the patient or their legal clearance representative has been informed of the risks [...] the patient reports that she drank furniture niuean at age 4 w/ aspiration which caused [...] smoker Incontinentia pigm (more content not included)... [facility] 10-24-2024 Instructions Belgica Mclain MD - 10/24/2024 1:51 PM EDT Please complete lab test and breathing test in 3-6 months Please see the genetics. Please read the information below; it may or may not be relavant in the near future. Visit the pulmonary fibrosis foundation website. Please call the numbers below should you wish further assistance: Nursing assistance: [phone] Dr. Mclain's office and appointments: [phone] Jaqueline Ramires's office: [phone] Appointments: [phone] Mycophenolate Mycophenolate Mofetil (CellCept) and Mycophenolate Sodium [...] there are signs of an infection. Source- [employer] www.ACRpatientinfo.org Nintedanib (OFEV) What [...] of these drugs: Carbamazepine, phenytoin, rifampin, or [place]'s wort. If you are breast-feeding. Do not [...] how much, and when it happened. Source- www.[employer] Pirfenidone (ESBRIET) What is this drug used [...] how much, and when it happened. Source- www.Enviance documented in this encounter [facility] 10-24-2024 Note HNO ID: [id number] Author: BELGICA MCLAIN MD Service: ? Author [...] CT chest with (more content not included)... [facility] 10-24-2024 History of Presen t illness Narrative [...] with more than 50% of the total [id number] time of the visit in counseling / coordination of care. Note forwarded to primary shake backboard notcher. Patient was agreeable to plan, and all [...] indicated now Signed: Sumaya Mclain MD, MS, [facility] Staff Physician [facility] 10/24/2024 1:00 PM Thank you for entrusting the care of this patient to the Interstitial Lung Disease Program. The patient will be returning to you for your continued care. We are happy to collaborate with you in any way. Please contact us if we can be of any assistance. Pulmonary Medicine documented in this encounter [facility] 10-05-2024 Telephone encounter Note Pt called in stating she is requesting Aug 2024 PFTs from [facility] to be faxed over for upcoming appointment. [facility] 10-05-2024 Miscellaneous Notes Pt called in stating she is requesting Aug 2024 PFTs from [facility] to be faxed over for upcoming appointment. documented in this encounter [facility] 10-03-2024 Telephone encounter Note Summary: New ILD Interstitial Lung Disease Referral Intake Patient: Rubi Mejia Date: October 03, 2024 9:27 AM Schedulers: --Please schedule patient with any ILD provider ILD Dr. Toya Joiner: [facility]. Dr. Nikunj Cherry: [facility] & [place] (2023). Dr. Facundo Gore: [facility] & [facility]. Dr. Carolyne Rueda: [facility] & [place]. Dr. Karolina Mercedes: [facility]. ILD/Sarcoid Dr. Belgica Mclain: [facility] & [place]. Dr. Fazal Sy: [facility] & [facility] Dr. Laurent Dennis: [facility] and [facility] Dr. Thiago Gonzalez: [facility], [facility]), & [place] Dr. David Holbrook: [facility] & [place]. Dr. Rosemary Mcdonough: [facility], [facility] & [facility] Sarcoid/ILD Pulmonary [place]: [facility] ( afternoon). Dr. Karolina Mercedes: [facility]. & [place]. ILD/Sarcoid/Beryllium/Occupation al Dr. Alice Long: [facility], [place], [place], & [place]. Testing needed: Spirometry w/ bronchodilator if obstructed and DLCO. MyChart: Already set up. *Remind patient to bring imaging disc in hand. Consult information: Referred by: Dr. Carlos Bhat Office name/city: [facility] Diagnosis: ILD- likely IPF CT chest: yes, imported Most recent date: 08/2024 Location performed: [facility] Biopsy: None Type: Date: Location performed: Current [...] this to your appointment. Klarissa Pineda RN [facility] 10-03-2024 Miscellaneous Notes Summary: New ILD Interstitial Lung Disease Referral Intake Patient: Rubi Mejia Date: October 03, 2024 9:27 AM Schedulers: --Please schedule patient with any ILD provider ILD Dr. Toya Joiner: [facility]. Dr. Nikunj Cherry: [facility] & [place] (2023). Dr. Facundo Gore: [facility] & [facility]. Dr. Carolyne Rueda: [facility] & [place]. Dr. Karolina Mercedes: [facility]. ILD/Sarcoid Dr. Belgica Mclain: [facility] & [place]. Dr. Fazal Sy: [facility] & [facility] Dr. Laurent Dennis: [facility] and [facility] Dr. Thiago Gonzalez: [facility], [facility] & [place]. Dr. David Holbrook: [facility] & [place]. Dr. Rosemary Mcdonough: [facility], [facility] & [facility] Sarcoid/ILD Pulmonary [place]: [facility] ( afternoon). Dr. Karolina Mercedes: [facility]. & [place]. ILD/Sarcoid/Beryllium/Occupation al Dr. Alice Long: [facility], [place], [place], & [place]. Testing needed: Spirometry w/ bronchodilator if obstructed and DLCO. MyChart: Already set up. *Remind patient to bring imaging disc in hand. Consult information: Referred by: Dr. Carlos Bhat Office name/city: [facility] Diagnosis: ILD- likely IPF CT chest: yes, imported Most recent date: 08/2024 Location performed: [facility] Biopsy: None Type: Date: Location performed: Current [...] Klarissa Pineda RN documented in this encounter [facility] 09-27-2024 Note HNO ID: [id number] Author: CARLOS MCKEE MD Service: ? Author Type: Physician Type: Progress Notes Filed: 09/27/2024 09:59 Note Text: E-Consult Response Thank you Dr. Alvarado to the interesting E consult. In response to your eConsult request to [facility] for Rubi Luevanomarla regarding the clinical [...] IPF. Please upload the CT images to [facility] when feasible. E-Consult follow up recommendation:An appointment will be coordinated by [facility] Carlos Bhat MD September 27, [address] [facility] 09-27-2024 History of Presen t illness Narrative E-Consult Response Thank you Dr. Alvarado to the interesting E consult. In response to your eConsult request to [facility] for Rubi Mejia regarding the clinical [...] IPF. Please upload the CT images to [facility] when feasible. E-Consult follow up recommendation:An appointment will be coordinated by [facility] Carlos Bhat MD September 27, 2024 documented in this encounter [facility] 09-05-2024 History of Presen t illness Narrative Images from the original note were not included. . [facility] Note Patient name: Rubi Mejia PCP: Cris [...] 82% Imaging / Diagnostic Studies: Chest CT [facility] 08/15/2024: Chest CT shows peripheral reticulations [...] which included preparing to see the patient, [id number] patient care, completing clinical documentation, performing an appropriate physical exam, obtaining and/or reviewing separately obtained history, counseling and educating the patient/family/caregiver, ordering medications, tests, or procedures, and independently interpreting results (not separately reported). Yoselyn Alvarado MD [facility] documented in this encounter [facility] 09-05-2024 Note HNO ID: [id number] Author: YOSELYN ALVARADO MD Service: ? Author Type: Physician Type: Progress Notes Filed: 09/05/2024 20:05 Note Text: . [facility] Note Patient name: Rubi Mejia PCP: Cris [...] 82% Imaging / Diagnostic Studies: Chest CT [facility] 08/15/2024: Chest CT shows peripheral reticulations [...] which included preparing to see the patient, [id number] patient care, completing clinical documentation, performing an appropriate physical exam, obtaining and/or reviewing separately obtained history, counseling and educating the patient/family/caregiver, ordering medications, tests, or procedures, and independently interpreting results (not separately reported). Yoselyn Alvarado MD [facility] Evaluation note Diagnosis Onset Date URI (upper respiratory infection) acute [facility] Work Phone: Evaluation noteNo assessment information available [facility] Work Phone: Evaluation note* Diagnosis ILD (interstitial lung disease) (HCC)- Primary Postinflammatory pulmonary fibrosis Chronic cough Cough [facility] Diagnosis ILD (interstitial lung disease) (HCC)- Primary Postinflammatory pulmonary fibrosis [facility] Diagnosis ILD (interstitial lung disease) (HCC)- Primary Postinflammatory pulmonary fibrosis [facility] this [facility] Diagnosis ILD (interstitial lung disease) (HCC)- Primary Postinflammatory pulmonary fibrosis Chronic cough Cough Gastroesophageal reflux disease without esophagitis Esophageal reflux Family history of pulmonary fibrosis Family history of other chronic respiratory conditions [place] hair Variations in hair color [facility] Diagnosis ILD (interstitial lung disease) (HCC) Postinflammatory pulmonary fibrosis [facility] Diagnosis ILD (interstitial lung disease) (HCC) Postinflammatory pulmonary fibrosis [facility] Diagnosis Interstitial lung disease (HCC)- Primary [...] Lung transplant candidate [facility] Diagnosis Onset Date Resolution Status Admit Date Interstitial lung disease acute January 03, 2025 9:30am BRYANNA (obstructive sleep apnea) acute January 03, 2025 9:30am [facility] Work Phone: Reason for referral (narrative)No reason for referral information [facility] Work Phone: Summary Purpose Family History No Family History Records FoundNo Family History Records FoundNo Family History Records FoundNo Family History Records Found Advance Directives No Advanced Directives Records FoundDocuments on File Type Date Recorded Patient System Sales Consultant Expl anation Advance Directive(s) 02/27/2019 11:03 AM Advance Directive(s) 02/27/2019 11:02 AM Documents on File Type Date Recorded Patient System Sales Consultant Expl anation Advance Directive(s) 02/27/2019 11:03 AM [...] section and content) DATE CREATED AUTHOR 01/05/2018 [facility] DATE CREATED AUTHOR AUTHOR'S ORGANIZ ATION 01/05/2018 [facility] DATE CREATED AUTHOR AUTHOR'S ORGANIZ ATION 01/04/2025 [facility] DATE CREATED AUTHOR AUTHOR'S ORGANIZ ATION 01/05/[address] [facility] Goals (unrecognized section and content) Goals may [...] Dr. Hardeep Oconnor MD Attending Provider Active Head Of Store Operations Relationship Specialty Start Date End Date Cris Rizzo MD [address] [place] [address] PCP - General Family Medicine 06/03/21 Head Of Store Operations Relationship Specialty Start Date End Date Cris Rizzo MD [address] [place], [place] [address] PCP - General Family Medicine 06/03/21 Head Of Store Operations Relationship Specialty Start Date End Date Cris Rizzo MD [address] [facility], [place] [id number] PCP - General Family Medicine 06/03/21 Head Of Store Operations Relationship Specialty Start Date End Date Cris Rizzo MD [address] [facility], [place] [address] PCP - General Family Medicine 06/03/21 Head Of Store Operations Relationship Specialty Start Date End Date Cris Rizzo MD [address] [place] [address] PCP - General Family Medicine 06/03/21 Head Of Store Operations Relationship Specialty Start Date End Date Cris Rizzo MD [address] [place] [address] PCP - General Family Medicine 06/03/21 Head Of Store Operations Relationship Specialty Start Date End Date Cris Rizzo MD [address] [facility] [place], [place] [address] PCP - General Family Medicine 06/03/21 Head Of Store Operations Relationship Specialty Start Date End Date Cris Rizzo MD [address] [facility] [place], [place] [address] PCP - General Family Medicine 06/03/21 Head Of Store Operations Relationship Specialty Start Date End Date Cris Rizzo MD [address] [facility] [place], [place] [id number] PCP - General Family Medicine 06/03/21 Head Of Store Operations Relationship Specialty Start Date End Date Cris Rizzo MD [address] [facility] [place], [place] [address] PCP - General Family Medicine 06/03/21 Team [...] or prosecute any alcohol or drug abuse patient.[facility] the event this information is protected by the Federal Confidentiality of Alcohol and Drug Abuse Patient Records regulations: The Federal rules restrict any use of the information to criminally investigate or prosecute any alcohol or drug abuse patient.[facility] the event this information is protected by the Federal Confidentiality of Alcohol and Drug Abuse Patient Records regulations: The Federal rules restrict any use of the information to criminally investigate or prosecute any alcohol or drug abuse patient.[facility] the event this information is protected by the Federal Confidentiality of Alcohol and Drug Abuse Patient Records regulations: The Federal rules restrict any use of the information to criminally investigate or prosecute any alcohol or drug abuse patient.[facility] the event this information is protected by the Federal Confidentiality of Alcohol and Drug Abuse Patient Records regulations: The Federal rules restrict any use of the information to criminally investigate or prosecute any alcohol or drug abuse patient.[facility] the event this information is protected by the Federal Confidentiality of Alcohol and Drug Abuse Patient Records regulations: The Federal rules restrict any use of the information to criminally investigate or prosecute any alcohol or drug abuse patient.[facility] the event this information is protected by the Federal Confidentiality of Alcohol and Drug Abuse Patient Records regulations: The Federal rules restrict any use of the information to criminally investigate or prosecute any alcohol or drug abuse patient.[facility] the event this information is protected by the Federal Confidentiality of Alcohol and Drug Abuse Patient Records regulations: The Federal rules restrict any use of the information to criminally investigate or prosecute any alcohol or drug abuse patient.[facility] the event this information is protected by the Federal Confidentiality of Alcohol and Drug Abuse Patient Records regulations: The Federal rules restrict any use of the information to criminally investigate or prosecute any alcohol or drug abuse patient.[facility] the event this information is protected by the Federal Confidentiality of Alcohol and Drug Abuse Patient Records regulations: The Federal rules restrict any use of the information to criminally investigate or prosecute any alcohol or drug abuse patient.[facility] the event this information is protected by the Federal Confidentiality of Alcohol and Drug Abuse Patient Records regulations: The Federal rules restrict any use of the information to criminally investigate or prosecute any alcohol or drug abuse patient.[facility] Reason for Visit (unrecogniz ed section and content) Reason Comments Cough Reason Comments Orders Reason Comments New ILD Reason Comments Request Outside Medical Records PFTs Reason Comments Consult ILD Breathing Problem Specialty Diagnoses / Procedures Referred By Contac t Referred To [facility] Diagnoses ILD (interstitial lung disease) (HCC) Procedures LUNG DIFFUSION CAPACITY (DLCO) DIFFUSING CAPACITY Nathalia Barraza, RICKY.[employer] [address] [address] Phone: tel: fax: [place] [phone] Referral ID Status Reason Start Date Expiration Date V isits Requested Visits Authorized [id number] Closed Auto-Generate d Referral 10/03/2024 11/02/2025 1 1 Reason Comments Spirometry Specialty Diagnoses / Procedures Referred By Contac t Referred To [facility] Diagnoses ILD (interstitial lung disease) ([facility]) Procedures SPIROMETRY - BASELINE AND POST DILATOR BRNCDILAT RSPSE SPMTRY PRE&POST-BRNCDILAT ADMN Belgica Mclain MD [address] [place] [address] Phone: tel: fax: [place] [address] Referral ID Status Reason Start Date Expiration Date V isits Requested Visits Authorized [id number] Closed Auto-Generate d Referral 10/24/2024 11/23/2025 1 1 Specialty Diagnoses / Procedures Referred By Contac t Referred To Contact [facility] Diagnoses ILD (interstitial lung disease) ([facility]) Procedures LUNG DIFFUSION CAPACITY (DLCO) DIFFUSING CAPACITY Belgica Mclain MD [address] [place] [id number] Phone: tel: fax: [place] [address] Referral ID Status Reason Start Date Expiration Date V isits Requested Visits Authorized [id number] Closed Auto-Generated Referral Patient Cleared - INN Insurance Found 10/24/2024 11/23/2025 1 1 Reason Comments Pulmonary Fibrosis Specialty Diagnoses / Procedures Referred By Contac t Referred To Contact Diagnoses ILD (interstitial lung disease) (HCC) Family history of pulmonary fibrosis [place] hair Procedures CONSULT TO MEDICAL GENETICS - HEMATOLOGY OFFICE/OUTPATIENT [facility] 60 MINUTES MEDICAL GENETICS COUNSELING EACH 30 MINUTES Belgica Mclain MD [address] [place] [phone] Phone: tel: fax: [facility] [address] [place] [address] Referral ID Status Reason Start Date Expiration Date V isits Requested Visits Authorized [id number] Closed PCP Requested Referral Auto-Generated Referral 10/24/2024 [...] BE BASED ON THE PRIMARY CLINICAL RECORDS. [email or web address] provides no warranty or guarantee of the accuracy or completeness of information in this document.
== END | disposition home or self-care (01) ==
LOC: SL 13:04
PROVIDERS: PCP Family Medicine; Visit Provider Internal Medicine Critical Care Medicine
DX: Z46.89 Encounter for fitting and adjustment of other specified devices (principal)